=== PATIENT | male | born 1970 | race African-American/Black ===

== ENCOUNTER 2023-08-22 09:14 | Outpatient (CLI) | payer OTHER, SELFPAY ==
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
== END 2023-08-22 09:15 | disposition home or self-care (01) ==
DX: M86.8X6 Other osteomyelitis, lower leg (principal)
CPT/HCPCS: 73590

== ENCOUNTER 2023-09-18 08:26 | Outpatient (CLI) | payer OTHER, SELFPAY ==
[2023-09-20 14:11] VITALS: BMI 37.2
--- NOTE | 2023-09-20 14:11 | WPDHOMESLEEP ---
Sleep Study - Home Unattended Date of Study: 09/18/23 Ordering Provider: Enedina Chow NP Interpreting Provider: Chloe Arellano MD Home Sleep Study Type: Watch PAT Height: 1.91 m Weight: 135.171 kg Body Mass Index: 37.2 Neck Circumference (inches): 18.5 [place]: 12 Reason for Sleep Study Hypersomnolence Sleep History Carlitos Melendez is a 53-year-old male with snoring, deviated septum, hypertrophy of the nasal turbinates and allergic rhinitis. He complains of excessive daytime fatigue and non-restorative sleep. He has had COVID about 5 times and has lost his sense of taste and smell. He rarely awakens from sleep feeling short of breath or awakens at night with heartburn, belching or coughing. He frequently snores, rarely loudly enough that others complain about it. He occasionally has difficulty sleeping with a cold. He rarely wakes up gasping for breath at night. He rarely sweats excessively at night. He frequently notices his heart pounding or beating irregularly at night. He does not fall asleep during the day, does not fall asleep involuntarily or while driving. He does not have loss of muscle tone with strong emotion. He rarely has daytime difficulties due to excessive sleepiness he rarely feels paralyzed on waking or falling asleep. He does not have vivid dreamlike scenes upon awakening or falling asleep. He occasionally feels afraid to go to sleep. He does not have nightmares. He occasionally remembers his dreams. He never has racing thoughts. He rarely feels sad or depressed. He occasionally worries and has anxiety. He rarely has muscular tension. He rarely notices parts of his body jerking. He rarely kicks at night. He rarely has crawling or aching feelings in his legs, occasionally has leg pain at night. He rarely has morning jaw pain. He does not grind his teeth at night. He occasionally is bothered by pain during the day. He never is awakened by pain at night. He never wakes up feeling stiff in the morning. He rarely wakes up with sore achy muscles. He does not wake up with pain in the neck and spine. Normal bedtime is 8:00 p.m. falling asleep within 15 minutes, waking up twice at night, will go get something to eat and then return to sleep within 10 minutes. He estimates getting 5 hours of sleep at night. His morning wake time is 5:00 a.m.. He takes naps in the afternoon or evening. A short nap lasting 10-15 minutes is not refreshing. He is drowsy for 2 hours after waking. He feels better in the morning compared to other times of day. Habits: none Caffeine: 1 or 2 cups per day Alcohol: none Recreational substances: none [facility] Past Medical History Medical History (Updated 09/20/23 @ 14:25 by Chloe Arellano MD) Acid reflux Allergic rhinitis Asthma Deviated nasal septum Diabetes Fatigue Hyperlipidemia Hypertension Family History Family History (Updated 09/20/23 @ 14:19 by Chloe Arellano MD) Other Asthma Hypertension Social History Social History (Updated 09/20/23 @ 14:20 by Chloe Arellano MD) Smoking status: Never smoker Medications Medications: Glipizide 5 mg Lisinopril 40 mg Rybelsus 7 mg Amlodipine besylate 10 mg Metformin HCL ER 500 mg extended release, 2 tablets b.i.d. Rosuvastatin calcium 10 mg daily Fingersticks to check glucose Sleep Procedure The sleep study was completed using [employer] a technically adequate device with seven channels: peripheral arterial tone, actigraphy, body position, snore, respiratory movement, pulse oximetry, sleep staging, and heart rate. Prior to using the device, the patient received verbal and written instructions for its application and was provided with the help desk phone number for additional telephonic instruction with 24-hour availability of qualified personnel to answer questions. Sleep Architecture The total recording time is 6 hours 9 minutes. The total sleep time is 5 hours 51 minutes. Sleep la
== END 2023-09-19 12:55 | disposition home or self-care (01) ==
LOC: ANHCSM 08:27
DX: G47.33 Obstructive sleep apnea (adult) (pediatric) (principal)
CPT/HCPCS: 95800

== ENCOUNTER 2023-10-16 08:50 | Outpatient (CLI) | payer OTHER, SELFPAY ==
--- NOTE | 2023-11-07 10:26 | WPDSLEEPSTUD ---
Sleep Study Date of Study: 10/16/23 Ordering Provider: Enedina Chow Interpreting Physician: Chloe Arellano MD Sleep Study Type: BiPAP Titration Height: 1.91 m Weight: 138.346 kg Body Mass Index: 38.1 Neck Circumference (inches): 19 [place]: 12 Reason for Sleep Study * 09/18/2023 WatchPat home sleep test = extremely severe obstructive sleep apnea with an overall apnea-hypopnea index 69, and a central apnea index of 6.1, desaturation to 68% and over 2 hours spent below 88% He returns for a titration Sleep History Carlitos Melendez is a 53-year-old male with snoring, deviated septum, hypertrophy of the nasal turbinates and allergic rhinitis. He complains of excessive daytime fatigue and non-restorative sleep. He has had COVID about 5 times and has lost his sense of taste and smell. He rarely awakens from sleep feeling short of breath or awakens at night with heartburn, belching or coughing. He frequently snores, rarely loudly enough that others complain about it. He occasionally has difficulty sleeping with a cold. He rarely wakes up gasping for breath at night. He rarely sweats excessively at night. He frequently notices his heart pounding or beating irregularly at night. He does not fall asleep during the day, does not fall asleep involuntarily or while driving. He does not have loss of muscle tone with strong emotion. He rarely has daytime difficulties due to excessive sleepiness he rarely feels paralyzed on waking or falling asleep. He does not have vivid dreamlike scenes upon awakening or falling asleep. He occasionally feels afraid to go to sleep. He does not have nightmares. He occasionally remembers his dreams. He never has racing thoughts. He rarely feels sad or depressed. He occasionally worries and has anxiety. He rarely has muscular tension. He rarely notices parts of his body jerking. He rarely kicks at night. He rarely has crawling or aching feelings in his legs, occasionally has leg pain at night. He rarely has morning jaw pain. He does not grind his teeth at night. He occasionally is bothered by pain during the day. He never is awakened by pain at night. He never wakes up feeling stiff in the morning. He rarely wakes up with sore achy muscles. He does not wake up with pain in the neck and spine. Normal bedtime is 8:00 p.m. falling asleep within 15 minutes, waking up twice at night, will go get something to eat and then return to sleep within 10 minutes. He estimates getting 5 hours of sleep at night. His morning wake time is 5:00 a.m.. He takes naps in the afternoon or evening. A short nap lasting 10-15 minutes is not refreshing. He is drowsy for 2 hours after waking. He feels better in the morning compared to other times of day. Habits: none Caffeine: 1 or 2 cups per day Alcohol: none Recreational substances: none [facility] Past Medical History Medical History Acid reflux Allergic rhinitis Asthma Deviated nasal septum Diabetes Fatigue Hyperlipidemia Hypertension Family History Family History Other Asthma Hypertension Social History Social History Smoking status: Never smoker Medications Medications: Glipizide 5 mg Lisinopril 40 mg Rybelsus 7 mg Amlodipine besylate 10 mg Metformin HCL ER 500 mg extended release, 2 tablets b.i.d. Rosuvastatin calcium 10 mg daily Fingersticks to check glucose Sleep Procedure A full CPAP/BiPAP polysomnogram using the [employer] multi-channel system recorded the standard physiologic parameters including EEG, EOG, submentalis EMG, anterior tibialis EMG, EKG, body position, nasal and oral airflow using nasal pressure sensor and thermistor. Respiratory parameters of chest and abdominal movements were recorded with Respiratory Inductance Plethysmography belts. Oxygen saturat
[2023-11-07 11:23] VITALS: BMI 38.1
== END 2023-10-17 07:16 | disposition home or self-care (01) ==
LOC: ANHCSM 08:51
DX: G47.33 Obstructive sleep apnea (adult) (pediatric) (principal); Z68.38 Body mass index [BMI] 38.0-38.9, adult
CPT/HCPCS: 95811

== ENCOUNTER 2023-10-17 13:46 | Outpatient (CLI) | payer OTHER, SELFPAY ==
--- NOTE | ~2023-10-17 | XR_ITS ---
XR chest 2V DATE: 10/17/2023 14:02 INDICATION: Cough for 2 weeks TECHNIQUE: PA and lateral views COMPARISON: None FINDINGS: No pulmonary infiltrate or consolidation, pleural effusion or pulmonary vascular congestion or pneumothorax. The cardiac and is also 3 unremarkable. IMPRESSION: No active cardiopulmonary disease Reviewed, dictated and finalized at location B.
--- NOTE | 2023-11-01 18:59 | P.SLEEP_ITS ---
Sleep Study Date of Study: 10/16/2023 Ordering Provider: LOUISA Hamm Interpreting Physician: Chloe Arellano MD Height: 1.91 m Weight: 138.3 kg Body Mass Index: 38.1 Neck Circumference (inches): 19 [place]: 12 Reason for Sleep Study This study was opened in error. Please see completed report 11/07/23. PMFSH Past Medical History Medical History Acid reflux Allergic rhinitis Asthma Deviated nasal septum Diabetes Fatigue Hyperlipidemia Hypertension Family History Family History Other Asthma Hypertension Social History Social History Smoking status: Never smoker Assessment and Plan Assessment and Plan (1) Obstructive sleep apnea: Code(s): G47.33 - Obstructive sleep apnea (adult) (pediatric) Status: Acute
== END 2023-10-17 13:47 | disposition home or self-care (01) ==
LOC: ANHIMG 13:49
DX: R05.1 Acute cough (principal)
CPT/HCPCS: 71046

== ENCOUNTER 2024-10-13 16:47 | Inpatient (IN) | payer OTHER, SELFPAY ==
[2024-10-13] VITALS (12 sets, daily range): BP systolic 107–143; BP diastolic 73–109; PULSE 110–135; RESP 17–23; TEMP 36.5–36.8; O2SAT 95–99; BMI 33.6
--- OUTSIDE RECORDS SUMMARY | 2024-10-13 16:49 | XMS_ITS | Referral Summary ---
Author Organization [facility] Address [address] [place] [address] Care Team Providers Care Quality Compliance Consultant Name Role Phone Referral, Self Primary Care Provider Unavailabl e Encounters Date Type Department Care Team Description 07/22/2024 2:16 PM BREAST WORKER - 07/22/2024 11:59 PM BREAST WORKER Hospital Encounter [facility] [address] [place] [address] Discharge Disposition: Discharge to home or self care 07/22/2024 1:20 PM BREAST WORKER Office Visit [facility] Infectious Diseases [address] [place] [address] Yazmin Loco NP Other chronic osteomyelitis of left tibia (HCC) (Primary Dx) from Last 3 Months Allergies No known active allergies Medications amLODIPine (NORVASC) 10 mg tablet Take 1 tablet (10 mg total) by mouth daily Active metFORMIN (GLUCOPHAGE) 500 mg tablet Take 1 tablet (500 mg total) by mouth 2 (two) times a day with meals Active semaglutide (Rybelsus) 7 mg tablet Take 1 tablet (7 mg total) by mouth daily Active lisinopriL (PRINIVIL,ZESTR IL) 20 mg tablet Take 1 tablet (20 mg total) by mouth daily Active rosuvastatin (CRESTOR) 10 mg tablet Take 1 tablet (10 mg total) by mouth daily Active albuterol HFA (PROVENTIL HFA,VENTOLIN HFA,PROAIR HFA) 90 mcg/actuation inhaler Inhale 2 puffs every 6 (six) hours as needed for wheezing Active cephalexin (KEFLEX) 500 mg capsule Take 1 capsule (500 mg total) by mouth Active montelukast (SINGULAIR) 10 mg tablet Take 1 tablet (10 mg total) by mouth nightly Active OneTouch Ultra Test strip USE 1 STRIP TO CHECK GLUCOSE TWICE DAILY 30 MINUTES BEFORE AND AFTER 1ST MEAL OF THE DAY, BRING READING TO YOUR NEXT APPOINTMENT 4 Active FLUoxetine (PROzac) 20 mg capsule TAKE 1 CAPSULE BY MOUTH ONCE DAILY IN THE MORNING 4 Active cetirizine (ZyrTEC) 10 mg tablet Take 1 tablet (10 mg total) by mouth daily 4 Active polycarbophil (FIBERCON) 625 mg tablet Take 1 tablet (625 mg total) by mouth 2 (two) times a day Active OneTouch Delica Plus Lancet 33 gauge misc USE 1 TO CHECK GLUCOSE TWICE DAILY 30 MINUTES BEFORE AND AFTER 1ST MEAL OF THE DAY, BRING READING TO YOUR NEXT APPOINTMENT 4 Active risperiDONE (RisperDAL) 4 mg tablet Take 1 tablet (4 mg total) by mouth nightly 4 Active risperiDONE (RisperDAL) 3 mg tablet Take 1 tablet (3 mg total) by mouth nightly 4 Active omeprazole (PriLOSEC) 20 mg capsule Take 1 capsule (20 mg total) by mouth daily Active fluticasone propionate (FLONASE) 50 mcg/actuation nasal spray USE 1 SPRAY(S) IN EACH NOSTRIL ONCE DAILY 4 Active triamcinolone (NASACORT) 55 mcg nasal inhaler Administer 2 sprays into affected nostril(s) daily Active doxycycline 100 mg tablet Take 1 tablet (100 mg total) by mouth daily 30 tablet 5 5 01/19/20 25 Active naproxen (NAPROSYN) 500 mg tablet Take 1 tablet (500 mg total) by mouth 2 (two) times a day with meals for 10 days 20 tablet 5 Active Active Problems Problem Noted Date Diagnosed Date Osteomyelitis of left tibia 10/14/2023 Assessment & Plan (07/27/2024 12:09 PM BREAST WORKER): -Patient presents to clinic for a follow up appointment. -We will continue him on his Doxycyline for chronic suppression. -We reivewed his x-rays - We will have him reach out to ortho to reschedule his appointment. -We will repeat labs today -We reviewed his CT scan. -We will order some naproxen to help with the pain while he waits to get into Ortho. - Discussed with patient the rational for treatment, culture results, risk of recurrent infection, signs/symptoms of recurrent infection, and to contact ID clinic with any questions or concerns. Assessment & Plan (03/09/2024 3:59 PM CDT): -Patient presents to clinic for a follow up appointment. -We will continue him on his Doxycyline for chronic suppression. -We reivewed his x-rays -His swelling and pain continues. We will have him reach out to ortho to reschedule his appointment. -We will repeat labs today -We reviewed his CT scan. -We will order some naproxen to help with the pain while he waits to get into Ortho. - Discussed with patient the rational for treatment, culture results, risk of recurrent infection, signs/symptoms of recurrent infection, and to contact ID clinic with any questions or concerns. Assessment & Plan (01/27/2024 12:37 PM CDT): -Patient presents to clinic for a follow up appointment. -We will continue him on his Doxycyline and have him stop the Keflex as this has not been dosed appropriately. -We reivewed his x-rays -His swelling and pain are much worse than before. We will reach out to Ortho to see if they are able to see the patient. -We will repeat labs today -We will get a CT scan of his leg -We will get him a cane to help with walking. -We will order some naproxen to help with the pain while he waits to get into Ortho. - Discussed with patient the rational for treatment, culture results, risk of recurrent infection, signs/symptoms of recurrent infection, and to contact ID clinic with any questions or concerns. Assessment & Plan (10/16/2023 4:27 PM CDT): -Patient presents to clinic for a new patient appointment. He would like to transfer care here from a previous ID doctor. -We will continue him on his Doxycyline and Keflex for now as his wound is currently looking well. -He had an x-ray that we will get uploaded and nominated so we can see what is going on in his leg. -We will follow up after his x-ray is uploaded - Discussed with patient the rational for treatment, culture results, risk of recurrent infection, signs/symptoms of recurrent infection, and to contact ID clinic with any questions or concerns. Diabetes 10/14/2023 Hypertension 10/14/2023 Asthma 10/14/2023 High cholesterol 10/14/2023 Social History Tobacco Use Types Packs/Day Years Used Date Smoking Tobacco: Never Smokeless Tobacco: Never Tobacco Cessation:Counseling Given: Not Answered Sex and Gender Information Value Date Recorded Sex Assigned at Not on file Legal Sex Male 2:56 PM CDT Gender Identity Not on file Sexual Orientation Not on file Last Filed Vital Signs Vital Sign Reading Time Taken Comments Blood Pressure 109/70 07/22/2024 1:09 PM BREAST WORKER Pulse 93 07/22/2024 1:09 PM BREAST WORKER Temperature 36.8 C (98.3 F) 07/22/2024 1:09 PM BREAST WORKER Respiratory Rate 18 03/04/2024 1:14 PM CDT Oxygen Saturation 93% 07/22/2024 1:09 PM BREAST WORKER Inhaled Oxygen Concentration - - Weight 136.9 kg (301 lb 14.4 oz) 07/22/2024 1:09 PM BREAST WORKER Height 192 cm (6' 3.59 ) 07/22/2024 1:09 PM BREAST WORKER Body Mass Index 37.15 07/22/2024 1:09 PM BREAST WORKER Plan of Treatment Not on file Procedures Procedure Name Priority Date/Time Associated Diagnosis Comments EGFR Routine 07/22/2024 1:29 PM BREAST WORKER Other chronic osteomyelitis of left tibia (HCC) DIFFERENTIAL AUTO Routine 07/22/2024 1:2 9 PM BREAST WORKER Other chronic osteomyelitis of left tibia (HCC) GLUCOSE, RANDOM (OUTREACH) Routine 07/22/2024 1:29 PM BREAST WORKER Other chronic osteomyelitis of left tibia (HCC) COMPREHENSIVE METABOLIC PANEL WITHOUT GLUCOSE (OUTREACH) Routine 07/22/2024 1:29 PM BREAST WORKER Other chronic osteomyelitis of left tibia (HCC) CBC WITH AUTO DIFFERENTIAL Routine 07/22/2024 1:29 PM BREAST WORKER Other chronic osteomyelitis of left tibia (HCC) COMPREHENSIVE METABOLIC PANEL (OUTREACH) Routine 07/22/2024 1:29 PM BREAST WORKER Other chronic osteomyelitis of left tibia (HCC) from Last 3 Months Results * (ABNORMAL) Glucose, random (Outreach) (07/22/2024 1:29 PM BREAST WORKER) Glucose 347(H) 70 - 199 mg/dL Comment: Interpretive Data Fasting glucose >/= 126 mg/dl is diagnostic for diabetes. Fasting is defined as no caloric intake for at least 8 hours. Fasting glucose between 100 mg/dl to 125 mg/dl is diagnostic of prediabetes. In a patient with classic symptoms of hyperglycemia or hyperglycemic crisis, a random glucose >/= 200 mg/dl is diagnostic for diabetes. In the absence of unequivocal hyperglycemia, results should be confirmed by repeat testing. The classification and Diagnosis of Diabetes Diabetes Care 202; 46: S19-S40. Current interpretive data was last revised 2022. Blood 07/22/2024 1:29 PM BREAST WORKER 07/22/2024 2:35 PM BREAST WORKER Yazmin Loco NP LAB BLOOD ORDERABLES Final Result [facility] Department [place] [address] * eGFR (07/22/2024 1:29 PM BREAST WORKER) eGFR 68 >=60 mL/min/1. 73 m2 Comment: Interpretive Data Reference Interval Normal >/= 90 mL/min/1.73m2 Mildly decreased* 60 - 89 mL/min/1.73m2 Mildly to moderately decreased 45 - 59 mL/min/1.73m2 Moderately to severely decreased 30 - 44 mL/min/1.73m2 Severely decreased 15 - 29 mL/min/1.73m2 Kidney Failure < 15 mL/min/1.73m2 *Relative to young adult level Estimated glomerular filtration rate is determined by the 2020 CKD-EPI equation recommended by the National Kidney Foundation (A Unifying Approach to GFR Estimation: Recommendations of the NKF-ASK Task Force on Reassessing the Inclusion of Race in Diagnosing Kidney Disease, JASN 2020). The CKD-EPI equation should not be used for patients with unstable renal function and has not been validated in children and those over 70. Current interpretive data was last reviewed 2021. Blood 07/22/2024 1:29 PM BREAST WORKER 07/22/2024 2:50 PM BREAST WORKER us Yazmin Loco POISER BALANCE LAB BLOOD ORDERABLES Final Result [facility] Department [place] [address] * (ABNORMAL) Differential, auto (07/22/2024 1:29 PM BREAST WORKER) Neutrophil abs 5.9 1.5 - 6.5 K/cumm Imm gran abs 0.0 0.0 - 0.1 K/cumm [facility] Lymphocyte abs 2.4 0.8 - 3.3 K/cumm [facility] Monocyte abs 1.0(H) 0.2 - 0.8 K/cumm [facility] Eosinophil abs 0.0 0.0 - 0.5 K/cumm [facility] Basophil abs 0.1 0.0 - 0.1 K/cumm [facility] Neutrophil pct 63.3 % [facility] Comment: Interpretive Data Percent cell count reference ranges are not reported, since discordance with absolute values may lead to misinterpretation of CBC data. Current Interpretive Data was last revised on 2017. Imm gran pct 0.3 % [facility] Comment: Interpretive Data Percent cell count reference ranges are not reported, since discordance with absolute values may lead to misinterpretation of CBC data. Current Interpretive Data was last revised on 2017. Lymphocyte pct 25.3 % [facility] Comment: Interpretive Data Percent cell count reference ranges are not reported, since discordance with absolute values may lead to misinterpretation of CBC data. Current Interpretive Data was last revised on 2017. Monocyte pct 10.2 % [facility] Comment: Interpretive Data Percent cell count reference ranges are not reported, since discordance with absolute values may lead to misinterpretation of CBC data. Current Interpretive Data was last revised on 2017. Eosinophil pct 0.4 % [facility] Comment: Interpretive Data Percent cell count reference ranges are not reported, since discordance with absolute values may lead to misinterpretation of CBC data. Current Interpretive Data was last revised on 2017. Basophil pct 0.5 % [facility] Comment: Interpretive Data Percent cell count reference ranges are not reported, since discordance with absolute values may lead to misinterpretation of CBC data. Current Interpretive Data was last revised on 2017. Blood 07/22/2024 1:29 PM BREAST WORKER 07/22/2024 2:35 PM BREAST WORKER Yazmin Loco POISER BALANCE LAB BLOOD ORDERABLES Final Result [facility] Department [place] [address] * Comprehensive metabolic panel, without glucose (Outreach) (07/22/2024 1:29 PM BREAST WORKER) Sodium 140 135 - 145 mmol/L Potassium, pl 4.6 3.3 - 4.9 mmol/L [facility] Chloride 99 97 - 110 mmol/L [facility] CO2 28 22 - 32 mmol/L [facility] Anion gap 13 2 - 15 mmol/L [facility] BUN 16 6 - 25 mg/dL [facility] Creatinine 1.25 0.80 - 1.30 mg/dL [facility] Calcium 9.6 8.5 - 10.3 mg/dL [facility] Protein, pl 7.7 6.5 - 8.5 g/dL [facility] Albumin 4.4 3.5 - 5.0 g/dL [facility] Bilirubin, total 1.0 0.1 - 1.2 mg/dL [facility] Alk phos 109 40 - 130 Units/L [facility] AST 17 10 - 50 Units/L [facility] ALT 28 7 - 55 Units/L [facility] Blood 07/22/2024 1:29 PM BREAST WORKER 07/22/2024 2:35 PM BREAST WORKER us Yazmin Loco NP LAB BLOOD ORDERABLES Final Result [facility] [place] [address] * CBC with auto differential (07/22/2024 1:29 PM BREAST WORKER) [facility] WBC 9.3 3.8 - 9.9 K/cumm Hgb 15.6 13.0 - 17.5 g/dL [facility] Hct 47.7 38.9 - 50.3 % [facility] Plt 230 150 - 400 K/cumm [facility] MPV 11.8 9.1 - 12.3 fL [facility] RBC 5.68 4.30 - 5.80 M/cumm [facility] MCV 84.0 81.3 - 96.4 fL [facility] MCH 27.5 27.1 - 33.3 pg [facility] MCHC 32.7 32.3 - 35.7 g/dL [facility] RDW CV 12.8 11.1 - 14.9 % [facility] RDW SD 39.1 35.7 - 48.1 fL [facility] NRBC abs 0.00 0.00 - 0.01 K/cumm [facility] Blood 07/22/2024 1:29 PM BREAST WORKER 07/22/2024 2:35 PM BREAST WORKER us Yazmin Loco NP LAB BLOOD ORDERABLES Final Result [facility] [place] [address] from Last 3 Months Insurance [facility] Care Teams Quality Compliance Consultant Relationship Specialty Start Date End Date Referral, Self PCP - General 10/09/23
--- OUTSIDE RECORDS SUMMARY | 2024-10-13 16:50 | XMS_ITS | Clinical Summary ---
Author Organization [facility] Address [address] [place] [address] Phone Care Team Providers Care Supply Chain Intern Name Role Phone Provider, None Primary Care Provider Unavailabl e Provider, None Unavailable Unavailable Toni Haque MD Unavailable Allergies No known active allergies Medications albuterol 108 (90 Base) MCG/ACT Aerosol Solution take 2 Puffs by inhalation. Active amLODIPine (NORVASC) 10 MG Tablet Take 10 mg by mouth daily. Active Amoxicillin 500 MG Tablet take 1 tablet by mouth every 8 hours for 7 days 5 Active Calcium Polycarbophil (polycarbophil calcium) 625 MG Tablet Take 625 mg by mouth. Active cephALEXin (KEFLEX) 500 MG Capsule Take 500 mg by mouth. Active cetirizine (ZyrTEC) 10 MG Tablet Take 10 mg by mouth daily. 4 Active doxycycline hyclate (VIBRAMYCIN) 100 MG Capsule Take 100 mg by mouth. Active FLUoxetine (PROzac) 20 MG Capsule Take 20 mg by mouth every morning. Active Glucose Blood (OneTouch Ultra Test) Strip USE 1 STRIP TO CHECK GLUCOSE TWICE DAILY 30 MINUTES BEFORE AND AFTER 1ST MEAL OF THE DAY, BRING READING TO YOUR NEXT APPOINTMENT 4 Active Lancets (OneTouch Delica Plus [id number]) Misc USE 1 TO CHECK GLUCOSE TWICE DAILY 30 MINUTES BEFORE AND AFTER 1ST MEAL OF THE DAY, BRING READING TO YOUR NEXT APPOINTMENT Active lisinopril (PRINIVIL, ZESTRIL) 20 MG Tablet take 1 tablet by mouth once daily for high blood pressure Active naproxen 500 MG Tablet Delayed Response Take 500 mg by mouth. Active omeprazole (PriLOSEC) 20 MG CAPSULE DELAYED RELEASE Take 20 mg by mouth daily. Active phenazopyridine (PYRIDIUM) 200 MG Tablet TAKE 1 TABLET BY MOUTH THREE TIMES DAILY FOR 2 DAYS NEEDED FOR URINARY PAIN 5 Active risperiDONE (RISPERDAL) 3 MG Tablet Take 3 mg by mouth. 4 Active rosuvastatin (CRESTOR) 10 MG Tablet Take 10 mg by mouth daily. Active Semaglutide (Rybelsus) 7 MG Tablet Take 7 mg by mouth. Active Encounters Date Type Department Care Team Description 08/12/2024 8:45 AM CDT Office Visit [facility] [address] [place] [phone] Toni Haque MD Hematuria, unspecified type (Primary Dx); Prostate cancer screening Discharge Disposition: Discharged to home or Selfcare 08/12/2024 Travel from Last 3 Months Immunizations Immunization Administration Dates Next Due Covid-19, Mrna, Lnp-s, Pf, 1 00 Mcg Or 50 Mcg Dose (MODERNA) 07/12/2021 Family History Medical History Relation Name Comments Colon Cancer Sister Relation Name Status Comments Sister Other Social History Tobacco Use Types Packs/Day Years Used Date Smoking Tobacco: Former Cigarettes Smokeless Tobacco: Never Tobacco Cessation:Counseling Given: Not Answered Alcohol Use Standard Drinks/Week Comments Yes 0 (1 standard drink = 0.6 oz pur e alcohol) Rare Sexually Active Control Partners Comments Not Currently Sex and Gender Information Value Date Recorded Sex Assigned at Not on file Legal Sex 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 Gender Identity Not on file Sexual Orientation Not on file Last Filed Vital Signs Vital Sign Reading Time Taken Comments Blood Pressure 132/77 08/12/2024 9:45 AM CDT Pulse 66 08/12/2024 9:45 AM CDT Temperature - - Respiratory Rate 18 08/12/2024 9:45 AM CDT Oxygen Saturation 94% 08/12/2024 9:45 AM CDT Inhaled Oxygen Concentration - - Weight - - Height 190.5 cm (6' 3 ) 08/12/2024 9:45 AM CDT Body Mass Index - - Plan of Treatment Upcoming Encounters Date Type Department Care Team (Late st Contact Info) Description 08/18/2025 9:30 AM CDT Office Visit [facility] [address] [place] [address] Toni Haque MD [address] [place] [address] Health Maintenance Due Date Last Done Comments Hepatitis C Virus (HCV) Screening 1968 TdaP Immunization 1968 Hepatitis B Immunization (1 of 3 - 19+ 3-dose series) 1987 Colonoscopy 2013 Colorectal Cancer Screening 2013 Cologuard 2018 Immunochemical Fecal Occult Blood 2018 Pneumococcal Immunization (5 0+ years) (1 of 1 - PCV) 2018 Zoster Immunization (1 of 2) 2018 Influenza Immunization (#1) 2024 SARS-COV-2 Immunization ( - season) 2024 07/12/2021, 08/31/2020, 08/03/2020 Respiratory Syncytial Virus (RSV) Immunization (Adult) (1 - 1-dose 75+ series) 2043 PSA Discussion Completed 08/12/2024 Meningococcal Immunization (ACWY) Aged Out No longer eligible b ased on patient's age to complete this topic Rotavirus Immunization Aged Out No lo nger eligible based on patient's age to complete this topic Procedures Procedure Name Priority Date/Time Associated Diagnosis Comments PSA SCREEN Routine 08/12/2024 10:30 AM CDT Prostate cancer screening POCT UA AUTOMATED W/O MICRO Routine 08/12/2024 9:16 AM CDT Hematuria, unspecified type from Last 3 Months Results * (ABNORMAL) PSA SCREEN (08/12/2024 10:30 AM CDT) PSA SCREEN, TOTAL 4.34(H) <4.00 ng/mL 08/12/2024 12:08 PM CDT [facility] Blood Venipuncture / Unknown 08/12/2024 10:30 AM CDT 08/12/2024 11:18 AM CDT Narrative [facility] - 08/12/2024 12:08 PM CDT The ALINITY Total PSA assay is a Chemiluminescent Microparticle Immunoassay (CMIA) for the quantitative determination of total PSA (both free PSA and PSA complexed to [id number]) in human serum. Total PSA values obtained with different assay methods, including [employer] PSA assays, cannot be used interchangeably. us Toni Haque MD CHEMISTRY ORDERABLES Final Resul t [facility] [address] [place] [address] * (ABNORMAL) POCT UA AUTOMATED W/O MICRO (08/12/2024 9:16 AM CDT) POC UA SPECIFIC GRAVITY 1.010 URINE PH 5.0 5.0 - 9.0 POC URINE LEUKOCYTES Negative Negative Celso/uL POC URINE NITRITE Negative Negative POC URINE PROTEIN Negative Negative mg/dL POC URINE GLUCOSE >1000 mg/dL(A) Negative, Norm mg/dL POC URINE KETONE Negative Negative mg/dL POC URINE UROBILINOGEN Norm Norm, 0.2 E.U./dL (mg/dL), 1 E.U./dL (mg/dL) POC URINE BILIRUBIN Negative Negative mg/dL POC URINE BLOOD INSTRUMENT Negative Negative Jose/uL POC URINE COLOR Yellow POC URINE CLARITY Clear Urine 08/12/2024 9:16 AM CDT us Toni Haque MD POINT OF CARE TESTING (MANUAL) F inal Result from Last 3 Months Insurance [place]ICAID [place] Care Teams Supply Chain Intern Relationship Specialty Start Date End Date Provider, None [place] PCP - General 08/11/24 Provider, None [place] 08/12/24 Toni Haque MD [address] [facility] [address] [place] [phone] Consulting Physician Urology 08/12/24
--- OUTSIDE RECORDS SUMMARY | 2024-10-13 16:50 | XMS_ITS | Clinical Summary ---
Author Organization [facility] Address [address] [place] [address] Care Team Providers Care Machine Ii Trimmer Name Role Phone Referral, Self Primary Care Provider Unavailabl e Allergies No known active allergies Medications amLODIPine [...] 10/14/2023 Assessment & Plan (07/27/2024 12:09 PM RESEARCH STUDY ASSISTANT): -Patient presents to clinic for a follow [...] Hypertension 10/14/2023 Asthma 10/14/2023 High cholesterol 10/14/2023 Encounters Date Type Department Care Team Description 07/22/2024 2:16 PM RESEARCH STUDY ASSISTANT - 07/22/2024 11:59 PM RESEARCH STUDY ASSISTANT Hospital Encounter [facility] [address] [place] [address] Discharge Disposition: Discharge to home or self care 07/22/2024 1:20 PM RESEARCH STUDY ASSISTANT Office Visit [facility] Infectious Diseases [address] [place] [id number] Yazmin Loco NP Other chronic osteomyelitis of left tibia (HCC) (Primary Dx) from Last 3 Months Social History Tobacco Use Types Packs/Day Years Used Date Smoking Tobacco: Never Smokeless Tobacco: Never Tobacco Cessation:Counseling Given: Not Answered Sex and Gender Information Value Date Recorded Sex Assigned at Not on file Legal Sex Male 2:56 PM CDT Gender Identity Not on file Sexual Orientation Not on file Obstetrics History Last Filed Vital Signs Vital Sign Reading Time Taken Comments Blood Pressure 109/70 07/22/2024 1:09 PM RESEARCH STUDY ASSISTANT Pulse 93 07/22/2024 1:09 PM RESEARCH STUDY ASSISTANT Temperature 36.8 C (98.3 F) 07/22/2024 1:09 PM RESEARCH STUDY ASSISTANT Respiratory Rate 18 03/04/2024 1:14 PM CDT Oxygen Saturation 93% 07/22/2024 1:09 PM RESEARCH STUDY ASSISTANT Inhaled Oxygen Concentration - - Weight 136.9 kg (301 lb 14.4 oz) 07/22/2024 1:09 PM RESEARCH STUDY ASSISTANT Height 192 cm (6' 3.59 ) 07/22/2024 1:09 PM RESEARCH STUDY ASSISTANT Body Mass Index 37.15 07/22/2024 1:09 PM RESEARCH STUDY ASSISTANT Plan of Treatment Health Maintenance Due Date Last Done Comments Albumin Creatinine Ratio, Urine 1968 Colon Cancer Screening-Colonoscopy 1968 Depression Screening 1968 Hemoglobin A1C 1968 Hepatitis C Screening 1968 Prostate Cancer Screening-PSA 1968 Dilated Eye Exam 1968 Foot Exam 1968 Lipid Panel 1968 DTaP/Tdap/Td Vaccine (1 - Tdap) 1979 Hepatitis B Screening 1986 Regular Well Visit/Exam 18-64 1986 Pneumococcal vaccine <65 (1 of 2 - PCV) 1987 Zoster Vaccine (1 of 2) 2018 Covid-19 Vaccine ( season) 2024 07/12/2021, 08/31/2020, 08/03/2020 Influenza Vaccine (Season Ended) 2025 eGFR 07/22/2025 07/22/2024, 01/22/2024 Procedures Procedure Name Priority Date/Time Associated Diagnosis Comments EGFR Routine 07/22/2024 1:29 PM RESEARCH STUDY ASSISTANT Other chronic osteomyelitis of left tibia (HCC) DIFFERENTIAL AUTO Routine 07/22/2024 1:2 9 PM RESEARCH STUDY ASSISTANT Other chronic osteomyelitis of left tibia (HCC) GLUCOSE, RANDOM (OUTREACH) Routine 07/22/2024 1:29 PM RESEARCH STUDY ASSISTANT Other chronic osteomyelitis of left tibia (HCC) COMPREHENSIVE METABOLIC PANEL WITHOUT GLUCOSE (OUTREACH) Routine 07/22/2024 1:29 PM RESEARCH STUDY ASSISTANT Other chronic osteomyelitis of left tibia (HCC) CBC WITH AUTO DIFFERENTIAL Routine 07/22/2024 1:29 PM RESEARCH STUDY ASSISTANT Other chronic osteomyelitis of left tibia (HCC) COMPREHENSIVE METABOLIC PANEL (OUTREACH) Routine 07/22/2024 1:29 PM RESEARCH STUDY ASSISTANT Other chronic osteomyelitis of left tibia (HCC) from Last 3 Months Results * (ABNORMAL) Glucose, random (Outreach) (07/22/2024 1:29 PM RESEARCH STUDY ASSISTANT) Glucose 347(H) 70 - 199 mg/dL Comment: [...] classification and Diagnosis of Diabetes Diabetes Care 2021; 46: S19-S40. Current interpretive data was last revised 2022. Blood 07/22/2024 1:29 PM RESEARCH STUDY ASSISTANT 07/22/2024 2:35 PM RESEARCH STUDY ASSISTANT Yazmin Loco NP LAB BLOOD ORDERABLES Final Result Performing Organization Address [facility] Co de Phone Number [facility] [place] [address] * eGFR (07/22/2024 1:29 PM RESEARCH STUDY ASSISTANT) Pathologist [facility] eGFR 68 >=60 mL/min/1. 73 m2 Comment: [...] last reviewed 2021. Blood 07/22/2024 1:29 PM RESEARCH STUDY ASSISTANT 07/22/2024 2:50 PM RESEARCH STUDY ASSISTANT Yazmin Loco NP LAB BLOOD ORDERABLES Final Result Performing Organization Address [facility] Co de Phone Number [facility] [place] [address] * (ABNORMAL) Differential, auto (07/22/2024 1:29 PM RESEARCH STUDY ASSISTANT) Pathologist [facility] Neutrophil abs 5.9 1.5 - 6.5 K/cumm Imm gran abs 0.0 0.0 - 0.1 K/cumm [facility] Lymphocyte abs 2.4 0.8 - 3.3 K/cumm [facility] Monocyte abs 1.0(H) 0.2 - 0.8 K/cumm [facility] Eosinophil abs 0.0 0.0 - 0.5 K/cumm [facility] Basophil abs 0.1 0.0 - 0.1 K/cumm [facility] Neutrophil pct 63.3 % [facility] Comment: Interpretive Data Percent cell count reference ranges are not reported, since discordance with absolute values may lead to misinterpretation of CBC data. Current Interpretive Data was last revised on 2017. Imm gran pct 0.3 % [facility] Comment: Interpretive Data Percent cell count reference ranges are not reported, since discordance with absolute values may lead to misinterpretation of CBC data. Current Interpretive Data was last revised on 2017. Lymphocyte pct 25.3 % [facility] Comment: Interpretive Data Percent cell count reference ranges are not reported, since discordance with absolute values may lead to misinterpretation of CBC data. Current Interpretive Data was last revised on 2017. Monocyte pct 10.2 % [facility] Comment: Interpretive Data Percent cell count reference ranges are not reported, since discordance with absolute values may lead to misinterpretation of CBC data. Current Interpretive Data was last revised on 2017. Eosinophil pct 0.4 % [facility] Comment: Interpretive Data Percent cell count reference ranges are not reported, since discordance with absolute values may lead to misinterpretation of CBC data. Current Interpretive Data was last revised on 2017. Basophil pct 0.5 % [facility] Comment: Interpretive Data Percent cell count reference ranges are not reported, since discordance with absolute values may lead to misinterpretation of CBC data. Current Interpretive Data was last revised on 2017. Blood 07/22/2024 1:29 PM RESEARCH STUDY ASSISTANT 07/22/2024 2:35 PM RESEARCH STUDY ASSISTANT us Yazmin Loco NP LAB BLOOD ORDERABLES Final Result [facility] [address] [facility] [place] [address] * Comprehensive metabolic panel, without glucose (Outreach) (07/22/2024 1:29 PM RESEARCH STUDY ASSISTANT) [facility] Sodium 140 135 - 145 mmol/L Potassium, pl 4.6 3.3 - 4.9 mmol/L [facility] Chloride 99 97 - 110 mmol/L [facility] CO2 28 22 - 32 mmol/L [facility] Anion gap 13 2 - 15 mmol/L [facility] BUN 16 6 - 25 mg/dL [facility] Creatinine 1.25 0.80 - 1.30 mg/dL [facility] Calcium 9.6 8.5 - 10.3 mg/dL [facility] Protein, pl 7.7 6.5 - 8.5 g/dL [facility] Albumin 4.4 3.5 - 5.0 g/dL [facility] Bilirubin, total 1.0 0.1 - 1.2 mg/dL [facility] Alk phos 109 40 - 130 Units/L [facility] AST 17 10 - 50 Units/L [facility] ALT 28 7 - 55 Units/L [facility] Blood 07/22/2024 1:29 PM RESEARCH STUDY ASSISTANT 07/22/2024 2:35 PM RESEARCH STUDY ASSISTANT Yazmin Loco NP LAB BLOOD ORDERABLES Final Result [facility] [address] [facility] [place] [address] * CBC with auto differential (07/22/2024 1:29 PM RESEARCH STUDY ASSISTANT) [facility] WBC 9.3 3.8 - 9.9 K/cumm Hgb 15.6 13.0 - 17.5 g/dL [facility] Hct 47.7 38.9 - 50.3 % [facility] Plt 230 150 - 400 K/cumm [facility] MPV 11.8 9.1 - 12.3 fL [facility] RBC 5.68 4.30 - 5.80 M/cumm [facility] MCV 84.0 81.3 - 96.4 fL [facility] MCH 27.5 27.1 - 33.3 pg [facility] MCHC 32.7 32.3 - 35.7 g/dL [facility] RDW CV 12.8 11.1 - 14.9 % [facility] RDW SD 39.1 35.7 - 48.1 fL [facility] NRBC abs 0.00 0.00 - 0.01 K/cumm [facility] Blood 07/22/2024 1:29 PM RESEARCH STUDY ASSISTANT 07/22/2024 2:35 PM RESEARCH STUDY ASSISTANT Yazmin Loco [employer]STRUCTOR LAB BLOOD ORDERABLES Final Result [facility] [address] [facility] [place] [address] from Last 3 Months Insurance [facility] Care Teams Machine Ii Trimmer Relationship Specialty Start Date End Date Referral, Self PCP - General 10/09/23
--- NOTE | 2024-10-13 18:07 | ECG_ITS ---
Test Date: 2024-10-13 18:24:22 Measurements Intervals [place] Rate: 128 P: 0 ME: 0 QRS: -49 QRSD: 106 T: -66 QT: 284 QTc: 416 Interpretive Statements ATRIAL FLUTTER/TACHYCARDIA WITH RAPID VENTRICULAR RESPONSE WITH ABERRANT CONDUCTION OR VENTRICULAR PREMATURE COMPLEXES LEFT ANTERIOR FASCICULAR BLOCK [QRS AXIS <= -45, QR IN I, RS IN II] No previous ECG available for comparison Electronically Signed On 10-14-2024 11:50:24 CDT by Stacy Velasquez M.D.
--- NOTE | 2024-10-13 18:08 | ED.RECABL ---
HPI - Recheck/Abnormal Lab/Rx General Chief Complaint: Recheck/Abnormal Lab/Rx <Cherry Carbajal PA-C - Last Filed: 10/13/24 18:10> Stated Complaint: elevated blood sugar <Cherry Carbajal PA-C - Last Filed: 10/13/24 18:10> Time Seen by Provider: 10/13/24 18:46 <Cherry Carbajal PA-C - Last Filed: 10/13/24 18:10> Focused HPI: 54-year-old male with history of type 2 diabetes presents to emergency department for hyperglycemia. Patient states he went to his PCP today due to urinary frequency and was told his blood glucose is greater than 400 and ago to the ED. Patient denies any symptoms other than urinary frequency. Denies dysuria or hematuria, abdominal pain, nausea vomiting, chest pain or shortness of breath. States he has been taking his metformin and semaglutide as directed. Denies recent medication changes. patient is found to be tachycardic in triage. States he feels anxious being in the ER. GENERAL: Well-appearing, well-nourished, and in no acute distress. HEAD: Normocephalic, atraumatic. CHEST: Clear to auscultation. No respiratory distress. HEART: Tachycardic, regular rhythm. NEURO: Alert and oriented x3. Patient screened in triage and initial orders placed. Additional care and disposition to be based upon diagnostic testing and treatment. <Cherry Carbajal PA-C - Last Filed: 10/13/24 18:10> History of Present Illness HPI narrative: Patient is a 54-year-old gentleman presents emergency department chief hyperglycemia. Patient has prior history of diabetes reports that he uses oral agents and reports that his blood sugars have been running in the 400 the patient states he has been thirsty all the time and reports he has been urinating all the time. The patient denies chest pain denies shortness of breath. <Dada Carty MD - Last Filed: 10/13/24 19:50> Related Data Allergies/Adverse Reactions: Allergies Allergy/AdvReac Type Severity Reaction Status Date / Time No Known Allergies Allergy Verified 10/13/24 16:57 <Cherry Carbajal PA-C - Last Filed: 10/13/24 18:10> Review of Systems Review of Systems: A 10 system review of systems was completed on the patient and is negative except for what is stated in the HPI. Nursing and ancillary documentation was reviewed. <Dada Carty MD - Last Filed: 10/13/24 19:50> PMFSH Past Medical History Medical History: Medical History Hyperlipidemia Hypertension Diabetes Asthma Acid reflux Fatigue Deviated nasal septum Allergic rhinitis <Cherry Carbajal PA-C - Last Filed: 10/13/24 18:10> Family History Family History: Family History Other Asthma Hypertension <Cherry Carbajal PA-C - Last Filed: 10/13/24 18:10> Social History Social History: Social History Smoking status: Never smoker <Cherry Carbajal PA-C - Last Filed: 10/13/24 18:10> Exam Narrative: GENERAL: Well-appearing, well-nourished, and in no acute distress. HEAD: Normocephalic, atraumatic. EYES: PERRLA and EOMI. ENT: Nares clear, no rhinorrhea or epistaxis. Mucous membranes moist. NECK: Supple. CHEST: Clear to auscultation. No respiratory distress. HEART: Regular rate and rhythm. No murmur heard. Normal peripheral pulses. ABDOMEN: Soft, nontender, nondistended, normal active bowel sounds. EXTREMITIES: Normal range of motion. No edema. SKIN: Warm, dry, no rash. NEURO: No focal deficits. Alert and oriented x3. PSYCH: Normal mood and affect. <Dada Carty MD - Last Filed: 10/13/24 19:50> Course Vital Signs Vital signs: Vital Signs Temperature 36.8 C 10/13/24 16:54 Pulse Rate 120 H 10/13/24 16:54 Respiratory Rate 18 10/13/24 16:54 Blood Pressure 118/73 10/13/24 16:54 Pulse Oximetry 95 10/13/24 16:54 Oxygen Delivery Room Air 10/13/24 16:54 Temperature 36.8 C 10/13/24 16:54 Pulse Rate 120 H 10/13/24 16:54 Respiratory Rate 22 H 10/13/24 18:38 Blood Pressure 118/73 10/13/24 16:54 Pulse Oximetry 95 10/13/24 16:54 Oxygen Delivery Room Air 10/13/24 16:54 <Cherry Carbajal PA-C - Last Filed: 10/13/24 18:10> Vital Signs Temperature 36.8 C 10/13/24 16:54 Pulse Rate 120 H 10/13/24 16:54 Respiratory Rate 18 10/13/24 16:54 Blood Pressure 118/73 10/13/24 16:54 Pulse Oximetry 95 10/13/24 16:54 Oxygen Delivery Room Air 10/13/24 16:54 Temperature 36.8 C 10/13/24 16:54 Pulse Rate 120 H 10/13/24 16:54 Respiratory Rate 22 H 10/13/24 18:38 Blood Pressure 118/73 10/13/24 16:54 Pulse Oximetry 95 10/13/24 16:54 Oxygen Delivery Room Air 10/13/24 16:54 <Dada Carty MD - Last Filed: 10/13/24 19:50> MDM - Recheck/Abnormal Lab/Rx MDM Narrative Medical decision making narrative: Differential diagnosis includes HHS, DKA, dehydration, Patient was moderately tachycardic of but the patient is hyperglycemic with a blood sugar in the 400s patient only had an anion gap of 14 beta hydroxybutyrate was elevated 3.06. Blood gas showed a normal pH. Patient was given fluid boluses in the emergency department started on insulin drip <Dada Carty MD - Last Filed: 10/13/24 19:50> Lab Data Result diagrams: 10/13/24 18:31 10/13/24 18:31 <Cherry Carbajal PA-C - Last Filed: 10/13/24 18:10> Labs: Lab Results 10/13/24 10/13/24 10/13/24 Range/Units 18:30 18:31 18:31 WBC 8.4 (4.5-10.0) K/mm3 RBC 5.36 (4.6-6.20) M/mm3 Hgb 15.3 (14.0-18.0) g/dL Hct 46.6 (42.0-52.0) % MCV 86.9 (80-100) fl MCH 28.5 (26-34) pg MCHC 32.8 (32-36) g/dl RDW 12.6 (11.5-14.5) % Plt Count 230 (150-375) k/mm3 MPV 11.8 H (7.4-10.4) fl Immature Gran % (Auto) 0.2 (0-0.5) % Neut % (Auto) 64.8 (45.5-73.1) % Lymph % (Auto) 22.3 (18.3-44.2) % [place] % (Auto) 10.5 H (2.6-8.5) % Eos % (Auto) 1.6 (0-4.4) % Baso % (Auto) 0.6 (0.2-1.2) % Lymph # (Auto) 1.87 (0.9-3.2) K/mm3 [place] # (Auto) 0.9 H (0.1-0.6) K/mm3 Eos # (Auto) 0.1 (0-0.3) K/mm3 Baso # (Auto) 0.1 (0.0-0.1) K/mm3 Abs Immat Gran (auto) 0.02 (0.00-0.031) K/mm3 Absolute Neuts (auto) 5.4 (1.3-6.7) K/mm3 Absolute Nucleated RBC 0.000 (0.0-0.012) K/mm3 Nucleated RBC % 0.0 (0.0-0.2) % Sodium Cancelled 132 L Potassium Cancelled Chloride Carbon Dioxide Anion Gap BUN Creatinine Estim Creat Clear Calc Estimated GFR Glucose POC Capillary Glucose (65-105) mg/dl Hemoglobin A1c Pending Calcium Phosphorus (2.5-4.5) mg/dL Magnesium (1.6-2.3) mg/dL Total Bilirubin AST ALT Alkaline Phosphatase Total Protein Albumin Beta-Hydroxybutyrate/Acetoacetate 3.06 H (0.02-0.27) mmol/L Urine Color Urine Appearance Urine pH Ur Specific Decker Urine Protein Urine Glucose (UA) Urine Ketones Ur Blood (Man) Urine Nitrate Urine Bilirubin Urine Urobilinogen Leukocyte Esterase Rfl 10/13/24 10/13/24 10/13/24 Range/Units 18:31 18:31 18:31 WBC (4.5-10.0) K/mm3 RBC (4.6-6.20) M/mm3 Hgb (14.0-18.0) g/dL Hct (42.0-52.0) % MCV (80-100) fl MCH (26-34) pg MCHC (32-36) g/dl RDW (11.5-14.5) % Plt Count (150-375) k/mm3 MPV (7.4-10.4) fl Immature Gran % (Auto) (0-0.5) % Neut % (Auto) (45.5-73.1) % Lymph % (Auto) (18.3-44.2) % [place] % (Auto) (2.6-8.5) % Eos % (Auto) (0-4.4) % Baso % (Auto) (0.2-1.2) % Lymph # (Auto) (0.9-3.2) K/mm3 [place] # (Auto) (0.1-0.6) K/mm3 Eos # (Auto) (0-0.3) K/mm3 Baso # (Auto) (0.0-0.1) K/mm3 Abs Immat Gran (auto) (0.00-0.031) K/mm3 Absolute Neuts (auto) (1.3-6.7) K/mm3 Absolute Nucleated RBC (0.0-0.012) K/mm3 Nucleated RBC % (0.0-0.2) % Sodium Potassium 4.6 Chloride Cancelled 95 L Carbon Dioxide Cancelled 23 Anion Gap Cancelled BUN Creatinine Estim Creat Clear Calc Estimated GFR Glucose POC Capillary Glucose (65-105) mg/dl Hemoglobin A1c Calcium Phosphorus (2.5-4.5) mg/dL Magnesium (1.6-2.3) mg/dL Total Bilirubin AST ALT Alkaline Phosphatase Total Protein Albumin Beta-Hydroxybutyrate/Acetoacetate (0.02-0.27) mmol/L Urine Color Urine Appearance Urine pH Ur Specific Decker Urine Protein Urine Glucose (UA) Urine Ketones Ur Blood (Man) Urine Nitrate Urine Bilirubin Urine Urobilinogen Leukocyte Esterase Rfl 10/13/24 10/13/24 10/13/24 Range/Units 18:31 18:31 18:31 WBC (4.5-10.0) K/mm3 RBC (4.6-6.20) M/mm3 Hgb (14.0-18.0) g/dL Hct (42.0-52.0) % MCV (80-100) fl MCH (26-34) pg MCHC (32-36) g/dl RDW (11.5-14.5) % Plt Count (150-375) k/mm3 MPV (7.4-10.4) fl Immature Gran % (Auto) (0-0.5) % Neut % (Auto) (45.5-73.1) % Lymph % (Auto) (18.3-44.2) % [place] % (Auto) (2.6-8.5) % Eos % (Auto) (0-4.4) % Baso % (Auto) (0.2-1.2) % Lymph # (Auto) (0.9-3.2) K/mm3 [place] # (Auto) (0.1-0.6) K/mm3 Eos # (Auto) (0-0.3) K/mm3 Baso # (Auto) (0.0-0.1) K/mm3 Abs Immat Gran (auto) (0.00-0.031) K/mm3 Absolute Neuts (auto) (1.3-6.7) K/mm3 Absolute Nucleated RBC (0.0-0.012) K/mm3 Nucleated RBC % (0.0-0.2) % Sodium Potassium Chloride Carbon Dioxide Anion Gap 14 H BUN Cancelled 29 H D Creatinine Cancelled 1.13 Estim Creat Clear Calc Cancelled Estimated GFR Glucose POC Capillary Glucose (65-105) mg/dl Hemoglobin A1c Calcium Phosphorus (2.5-4.5) mg/dL Magnesium (1.6-2.3) mg/dL Total Bilirubin AST ALT Alkaline Phosphatase Total Protein Albumin Beta-Hydroxybutyrate/Acetoacetate (0.02-0.27) mmol/L Urine Color Urine Appearance Urine pH Ur Specific Decker Urine Protein Urine Glucose (UA) Urine Ketones Ur Blood (Man) Urine Nitrate Urine Bilirubin Urine Urobilinogen Leukocyte Esterase Rfl 10/13/24 10/13/24 10/13/24 Range/Units 18:31 18:31 18:31 WBC (4.5-10.0) K/mm3 RBC (4.6-6.20) M/mm3 Hgb (14.0-18.0) g/dL Hct (42.0-52.0) % MCV (80-100) fl MCH (26-34) pg MCHC (32-36) g/dl RDW (11.5-14.5) % Plt Count (150-375) k/mm3 MPV (7.4-10.4) fl Immature Gran % (Auto) (0-0.5) % Neut % (Auto) (45.5-73.1) % Lymph % (Auto) (18.3-44.2) % [place] % (Auto) (2.6-8.5) % Eos % (Auto) (0-4.4) % Baso % (Auto) (0.2-1.2) % Lymph # (Auto) (0.9-3.2) K/mm3 [place] # (Auto) (0.1-0.6) K/mm3 Eos # (Auto) (0-0.3) K/mm3 Baso # (Auto) (0.0-0.1) K/mm3 Abs Immat Gran (auto) (0.00-0.031) K/mm3 Absolute Neuts (auto) (1.3-6.7) K/mm3 Absolute Nucleated RBC (0.0-0.012) K/mm3 Nucleated RBC % (0.0-0.2) % Sodium Potassium Chloride Carbon Dioxide Anion Gap BUN Creatinine Estim Creat Clear Calc 91 Estimated GFR Cancelled > 60 Glucose Cancelled 403 H POC Capillary Glucose (65-105) mg/dl Hemoglobin A1c Calcium Cancelled Phosphorus (2.5-4.5) mg/dL Magnesium (1.6-2.3) mg/dL Total Bilirubin AST ALT Alkaline Phosphatase Total Protein Albumin Beta-Hydroxybutyrate/Acetoacetate (0.02-0.27) mmol/L Urine Color Urine Appearance Urine pH Ur Specific [place]cker Urine Protein Urine Glucose (UA) Urine Ketones Ur Blood (Man) Urine Nitrate Urine Bilirubin Urine Urobilinogen Leukocyte Esterase Rfl 10/13/24 10/13/24 10/13/24 Range/Units 18:31 18:31 18:31 WBC (4.5-10.0) K/mm3 RBC (4.6-6.20) M/mm3 Hgb (14.0-18.0) g/dL Hct (42.0-52.0) % MCV (80-100) fl MCH (26-34) pg MCHC (32-36) g/dl RDW (11.5-14.5) % Plt Count (150-375) k/mm3 MPV (7.4-10.4) fl Immature Gran % (Auto) (0-0.5) % Neut % (Auto) (45.5-73.1) % Lymph % (Auto) (18.3-44.2) % [place] % (Auto) (2.6-8.5) % Eos % (Auto) (0-4.4) % Baso % (Auto) (0.2-1.2) % Lymph # (Auto) (0.9-3.2) K/mm3 [place] # (Auto) (0.1-0.6) K/mm3 Eos # (Auto) (0-0.3) K/mm3 Baso # (Auto) (0.0-0.1) K/mm3 Abs Immat Gran (auto) (0.00-0.031) K/mm3 Absolute Neuts (auto) (1.3-6.7) K/mm3 Absolute Nucleated RBC (0.0-0.012) K/mm3 Nucleated RBC % (0.0-0.2) % Sodium Potassium Chloride Carbon Dioxide Anion Gap BUN Creatinine Estim Creat Clear Calc Estimated GFR Glucose POC Capillary Glucose (65-105) mg/dl Hemoglobin A1c Calcium 9.2 Phosphorus 3.8 (2.5-4.5) mg/dL Magnesium 1.8 (1.6-2.3) mg/dL Total Bilirubin Cancelled 0.8 AST Cancelled 27 ALT Cancelled Alkaline Phosphatase Total Protein Albumin Beta-Hydroxybutyrate/Acetoacetate (0.02-0.27) mmol/L Urine Color Urine Appearance Urine pH Ur Specific [place]cker Urine Protein Urine Glucose (UA) Urine Ketones Ur Blood (Man) Urine Nitrate Urine Bilirubin Urine Urobilinogen Leukocyte Esterase Rfl 10/13/24 10/13/24 10/13/24 Range/Units 18:31 18:31 18:31 WBC (4.5-10.0) K/mm3 RBC (4.6-6.20) M/mm3 Hgb (14.0-18.0) g/dL Hct (42.0-52.0) % MCV (80-100) fl MCH (26-34) pg MCHC (32-36) g/dl RDW (11.5-14.5) % Plt Count (150-375) k/mm3 MPV (7.4-10.4) fl Immature Gran % (Auto) (0-0.5) % Neut % (Auto) (45.5-73.1) % Lymph % (Auto) (18.3-44.2) % [place] % (Auto) (2.6-8.5) % Eos % (Auto) (0-4.4) % Baso % (Auto) (0.2-1.2) % Lymph # (Auto) (0.9-3.2) K/mm3 [place] # (Auto) (0.1-0.6) K/mm3 Eos # (Auto) (0-0.3) K/mm3 Baso # (Auto) (0.0-0.1) K/mm3 Abs Immat Gran (auto) (0.00-0.031) K/mm3 Absolute Neuts (auto) (1.3-6.7) K/mm3 Absolute Nucleated RBC (0.0-0.012) K/mm3 Nucleated RBC % (0.0-0.2) % Sodium Potassium Chloride Carbon Dioxide Anion Gap BUN Creatinine Estim Creat Clear Calc Estimated GFR Glucose POC Capillary Glucose (65-105) mg/dl Hemoglobin A1c Calcium Phosphorus (2.5-4.5) mg/dL Magnesium (1.6-2.3) mg/dL Total Bilirubin AST ALT 22 Alkaline Phosphatase Cancelled 103 Total Protein Cancelled 7.0 Albumin Cancelled Beta-Hydroxybutyrate/Acetoacetate (0.02-0.27) mmol/L Urine Color Urine Appearance Urine pH Ur Specific [place]cker Urine Protein Urine Glucose (UA) Urine Ketones Ur Blood (Man) Urine Nitrate Urine Bilirubin Urine Urobilinogen Leukocyte Esterase Rfl 10/13/24 10/13/24 10/13/24 Range/Units 18:31 18:37 19:36 WBC (4.5-10.0) K/mm3 RBC (4.6-6.20) M/mm3 Hgb (14.0-18.0) g/dL Hct (42.0-52.0) % MCV (80-100) fl MCH (26-34) pg MCHC (32-36) g/dl RDW (11.5-14.5) % Plt Count (150-375) k/mm3 MPV (7.4-10.4) fl Immature Gran % (Auto) (0-0.5) % Neut % (Auto) (45.5-73.1) % Lymph % (Auto) (18.3-44.2) % [place] % (Auto) (2.6-8.5) % Eos % (Auto) (0-4.4) % Baso % (Auto) (0.2-1.2) % Lymph # (Auto) (0.9-3.2) K/mm3 [place] # (Auto) (0.1-0.6) K/mm3 Eos # (Auto) (0-0.3) K/mm3 Baso # (Auto) (0.0-0.1) K/mm3 Abs Immat Gran (auto) (0.00-0.031) K/mm3 Absolute Neuts (auto) (1.3-6.7) K/mm3 Absolute Nucleated RBC (0.0-0.012) K/mm3 Nucleated RBC % (0.0-0.2) % Sodium Potassium Chloride Carbon Dioxide Anion Gap BUN Creatinine Estim Creat Clear Calc Estimated GFR Glucose POC Capillary Glucose 441 H Pending (65-105) mg/dl Hemoglobin A1c Calcium Phosphorus (2.5-4.5) mg/dL Magnesium (1.6-2.3) mg/dL Total Bilirubin AST ALT Alkaline Phosphatase Total Protein Albumin 4.3 Beta-Hydroxybutyrate/Acetoacetate (0.02-0.27) mmol/L Urine Color Pending Urine Appearance Pending Urine pH Pending Ur Specific Decker Pending Urine Protein Pending Urine Glucose (UA) Pending Urine Ketones Pending Ur Blood (Man) Pending Urine Nitrate Pending Urine Bilirubin Pending Urine Urobilinogen Pending Leukocyte Esterase Rfl Pending <Cherry J. Carbajal, PA-C - Last Filed: 10/13/24 18:10> Lab Results 10/13/24 10/13/24 10/13/24 Range/Units 18:30 18:31 18:31 WBC 8.4 (4.5-10.0) K/mm3 RBC 5.36 (4.6-6.20) M/mm3 Hgb 15.3 (14.0-18.0) g/dL Hct 46.6 (42.0-52.0) % MCV 86.9 (80-100) fl MCH 28.5 (26-34) pg MCHC 32.8 (32-36) g/dl RDW 12.6 (11.5-14.5) % Plt Count 230 (150-375) k/mm3 MPV 11.8 H (7.4-10.4) fl Immature Gran % (Auto) 0.2 (0-0.5) % Neut % (Auto) 64.8 (45.5-73.1) % Lymph % (Auto) 22.3 (18.3-44.2) % [place] % (Auto) 10.5 H (2.6-8.5) % Eos % (Auto) 1.6 (0-4.4) % Baso % (Auto) 0.6 (0.2-1.2) % Lymph # (Auto) 1.87 (0.9-3.2) K/mm3 [place] # (Auto) 0.9 H (0.1-0.6) K/mm3 Eos # (Auto) 0.1 (0-0.3) K/mm3 Baso # (Auto) 0.1 (0.0-0.1) K/mm3 Abs Immat Gran (auto) 0.02 (0.00-0.031) K/mm3 Absolute Neuts (auto) 5.4 (1.3-6.7) K/mm3 Absolute Nucleated RBC 0.000 (0.0-0.012) K/mm3 Nucleated RBC % 0.0 (0.0-0.2) % Sodium Cancelled 132 L Potassium Cancelled Chloride Carbon Dioxide Anion Gap BUN Creatinine Estim Creat Clear Calc Estimated GFR Glucose POC Capillary Glucose (65-105) mg/dl Hemoglobin A1c Pending Calcium Phosphorus (2.5-4.5) mg/dL Magnesium (1.6-2.3) mg/dL Total Bilirubin AST ALT Alkaline Phosphatase Total Protein Albumin Beta-Hydroxybutyrate/Acetoacetate 3.06 H (0.02-0.27) mmol/L Urine Color Urine Appearance Urine pH Ur Specific [place]cker Urine Protein Urine Glucose (UA) Urine Ketones Ur Blood (Man) Urine Nitrate Urine Bilirubin Urine Urobilinogen Leukocyte Esterase Rfl 10/13/24 10/13/24 10/13/24 Range/Units 18:31 18:31 18:31 WBC (4.5-10.0) K/mm3 RBC (4.6-6.20) M/mm3 Hgb (14.0-18.0) g/dL Hct (42.0-52.0) % MCV (80-100) fl MCH (26-34) pg MCHC (32-36) g/dl RDW (11.5-14.5) % Plt Count (150-375) k/mm3 MPV (7.4-10.4) fl Immature Gran % (Auto) (0-0.5) % Neut % (Auto) (45.5-73.1) % Lymph % (Auto) (18.3-44.2) % [place] % (Auto) (2.6-8.5) % Eos % (Auto) (0-4.4) % Baso % (Auto) (0.2-1.2) % Lymph # (Auto) (0.9-3.2) K/mm3 [place] # (Auto) (0.1-0.6) K/mm3 Eos # (Auto) (0-0.3) K/mm3 Baso # (Auto) (0.0-0.1) K/mm3 Abs Immat Gran (auto) (0.00-0.031) K/mm3 Absolute Neuts (auto) (1.3-6.7) K/mm3 Absolute Nucleated RBC (0.0-0.012) K/mm3 Nucleated RBC % (0.0-0.2) % Sodium Potassium 4.6 Chloride Cancelled 95 L Carbon Dioxide Cancelled 23 Anion Gap Cancelled BUN Creatinine Estim Creat Clear Calc Estimated GFR Glucose POC Capillary Glucose (65-105) mg/dl Hemoglobin A1c Calcium Phosphorus (2.5-4.5) mg/dL Magnesium (1.6-2.3) mg/dL Total Bilirubin AST ALT Alkaline Phosphatase Total Protein Albumin Beta-Hydroxybutyrate/Acetoacetate (0.02-0.27) mmol/L Urine Color Urine Appearance Urine pH Ur Specific [place]cker Urine Protein Urine Glucose (UA) Urine Ketones Ur Blood (Man) Urine Nitrate Urine Bilirubin Urine Urobilinogen Leukocyte Esterase Rfl 10/13/24 10/13/24 10/13/24 Range/Units 18:31 18:31 18:31 WBC (4.5-10.0) K/mm3 RBC (4.6-6.20) M/mm3 Hgb (14.0-18.0) g/dL Hct (42.0-52.0) % MCV (80-100) fl MCH (26-34) pg MCHC (32-36) g/dl RDW (11.5-14.5) % Plt Count (150-375) k/mm3 MPV (7.4-10.4) fl Immature Gran % (Auto) (0-0.5) % Neut % (Auto) (45.5-73.1) % Lymph % (Auto) (18.3-44.2) % [place] % (Auto) (2.6-8.5) % Eos % (Auto) (0-4.4) % Baso % (Auto) (0.2-1.2) % Lymph # (Auto) (0.9-3.2) K/mm3 [place] # (Auto) (0.1-0.6) K/mm3 Eos # (Auto) (0-0.3) K/mm3 Baso # (Auto) (0.0-0.1) K/mm3 Abs Immat Gran (auto) (0.00-0.031) K/mm3 Absolute Neuts (auto) (1.3-6.7) K/mm3 Absolute Nucleated RBC (0.0-0.012) K/mm3 Nucleated RBC % (0.0-0.2) % Sodium Potassium Chloride Carbon Dioxide Anion Gap 14 H BUN Cancelled 29 H D Creatinine Cancelled 1.13 Estim Creat Clear Calc Cancelled Estimated GFR Glucose POC Capillary Glucose (65-105) mg/dl Hemoglobin A1c Calcium Phosphorus (2.5-4.5) mg/dL Magnesium (1.6-2.3) mg/dL Total Bilirubin AST ALT Alkaline Phosphatase Total Protein Albumin Beta-Hydroxybutyrate/Acetoacetate (0.02-0.27) mmol/L Urine Color Urine Appearance Urine pH Ur Specific [place]cker Urine Protein Urine Glucose (UA) Urine Ketones Ur Blood (Man) Urine Nitrate Urine Bilirubin Urine Urobilinogen Leukocyte Esterase Rfl 10/13/24 10/13/24 10/13/24 Range/Units 18:31 18:31 18:31 WBC (4.5-10.0) K/mm3 RBC (4.6-6.20) M/mm3 Hgb (14.0-18.0) g/dL Hct (42.0-52.0) % MCV (80-100) fl MCH (26-34) pg MCHC (32-36) g/dl RDW (11.5-14.5) % Plt Count (150-375) k/mm3 MPV (7.4-10.4) fl Immature Gran % (Auto) (0-0.5) % Neut % (Auto) (45.5-73.1) % Lymph % (Auto) (18.3-44.2) % [place] % (Auto) (2.6-8.5) % Eos % (Auto) (0-4.4) % Baso % (Auto) (0.2-1.2) % Lymph # (Auto) (0.9-3.2) K/mm3 [place] # (Auto) (0.1-0.6) K/mm3 Eos # (Auto) (0-0.3) K/mm3 Baso # (Auto) (0.0-0.1) K/mm3 Abs Immat Gran (auto) (0.00-0.031) K/mm3 Absolute Neuts (auto) (1.3-6.7) K/mm3 Absolute Nucleated RBC (0.0-0.012) K/mm3 Nucleated RBC % (0.0-0.2) % Sodium Potassium Chloride Carbon Dioxide Anion Gap BUN Creatinine Estim Creat Clear Calc 91 Estimated GFR Cancelled > 60 Glucose Cancelled 403 H POC Capillary Glucose (65-105) mg/dl Hemoglobin A1c Calcium Cancelled Phosphorus (2.5-4.5) mg/dL Magnesium (1.6-2.3) mg/dL Total Bilirubin AST ALT Alkaline Phosphatase Total Protein Albumin Beta-Hydroxybutyrate/Acetoacetate (0.02-0.27) mmol/L Urine Color Urine Appearance Urine pH Ur Specific [place]cker Urine Protein Urine Glucose (UA) Urine Ketones Ur Blood (Man) Urine Nitrate Urine Bilirubin Urine Urobilinogen Leukocyte Esterase Rfl 10/13/24 10/13/24 10/13/24 Range/Units 18:31 18:31 18:31 WBC (4.5-10.0) K/mm3 RBC (4.6-6.20) M/mm3 Hgb (14.0-18.0) g/dL Hct (42.0-52.0) % MCV (80-100) fl MCH (26-34) pg MCHC (32-36) g/dl RDW (11.5-14.5) % Plt Count (150-375) k/mm3 MPV (7.4-10.4) fl Immature Gran % (Auto) (0-0.5) % Neut % (Auto) (45.5-73.1) % Lymph % (Auto) (18.3-44.2) % [place] % (Auto) (2.6-8.5) % Eos % (Auto) (0-4.4) % Baso % (Auto) (0.2-1.2) % Lymph # (Auto) (0.9-3.2) K/mm3 [place] # (Auto) (0.1-0.6) K/mm3 Eos # (Auto) (0-0.3) K/mm3 Baso # (Auto) (0.0-0.1) K/mm3 Abs Immat Gran (auto) (0.00-0.031) K/mm3 Absolute Neuts (auto) (1.3-6.7) K/mm3 Absolute Nucleated RBC (0.0-0.012) K/mm3 Nucleated RBC % (0.0-0.2) % Sodium Potassium Chloride Carbon Dioxide Anion Gap BUN Creatinine Estim Creat Clear Calc Estimated GFR Glucose POC Capillary Glucose (65-105) mg/dl Hemoglobin A1c Calcium 9.2 Phosphorus 3.8 (2.5-4.5) mg/dL Magnesium 1.8 (1.6-2.3) mg/dL Total Bilirubin Cancelled 0.8 AST Cancelled 27 ALT Cancelled Alkaline Phosphatase Total Protein Albumin Beta-Hydroxybutyrate/Acetoacetate (0.02-0.27) mmol/L Urine Color Urine Appearance Urine pH Ur Specific Decker Urine Protein Urine Glucose (UA) Urine Ketones Ur Blood (Man) Urine Nitrate Urine Bilirubin Urine Urobilinogen Leukocyte Esterase Rfl 10/13/24 10/13/24 10/13/24 Range/Units 18:31 18:31 18:31 WBC (4.5-10.0) K/mm3 RBC (4.6-6.20) M/mm3 Hgb (14.0-18.0) g/dL Hct (42.0-52.0) % MCV (80-100) fl MCH (26-34) pg MCHC (32-36) g/dl RDW (11.5-14.5) % Plt Count (150-375) k/mm3 MPV (7.4-10.4) fl Immature Gran % (Auto) (0-0.5) % Neut % (Auto) (45.5-73.1) % Lymph % (Auto) (18.3-44.2) % [place] % (Auto) (2.6-8.5) % Eos % (Auto) (0-4.4) % Baso % (Auto) (0.2-1.2) % Lymph # (Auto) (0.9-3.2) K/mm3 [place] # (Auto) (0.1-0.6) K/mm3 Eos # (Auto) (0-0.3) K/mm3 Baso # (Auto) (0.0-0.1) K/mm3 Abs Immat Gran (auto) (0.00-0.031) K/mm3 Absolute Neuts (auto) (1.3-6.7) K/mm3 Absolute Nucleated RBC (0.0-0.012) K/mm3 Nucleated RBC % (0.0-0.2) % Sodium Potassium Chloride Carbon Dioxide Anion Gap BUN Creatinine Estim Creat Clear Calc Estimated GFR Glucose POC Capillary Glucose (65-105) mg/dl Hemoglobin A1c Calcium Phosphorus (2.5-4.5) mg/dL Magnesium (1.6-2.3) mg/dL Total Bilirubin AST ALT 22 Alkaline Phosphatase Cancelled 103 Total Protein Cancelled 7.0 Albumin Cancelled Beta-Hydroxybutyrate/Acetoacetate (0.02-0.27) mmol/L Urine Color Urine Appearance Urine pH Ur Specific Decker Urine Protein Urine Glucose (UA) Urine Ketones Ur Blood (Man) Urine Nitrate Urine Bilirubin Urine Urobilinogen Leukocyte Esterase Rfl 10/13/24 10/13/24 10/13/24 Range/Units 18:31 18:37 19:36 WBC (4.5-10.0) K/mm3 RBC (4.6-6.20) M/mm3 Hgb (14.0-18.0) g/dL Hct (42.0-52.0) % MCV (80-100) fl MCH (26-34) pg MCHC (32-36) g/dl RDW (11.5-14.5) % Plt Count (150-375) k/mm3 MPV (7.4-10.4) fl Immature Gran % (Auto) (0-0.5) % Neut % (Auto) (45.5-73.1) % Lymph % (Auto) (18.3-44.2) % [place] % (Auto) (2.6-8.5) % Eos % (Auto) (0-4.4) % Baso % (Auto) (0.2-1.2) % Lymph # (Auto) (0.9-3.2) K/mm3 [place] # (Auto) (0.1-0.6) K/mm3 Eos # (Auto) (0-0.3) K/mm3 Baso # (Auto) (0.0-0.1) K/mm3 Abs Immat Gran (auto) (0.00-0.031) K/mm3 Absolute Neuts (auto) (1.3-6.7) K/mm3 Absolute Nucleated RBC (0.0-0.012) K/mm3 Nucleated RBC % (0.0-0.2) % Sodium Potassium Chloride Carbon Dioxide Anion Gap BUN Creatinine Estim Creat Clear Calc Estimated GFR Glucose POC Capillary Glucose 441 H Pending (65-105) mg/dl Hemoglobin A1c Calcium Phosphorus (2.5-4.5) mg/dL Magnesium (1.6-2.3) mg/dL Total Bilirubin AST ALT Alkaline Phosphatase Total Protein Albumin 4.3 Beta-Hydroxybutyrate/Acetoacetate (0.02-0.27) mmol/L Urine Color Pending Urine Appearance Pending Urine pH Pending Ur Specific [place]cker Pending Urine Protein Pending Urine Glucose (UA) Pending Urine Ketones Pending Ur Blood (Man) Pending Urine Nitrate Pending Urine Bilirubin Pending Urine Urobilinogen Pending Leukocyte Esterase Rfl Pending <Dada Carty MD - Last Filed: 10/13/24 19:50> ABG Data ABG results: 10/13/24 19:00 Puncture Site Left radial ABG pH 7.361 ABG pCO2 39.1 ABG pO2 70.8 L ABG PO2/FiO2 Ratio 3.37 ABG HCO3 21.6 L ABG O2 Saturation 93.7 L ABG O2 Content 20.7 ABG Base Excess -3.4 A-a Gradient 32.1 Oxyhemoglobin 91.9 Total Hemoglobin 16.0 O2 Delivery Device Room air O2 Liters/Min Not Reportable FiO2 21 <Cherry Carbajal PA-C - Last Filed: 10/13/24 18:10> 10/13/24 19:00 Puncture Site Left radial ABG pH 7.361 ABG pCO2 39.1 ABG pO2 70.8 L ABG PO2/FiO2 Ratio 3.37 ABG HCO3 21.6 L ABG O2 Saturation 93.7 L ABG O2 Content 20.7 ABG Base Excess -3.4 A-a Gradient 32.1 Oxyhemoglobin 91.9 Total Hemoglobin 16.0 O2 Delivery Device Room air O2 Liters/Min Not Reportable FiO2 21 <Dada Carty MD - Last Filed: 10/13/24 19:50> Critical Care Time Critical Care Time Critical Care Time: Yes <Dada Carty MD - Last Filed: 10/13/24 19:50> Total Critical Care Time: 30 <Dada Carty MD - Last Filed: 10/13/24 19:50> Discharge Plan Discharge Clinical Impression: Acute hyperglycemia, Ketosis <Cherry Carbajal PA-C - Last Filed: 10/13/24 18:10> Patient Disposition: Still a Patient <KATE Garrido Last Filed: 10/13/24 18:10> Condition: Stable <Cherry Carbajal PA-C - Last Filed: 10/13/24 18:10> Patient Language: Frisian <Cherry Carbajal PA-C - Last Filed: 10/13/24 18:10> Prescriptions: No Action sulfamethoxazole-trimethoprim [Bactrim DS] 800-160 mg tablet 1 tablet PO Q12H 7 Days Qty: 14 0RF <Cherry Carbajal PA-C - Last Filed: 10/13/24 18:10> Follow-up/Referrals: UNKNOWN,DOCTOR [Primary Care Provider] - <Cherry Carbajal PA-C - Last Filed: 10/13/24 18:10> Time of Disposition: 19:50 <Cherry Carbajal PA-C - Last Filed: 10/13/24 18:10> 19:50 <Dada Carty MD - Last Filed: 10/13/24 19:50>
[2024-10-13 18:37] LABS: Basophils Absolute Auto 0.1 K/mm3 (0.0-0.1); Basophils Percent Auto 0.6 % (0.2-1.2); Eosinophils Absolute Auto 0.1 K/mm3 (0-0.3); Eosinophils Percent Auto 1.6 % (0-4.4); Hematocrit 46.6 % (42.0-52.0); Hemoglobin 15.3 g/dL (14.0-18.0); Immature Granulocyte Absolute 0.02 K/mm3 (0.00-0.031); Immature Granulocyte Percent A 0.2 % (0-0.5); Lymphocytes Absolute Auto 1.87 K/mm3 (0.9-3.2); Lymphocytes Percent Auto 22.3 % (18.3-44.2); Mean Corpuscular HGB Conc 32.8 g/dl (32-36); Mean Corpuscular Hemoglobin 28.5 pg (26-34); Mean Corpuscular Volume 86.9 fl (80-100); Mean Platelet Volume 11.8 fl (7.4-10.4); Monocytes Absolute Auto 0.9 K/mm3 (0.1-0.6); Monocytes Percent Auto 10.5 % (2.6-8.5); Neutrophils Absolute Auto 5.4 K/mm3 (1.3-6.7); Neutrophils Percent Auto 64.8 % (45.5-73.1); Platelet Count Result 230 k/mm3 (150-375); Red Blood Count 5.36 M/mm3 (4.6-6.20); Red Cell Distribution Width 12.6 % (11.5-14.5); White Blood Count 8.4 K/mm3 (4.5-10.0)
[2024-10-13 18:44] LABS: Glucose Point of Care 441 mg/dl (65-105)
[2024-10-13] MEDS: SODIUM CHLORIDE 0.9% IV 1,000 ML 999 ML IV CONT ×3 (18:47→20:17)
--- OUTSIDE RECORDS SUMMARY | 2024-10-13 19:00 | XMS_ITS | Clinical Summary ---
Author Organization [facility] Address [address] [place] [address] Phone Care Team Providers Care Investment Banking Analyst Name Role Phone Provider, None Primary Care [...] APPOINTMENT 4 Active Lancets (OneTouch Delica Plus [id number]) Misc USE 1 TO CHECK GLUCOSE TWICE [...] Description 08/12/2024 8:45 AM CDT Office Visit [facility] [address] [place] [phone] Toni Haqeu MD Hematuria, unspecified type (Primary Dx); Prostate [...] on file Legal Sex Male 1:30 PM OUTSIDE CONTRACTOR SALES Gender Identity Not on file Sexual Orientation [...] PHYSICIAN GROUP UROLOGY [address] [place] [address] Toni Haque MD [address] [place] [address] Health Maintenance Due Date Last [...] 4.34(H) <4.00 ng/mL 08/12/2024 12:08 PM CDT [facility] Blood Venipuncture / Unknown 08/12/2024 10:30 AM CDT 08/12/2024 11:18 AM CDT Narrative [facility] - 08/12/2024 12:08 PM CDT The ALINITY Total PSA assay is a Chemiluminescent Microparticle Immunoassay (CMIA) for the quantitative determination of total PSA (both free PSA and PSA complexed to [id number]) in human serum. Total PSA values obtained with different assay methods, including Leggett PSA assays, cannot be used interchangeably. us Toni Haque MD CHEMISTRY ORDERABLES Final Resul t [facility] [address] [place] [address] * (ABNORMAL) POCT UA AUTOMATED W/O MICRO [...] Result from Last 3 Months Insurance [place]ICAID [place] Care Teams Investment Banking Analyst Relationship Specialty Start Date End Date Provider, None [place] PCP - General 08/11/24 Provider, None [place] 08/12/24 Toni Haque MD [address] [facility] [address] [place] [phone] Consulting Physician Urology 08/12/24
--- OUTSIDE RECORDS SUMMARY | 2024-10-13 19:00 | XMS_ITS | Referral Summary ---
Author Organization [facility] [address] [place] [address] [place] [address] Care Team Providers Care Air Quality Manager Name Role Phone Referral, Self Primary Care Provider Unavailabl e Encounters Date Type Department Care Team Description 07/22/2024 2:16 PM MACHINE FORMER - 07/22/2024 11:59 PM MACHINE FORMER Hospital Encounter [facility] [address] [place] [address] Discharge Disposition: Discharge to home or self care 07/22/2024 1:20 PM MACHINE FORMER Office Visit [facility] Infectious Diseases [address] [place] [address] Yazmin Loco NP Other chronic [...] 10/14/2023 Assessment & Plan (07/27/2024 12:09 PM MACHINE FORMER): -Patient presents to clinic for a follow [...] Comments Blood Pressure 109/70 07/22/2024 1:09 PM MACHINE FORMER Pulse 93 07/22/2024 1:09 PM MACHINE FORMER Temperature 36.8 C (98.3 F) 07/22/2024 1:09 PM MACHINE FORMER Respiratory Rate 18 03/04/2024 1:14 PM CDT Oxygen Saturation 93% 07/22/2024 1:09 PM MACHINE FORMER Inhaled Oxygen Concentration - - Weight 136.9 kg (301 lb 14.4 oz) 07/22/2024 1:09 PM MACHINE FORMER Height 192 cm (6' 3.59 ) 07/22/2024 1:09 PM MACHINE FORMER Body Mass Index 37.15 07/22/2024 1:09 PM MACHINE FORMER Plan of Treatment Not on file Procedures Procedure Name Priority Date/Time Associated Diagnosis Comments EGFR Routine 07/22/2024 1:29 PM MACHINE FORMER Other chronic osteomyelitis of left tibia (HCC) DIFFERENTIAL AUTO Routine 07/22/2024 1:2 9 PM MACHINE FORMER Other chronic osteomyelitis of left tibia (HCC) GLUCOSE, RANDOM (OUTREACH) Routine 07/22/2024 1:29 PM MACHINE FORMER Other chronic osteomyelitis of left tibia (HCC) COMPREHENSIVE METABOLIC PANEL WITHOUT GLUCOSE (OUTREACH) Routine 07/22/2024 1:29 PM MACHINE FORMER Other chronic osteomyelitis of left tibia (HCC) CBC WITH AUTO DIFFERENTIAL Routine 07/22/2024 1:29 PM MACHINE FORMER Other chronic osteomyelitis of left tibia (HCC) COMPREHENSIVE METABOLIC PANEL (OUTREACH) Routine 07/22/2024 1:29 PM MACHINE FORMER Other chronic osteomyelitis of left tibia (HCC) from Last 3 Months Results * (ABNORMAL) Glucose, random (Outreach) (07/22/2024 1:29 PM MACHINE FORMER) Glucose 347(H) 70 - 199 mg/dL Comment: [...] last revised 2022. Blood 07/22/2024 1:29 PM MACHINE FORMER 07/22/2024 2:35 PM MACHINE FORMER Yazmin Loco NP LAB BLOOD ORDERABLES Final Result [facility] [address] [facility] Department [place] [address] * eGFR (07/22/2024 1:29 PM MACHINE FORMER) eGFR 68 >=60 mL/min/1. 73 m2 Comment: [...] last reviewed 2021. Blood 07/22/2024 1:29 PM MACHINE FORMER 07/22/2024 2:50 PM MACHINE FORMER us Yazmin Loco DISPUTE SPECIALIST LAB BLOOD ORDERABLES Final Result [facility] [address] [facility] Department [place] [address] * (ABNORMAL) Differential, auto (07/22/2024 1:29 PM MACHINE FORMER) Neutrophil abs 5.9 1.5 - 6.5 K/cumm Imm gran abs 0.0 0.0 - 0.1 K/cumm [facility] Lymphocyte abs 2.4 0.8 - 3.3 K/cumm [facility] Monocyte abs 1.0(H) 0.2 - 0.8 K/cumm [facility] Eosinophil abs 0.0 0.0 - 0.5 K/cumm [facility] Basophil abs 0.1 0.0 - 0.1 K/cumm [facility] Neutrophil pct 63.3 % [facility] Comment: Interpretive Data Percent cell count reference ranges are not reported, since discordance with absolute values may lead to misinterpretation of CBC data. Current Interpretive Data was last revised on 2017. Imm gran pct 0.3 % [facility] Comment: Interpretive Data Percent cell count reference ranges are not reported, since discordance with absolute values may lead to misinterpretation of CBC data. Current Interpretive Data was last revised on 2017. Lymphocyte pct 25.3 % [facility] Comment: Interpretive Data Percent cell count reference ranges are not reported, since discordance with absolute values may lead to misinterpretation of CBC data. Current Interpretive Data was last revised on 2017. Monocyte pct 10.2 % [facility] Comment: Interpretive Data Percent cell count reference ranges are not reported, since discordance with absolute values may lead to misinterpretation of CBC data. Current Interpretive Data was last revised on 2017. Eosinophil pct 0.4 % [facility] Comment: Interpretive Data Percent cell count reference ranges are not reported, since discordance with absolute values may lead to misinterpretation of CBC data. Current Interpretive Data was last revised on 2017. Basophil pct 0.5 % [facility] Comment: Interpretive Data Percent cell count reference ranges are not reported, since discordance with absolute values may lead to misinterpretation of CBC data. Current Interpretive Data was last revised on 2017. Blood 07/22/2024 1:29 PM MACHINE FORMER 07/22/2024 2:35 PM MACHINE FORMER Yazmin Loco DISPUTE SPECIALIST LAB BLOOD ORDERABLES Final Result [facility] [address] [facility] Department [place] [address] * Comprehensive metabolic panel, without glucose (Outreach) (07/22/2024 1:29 PM MACHINE FORMER) Sodium 140 135 - 145 mmol/L Potassium, pl 4.6 3.3 - 4.9 mmol/L [facility] Chloride 99 97 - 110 mmol/L [facility] CO2 28 22 - 32 mmol/L [facility] Anion gap 13 2 - 15 mmol/L [facility] BUN 16 6 - 25 mg/dL [facility] Creatinine 1.25 0.80 - 1.30 mg/dL [facility] Calcium 9.6 8.5 - 10.3 mg/dL [facility] Protein, pl 7.7 6.5 - 8.5 g/dL [facility] Albumin 4.4 3.5 - 5.0 g/dL [facility] Bilirubin, total 1.0 0.1 - 1.2 mg/dL [facility] Alk phos 109 40 - 130 Units/L [facility] AST 17 10 - 50 Units/L [facility] ALT 28 7 - 55 Units/L [facility] Blood 07/22/2024 1:29 PM MACHINE FORMER 07/22/2024 2:35 PM MACHINE FORMER us Yazmin Loco NP LAB BLOOD ORDERABLES Final Result [facility] [place] [address] * CBC with auto differential (07/22/2024 1:29 PM MACHINE FORMER) [facility] WBC 9.3 3.8 - 9.9 K/cumm Hgb 15.6 13.0 - 17.5 g/dL [facility] Hct 47.7 38.9 - 50.3 % [facility] Plt 230 150 - 400 K/cumm [facility] MPV 11.8 9.1 - 12.3 fL [facility] RBC 5.68 4.30 - 5.80 M/cumm [facility] MCV 84.0 81.3 - 96.4 fL [facility] MCH 27.5 27.1 - 33.3 pg [facility] MCHC 32.7 32.3 - 35.7 g/dL [facility] RDW CV 12.8 11.1 - 14.9 % [facility] RDW SD 39.1 35.7 - 48.1 fL [facility] NRBC abs 0.00 0.00 - 0.01 K/cumm [facility] Blood 07/22/2024 1:29 PM MACHINE FORMER 07/22/2024 2:35 PM MACHINE FORMER us Yazmin Loco NP LAB BLOOD ORDERABLES Final Result [facility] [address] [facility] [place] [address] from Last 3 Months Insurance [facility] Care Teams Air Quality Manager Relationship Specialty Start Date End Date Referral, Self PCP - General 10/09/23
--- OUTSIDE RECORDS SUMMARY | 2024-10-13 19:00 | XMS_ITS | Clinical Summary ---
Author Organization [facility] Address [address] [place] [address] Care Team Providers Care Gem Setter Name Role Phone Referral, Self Primary Care [...] 10/14/2023 Assessment & Plan (07/27/2024 12:09 PM SUPERINTENDENT METERS): -Patient presents to clinic for a follow [...] Department Care Team Description 07/22/2024 2:16 PM SUPERINTENDENT METERS - 07/22/2024 11:59 PM SUPERINTENDENT METERS Hospital Encounter [facility] [address] [place] [address] Discharge Disposition: Discharge to home or self care 07/22/2024 1:20 PM SUPERINTENDENT METERS Office Visit [facility] Infectious Diseases [address] [place] [phone] Yazmin Loco NP Other chronic osteomyelitis of [...] Comments Blood Pressure 109/70 07/22/2024 1:09 PM SUPERINTENDENT METERS Pulse 93 07/22/2024 1:09 PM SUPERINTENDENT METERS Temperature 36.8 C (98.3 F) 07/22/2024 1:09 PM SUPERINTENDENT METERS Respiratory Rate 18 03/04/2024 1:14 PM CDT Oxygen Saturation 93% 07/22/2024 1:09 PM SUPERINTENDENT METERS Inhaled Oxygen Concentration - - Weight 136.9 kg (301 lb 14.4 oz) 07/22/2024 1:09 PM SUPERINTENDENT METERS Height 192 cm (6' 3.59 ) 07/22/2024 1:09 PM SUPERINTENDENT METERS Body Mass Index 37.15 07/22/2024 1:09 PM SUPERINTENDENT METERS Plan of Treatment Health Maintenance Due Date [...] Diagnosis Comments EGFR Routine 07/22/2024 1:29 PM SUPERINTENDENT METERS Other chronic osteomyelitis of left tibia (HCC) DIFFERENTIAL AUTO Routine 07/22/2024 1:2 9 PM SUPERINTENDENT METERS Other chronic osteomyelitis of left tibia (HCC) GLUCOSE, RANDOM (OUTREACH) Routine 07/22/2024 1:29 PM SUPERINTENDENT METERS Other chronic osteomyelitis of left tibia (HCC) COMPREHENSIVE METABOLIC PANEL WITHOUT GLUCOSE (OUTREACH) Routine 07/22/2024 1:29 PM SUPERINTENDENT METERS Other chronic osteomyelitis of left tibia (HCC) CBC WITH AUTO DIFFERENTIAL Routine 07/22/2024 1:29 PM SUPERINTENDENT METERS Other chronic osteomyelitis of left tibia (HCC) COMPREHENSIVE METABOLIC PANEL (OUTREACH) Routine 07/22/2024 1:29 PM SUPERINTENDENT METERS Other chronic osteomyelitis of left tibia (HCC) from Last 3 Months Results * (ABNORMAL) Glucose, random (Outreach) (07/22/2024 1:29 PM SUPERINTENDENT METERS) Glucose 347(H) 70 - 199 mg/dL Comment: [...] last revised 2022. Blood 07/22/2024 1:29 PM SUPERINTENDENT METERS 07/22/2024 2:35 PM SUPERINTENDENT METERS Yazmin Loco NP LAB BLOOD ORDERABLES Final Result Performing Organization Address [facility] Co de Phone Number [facility] [place] [address] * eGFR (07/22/2024 1:29 PM SUPERINTENDENT METERS) Pathologist [facility] eGFR 68 >=60 mL/min/1. 73 m2 Comment: [...] last reviewed 2021. Blood 07/22/2024 1:29 PM SUPERINTENDENT METERS 07/22/2024 2:50 PM SUPERINTENDENT METERS Yazmin Loco NP LAB BLOOD ORDERABLES Final Result Performing Organization Address City/[facility] Co de Phone Number [facility] [place] [address] * (ABNORMAL) Differential, auto (07/22/2024 1:29 PM SUPERINTENDENT METERS) Pathologist [facility] Neutrophil abs 5.9 1.5 - 6.5 K/cumm Imm gran abs 0.0 0.0 - 0.1 K/cumm [facility] Lymphocyte abs 2.4 0.8 - 3.3 K/cumm [facility] Monocyte abs 1.0(H) 0.2 - 0.8 K/cumm [facility] Eosinophil abs 0.0 0.0 - 0.5 K/cumm [facility] Basophil abs 0.1 0.0 - 0.1 K/cumm [facility] Neutrophil pct 63.3 % [facility] Comment: Interpretive Data Percent cell count reference ranges are not reported, since discordance with absolute values may lead to misinterpretation of CBC data. Current Interpretive Data was last revised on 2017. Imm gran pct 0.3 % [facility] Comment: Interpretive Data Percent cell count reference ranges are not reported, since discordance with absolute values may lead to misinterpretation of CBC data. Current Interpretive Data was last revised on 2017. Lymphocyte pct 25.3 % [facility] Comment: Interpretive Data Percent cell count reference ranges are not reported, since discordance with absolute values may lead to misinterpretation of CBC data. Current Interpretive Data was last revised on 2017. Monocyte pct 10.2 % [facility] Comment: Interpretive Data Percent cell count reference ranges are not reported, since discordance with absolute values may lead to misinterpretation of CBC data. Current Interpretive Data was last revised on 2017. Eosinophil pct 0.4 % [facility] Comment: Interpretive Data Percent cell count reference ranges are not reported, since discordance with absolute values may lead to misinterpretation of CBC data. Current Interpretive Data was last revised on 2017. Basophil pct 0.5 % [facility] Comment: Interpretive Data Percent cell count reference ranges are not reported, since discordance with absolute values may lead to misinterpretation of CBC data. Current Interpretive Data was last revised on 2017. Blood 07/22/2024 1:29 PM SUPERINTENDENT METERS 07/22/2024 2:35 PM SUPERINTENDENT METERS us Yazmin Loco NP LAB BLOOD ORDERABLES Final Result [facility] [address] [facility] [place] [address] * Comprehensive metabolic panel, without glucose (Outreach) (07/22/2024 1:29 PM SUPERINTENDENT METERS) [facility] Sodium 140 135 - 145 mmol/L Potassium, pl 4.6 3.3 - 4.9 mmol/L [facility] Chloride 99 97 - 110 mmol/L [facility] CO2 28 22 - 32 mmol/L [facility] Anion gap 13 2 - 15 mmol/L [facility] BUN 16 6 - 25 mg/dL [facility] Creatinine 1.25 0.80 - 1.30 mg/dL [facility] Calcium 9.6 8.5 - 10.3 mg/dL [facility] Protein, pl 7.7 6.5 - 8.5 g/dL [facility] Albumin 4.4 3.5 - 5.0 g/dL [facility] Bilirubin, total 1.0 0.1 - 1.2 mg/dL [facility] Alk phos 109 40 - 130 Units/L [facility] AST 17 10 - 50 Units/L [facility] ALT 28 7 - 55 Units/L [facility] Blood 07/22/2024 1:29 PM SUPERINTENDENT METERS 07/22/2024 2:35 PM SUPERINTENDENT METERS Yazmin Loco NP LAB BLOOD ORDERABLES Final Result [facility] [address] [facility] [place] [address] * CBC with auto differential (07/22/2024 1:29 PM SUPERINTENDENT METERS) [facility] WBC 9.3 3.8 - 9.9 K/cumm Hgb 15.6 13.0 - 17.5 g/dL [facility] Hct 47.7 38.9 - 50.3 % [facility] Plt 230 150 - 400 K/cumm [facility] MPV 11.8 9.1 - 12.3 fL [facility] RBC 5.68 4.30 - 5.80 M/cumm [facility] MCV 84.0 81.3 - 96.4 fL [facility] MCH 27.5 27.1 - 33.3 pg [facility] MCHC 32.7 32.3 - 35.7 g/dL [facility] RDW CV 12.8 11.1 - 14.9 % [facility] RDW SD 39.1 35.7 - 48.1 fL [facility] NRBC abs 0.00 0.00 - 0.01 K/cumm [facility] Blood 07/22/2024 1:29 PM SUPERINTENDENT METERS 07/22/2024 2:35 PM SUPERINTENDENT METERS Yazmin Loco [employer] LAB BLOOD ORDERABLES Final Result [facility] [address] [facility] [place] [address] from Last 3 Months Insurance [facility] Care Teams Gem Setter Relationship Specialty Start Date End Date Referral, Self PCP - General 10/09/23
[2024-10-13 19:01] LABS: Beta-Hydroxybutyrate/Acetoacetate 3.06 mmol/L (0.02-0.27)
[2024-10-13 19:03] LABS: Alanine Aminotransferase 22 U/L (6-50); Albumin Level 4.3 g/dL (3.5-5.1); Alkaline Phosphatase 103 U/L (38-126); Anion Gap 14 mmol/L (4-12); Aspartate Amino Transferase 27 U/L (17-59); Bilirubin,Total 0.8 mg/dL (0.2-1.3); Blood Urea Nitrogen 29 mg/dL (9-20); Calcium 9.2 mg/dL (8.4-10.2); Carbon Dioxide 23 mmol/L (22-30); Chloride 95 mmol/L (98-107); Estimated CRCL calculation 91 ml/min; Estimated Glomerular Filt Rate > 60; Glucose 403 mg/dL (65-110); Magnesium 1.8 mg/dL (1.6-2.3); Phosphorus 3.8 mg/dL (2.5-4.5); Potassium 4.6 mmol/L (3.4-5.0); Sodium 132 mmol/L (137-145)
[2024-10-13 19:07] LABS: Alveolar/Arterial O2 Gradient 32.1 mmHg; Base Excess ABG -3.4 mEq/l (+/-2.0); Fractional Inspired Oxygen 21 %; HCO3 ABG 21.6 mEq/l (22.0-26.0); Oxygen Content ABG 20.7 %vol (16.0-22.0); Oxygen Saturation ABG 93.7 % (95.0-100.0); Oxyhemoglobin 91.9 % THb (90.0-100.0); PCO2 ABG 39.1 mmHg (35.0-45.0); PO2 ABG 70.8 mmHg (80.0-100.0); PO2 FiO2 Ratio Arterial Blood 3.37 %; pH ABG 7.361 (7.350-7.450)
[2024-10-13 19:08] LABS: Device ROOM AIR; Modified Allen's Test Pass; Site Drawn LEFT RADIAL
[2024-10-13 19:32] LABS: Add Urine Microscopic? NO; Appearance Urine Clear (Clear); Bilirubin Urine Negative (Negative); Blood Urine Negative (Negative); Color Urine Yellow (Yellow); Glucose Urine UA 3+ mg/dL (Negative); Ketones Urine 2+ mg/dL (Negative); Leukocyte Esterase Ur Negative LEU/UL (Negative); Nitrate Urine Negative (Negative); Protein Urine Negative (Negative); Specific Grav Ur 1.034 (1.001-1.035); Urobilinogen Urine 0.2 mg/dL (<2.0); pH Urine 5.5 (5.0-9.0)
[2024-10-13 19:41] LABS: Glucose Point of Care 364 mg/dl (65-105)
--- NOTE | 2024-10-13 20:00 | PC.NURSE ---
pt reports unable to urinate at this time. ordered IV fluids provided.
[2024-10-13] MEDS: INSULIN HUMAN REGULAR (*BKC) 100 UNITS in SODIUM CHLORIDE 0.9% IV 99 ML 12 UNITS IV CONT (20:17)
[2024-10-13 20:31] LABS: Glucose Point of Care 333 mg/dl (65-105)
[2024-10-13 21:05] LABS: Glucose Point of Care 276 mg/dl (65-105)
[2024-10-13 21:15] LABS: Hemoglobin A1C > 14.0 % (<5.7)
[2024-10-13 21:45] LABS: Anion Gap 12 mmol/L (4-12); Blood Urea Nitrogen 25 mg/dL (9-20); Calcium 8.5 mg/dL (8.4-10.2); Carbon Dioxide 22 mmol/L (22-30); Chloride 101 mmol/L (98-107); Estimated CRCL calculation 98 ml/min; Estimated Glomerular Filt Rate > 60; Glucose 275 mg/dL (65-110); Potassium 3.9 mmol/L (3.4-5.0); Sodium 135 mmol/L (137-145)
--- NOTE | 2024-10-13 21:48 | PC.NURSE ---
This patient, Carlitos Melendez, was admitted to Intensive Care Unit-8 at 2107. Patient/family oriented to hospital policies and general routines including ID bracelet, bed and alarms, visiting hours, pain management, procedures, bathroom and other care routines, personal items, smoking policy, room service/diet, and visiting hours. Information on how to activate the Rapid Response Team has been discussed. Patient/Family are encouraged to report perceived risks to care and to ask questions if they do not understand what they are told or what they should do.
--- NOTE | 2024-10-13 21:51 | PC.NURSE ---
Left message for early childhood special educator.
[2024-10-13] MEDS: KCL 20 MEQ/D5/0.45% SOD CHL 1,000 ML 150 ML IV CONT (22:08)
[2024-10-13] MEDS: METOPROLOL TARTRATE 25 MG TABLET PO (22:29)
[2024-10-13] MEDS: KCL 20MEQ/0.9% SOD CHL 1,000 ML 100 ML IV CONT (22:34)
--- NOTE | 2024-10-13 22:43 | PC.NURSE ---
Provided patient written information on DKA, A-fib, and Metoprolol.
[2024-10-13 22:57] LABS: MRSA (PCR) NOT DETECTED (NOT DETECTE)
[2024-10-13 23:11] LABS: Glucose Point of Care 98 mg/dl (65-105)
[2024-10-13 23:11] LABS: Glucose Point of Care 197 mg/dl (65-105)
[2024-10-14] VITALS (16 sets, daily range): BP systolic 93–120; BP diastolic 50–97; PULSE 68–135; RESP 14–22; TEMP 36.4–36.7; O2SAT 93–100
--- NOTE | 2024-10-14 | ECHO_ITS ---
"Patient Info Name: Carlitos Melendez Age: 54 years : 1970 Gender: Male Ht: 75 in Wt: 269 lbs BSA: 2.58 m2 HR: 102 bpm BP: 111 / 71 mmHg Heart Rhythm: Atrial Flutter, Tachycardia Technical Quality: Good Exam Date: 10/14/2024 11:08 AM Patient Status: I Admit Date: 10/13/2024 Exam Type: CA echo dop color flow w con Complete two-dimensional, color flow and Doppler transthoracic echocardiogram is performed with contrast to opacify the left ventricle and to improve the deliniation of the left ventricle endocardial borders. Lehr Attendant: Luz Elena Mcdonnell Attending Provider: Juan C Cano Contrast/Agitated Saline Contrast/Ag. Saline: Definity Amount: 3.00 ml Existing IV Access: Yes IV Access Condition: patent with no signs of infiltration Summary 1. Left ventricular chamber dimension is normal. 2. Left ventricular systolic function is mildly reduced, estimated at 40-45. 3. Right ventricular systolic function is normal. 4. Left atrial chamber dimension is mildly enlarged. 5. Right atrial chamber dimension is mildly enlarged. 6. No significant valvular disease. Left Ventricle Left ventricular chamber dimension is normal. Left ventricular systolic function is mildly reduced, estimated at 40-45. There is no increased left ventricular wall thickness. The left ventricular diastolic function is abnormal. Right Ventricle Right ventricular chamber dimension is normal. Right ventricular systolic function is normal. Left Atria Left atrial chamber dimension is mildly enlarged. Right Atria Right atrial chamber dimension is mildly enlarged. Atrial Septum Intact interatrial septum visualized by color flow imaging. Aortic Valve The aortic valve is trileaflet. There is no aortic valve stenosis. There is no aortic valve regurgitation. Pulmonic Valve The pulmonic valve is normal. There is mild pulmonic regurgitation. Mitral Valve There is trace mitral valve regurgitation. Tricuspid Valve There is trace tricuspid valve regurgitation. Pericardium/Pleural There is no pericardial effusion. Inferior Vena Cava Normal inferior vena cava with >50% collapse upon inspiration consistent with normal right atrial pressure, 3 mmHg. Aorta The aortic root size at the sinus of Valsalva is normal. Left Ventricular Outflow Tract Name Value Normal LVOT 2D LVOT Diameter 2.3 cm LVOT Doppler LVOT Peak Velocity 73 cm/s LVOT Peak Gradient 2 mmHg LVOT Mean Gradient 1 mmHg LVOT VTI 12 cm LVOT VTI/AV VTI Ratio 0.6 LVOT Stroke Volume 53 ml LVOT CO 13.4 l/min LVOT CI 5.2 l/min/m2 Pulmonic Valve Name Value Normal PV Doppler PV Peak Velocity 86 cm/s PV Peak Gradient 3 mmHg Mitral Valve Name Value Normal MV Diastolic Function MV E Peak Velocity 62 cm/s MV Decel Time (PW) 262 ms MV Annular TDI MV E/e' (Septal) 5.2 MV E/e' (Lateral) 4.1 MV E/e' (Average) 4.7 Tricuspid Valve Name Value Normal Estimated PAP/RSVP RA Pressure 3 mmHg <=5 TV Annular TDI TV Lateral Nataly s' Velocity 7.6 cm/s >=9.5 Aorta Name Value Normal Ascending Aorta Ao Root Diameter (MM) 3.3 cm Ao Root Diam Index (MM) 1.3 cm/m2 Aortic Valve Name Value Normal AV Doppler AV Peak Velocity 113 cm/s AV Peak Gradient 5 mmHg AV Mean Gradient 3 mmHg AV VTI 20 cm AV Area (Cont Eq VTI) 2.6 cm2 >=3.0 AV Area (Cont Eq Mati) 2.8 cm2 AV DI (Mati) 0.65 AV Regurgitation 2D LVOT Area 4.3 cm2 Ventricles Name Value Normal LV Dimensions 2D/MM IVS Diastolic Thickness (2D) 1.0 cm 0.6-1.0 LVID Diastole (2D) 4.8 cm 4.2-5.8 LVIW Diastolic Thickness (2D) 1.0 cm 0.6-1.0 LVID Systole (2D) 4.2 cm 2.5-4.0 LVOT Diameter 2.3 cm LV Mass (2D Cubed) 169.72 g 88.00-224.00 LV Mass Index (2D Cubed) 66 g/m2 49-115 Relative Wall Thickness (2D) 0.41 <=0.42 LV Fractional Shortening/Ejection Fraction 2D/MM LV Fractional Shortening (2D) 13 % 25-43 LV EF (2D Teichholz) 27 % LV Diastolic Volume (4C MOD) 134 ml LV EF (4C MOD) 43 % LV Diastolic Volume (2C MOD) 89 ml LV EF (2C MOD) 36 % LV Diastolic Volume (BP MOD) 113 ml 62-150 LV Diastolic Volume Index (BP MOD) 44 ml/m2 34-74 LV Systolic Volume (BP MOD) 69 ml 21-61 LV Systolic Volume Index (BP MOD) 27 ml/m2 11-31 LV EF (BP MOD) 39 % 52-72 LV Diastolic Length (4C) 8.7 cm LV Systolic Length (4C) 7.5 cm LV Stroke Volume (4C MOD) 58 ml RV Dimensions 2D/MM RVID Diastole (2D) 4.2 cm 2.1-3.5 Atria Name Value Normal LA Dimensions LA Dimension (MM) 3.7 cm 3.0-4.0 LA Volume (4C A-L) 66 ml LA Volume (BP A-L) 59 ml RA Dimensions RA Systolic Major [place] Length (4C) 5.5 cm 2.1-2.7 RA Area (4C) 22.4 cm2 <=18.0 Report Signatures [file] [id number]|2024-11-02 12:59:49|2024-11-02 12:59:49|PCCDE||||"11/02/24 DM Educator courtesy follow up call completed initial attempt 10/22 unsuccessful. Pt reports his numbers are in the mid 100's currently on 3 orals. Has seen DM Physician and states to attend DM education by them . FJ"
[2024-10-14 00:09] LABS: Glucose Point of Care 103 mg/dl (65-105)
--- NOTE | 2024-10-14 00:32 | P.HP_ITS ---
H&P: HPI History of Present Illness Date/Time: 10/14/24 00:32 Chief Complaint: High blood glucose Narrative: The patient is a 54-year-old male with a past medical history of chronic osteomyelitis and type 2 diabetes who visited the ER due to hyperglycemia. Pertinent ED labs: WBC 8.4, hemoglobin 15.3, platelet 230, sodium 132, potassium 3.9, chloride 95, bicarb 23, BUN 29, creatinine 1.13, glucose 403, anion gap 14 HBA1c greater than 14 Hydroxybutyrate: 3.06 UA positive for ketones ABG: PH 7.3, PO2 70.8, CO2 39.1, bicarb 21.6 Patient reports he had symptoms of polyuria and went to his PCP to check his blood sugar. At the office, his HbA1c is 11, compared to the previous one performed 6 months ago (8.9), and blood glucose levels were greater than 400, and he was advised to go to the nearby ED. Patient endorses medication compliance. Patient denies any symptoms other than polyuria, including chest pain, shortness of breath, or weakness. Patient treated with metformin and semaglutide as an outpatient. He reports that his diabetes was diagnosed 3 years ago, and he has never been on insulin. Patient denies any cardiac history, CVA, or cancer. The patient also denies smoking and only occasional alcoholism. Of note is that the patient has left leg osteomyelitis, for which he takes cephalexin and doxycycline, and he follows up with Infectious Disease at [facility]. The patient is currently admitted due to DKA and is currently on an insulin drip. The patient needs to be discharged with insulin since his HbA1C is greater than 10. Of note, the patient had AFib in ICU, which is a new diagnosis for him. Cardiology will be consulted in the morning. Will order echocardiogram and TSH. The patient was given metoprolol 25 mg p.o. x1. 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 Review of Systems Review of Systems: A 10 system review of systems was completed on the patient and is negative except for what is stated in the HPI. Nursing and ancillary documentation was reviewed. [facility] Past Medical History Medical History Hyperlipidemia Hypertension Diabetes Asthma Acid reflux Fatigue Deviated nasal septum Allergic rhinitis Family History Family History (Updated 10/13/24 @ 21:28 by Marlyn Rosaroi RN) Mother Asthma Hypertension Father Diabetes mellitus Social History Social History Smoking status: Never smoker Alcohol intake: current Drinks per week: 0 Substance use: never Do You Feel Safe in your Home?: Yes Lack of Transportation: No Lack of Food: Never True Current Housing: I Have Housing Concerned About Future Housing: No Difficulty Paying Gas/Electric Bills: No Difficulty Paying for Meds: No Currently Unemployed: No Education: High School Diploma/GED Difficulty w/ Childcare or Family Care: No Spiritual care concerns: No Meds Home Medications and Allergies Home Medications Medication Instructions Recorded Confirmed Type amlodipine 10 mg tablet 10 mg PO DAILY 10/13/24 10/13/24 History cephalexin 500 mg capsule 500 mg PO DAILY 10/13/24 10/13/24 History doxycycline monohydrate 100 mg 100 mg PO DAILY 10/13/24 10/13/24 History tablet fluoxetine 20 mg capsule 20 mg PO DAILY 10/13/24 10/13/24 History fluticasone propionate 50 1 spray intranasal DAILY 10/13/24 10/13/24 History mcg/actuation nasal spray,suspension lisinopril 20 mg tablet 20 mg PO DAILY 10/13/24 10/13/24 History metformin 500 mg tablet,extended 1,000 mg PO BID 10/13/24 10/13/24 History release 24 hr montelukast 10 mg tablet 10 mg PO DAILY 10/13/24 10/13/24 History risperidone 4 mg tablet 4 mg PO HS 10/13/24 10/13/24 History rosuvastatin 10 mg tablet 10 mg PO DAILY 10/13/24 10/13/24 History semaglutide 7 mg tablet (Rybelsus) 7 mg PO DAILY 10/13/24 10/13/24 History Allergies Allergy/AdvReac Type Severity Reaction Status Date / Time No Known Allergies Allergy Verified 10/13/24 16:57 Vital Signs Vital Signs - 24 hr 10/13/24 16:54 10/13/24 18:38 10/13/24 18:46 Temperature 98.2 F Pulse Rate 120 H 129 H Respiratory Rate 18 22 H 20 Blood Pressure 118/73 121/80 Pulse Oximetry 95 96 Oxygen Delivery Room Air Fraction of Inspired Oxygen 10/13/24 19:01 10/13/24 19:30 10/13/24 20:00 Temperature Pulse Rate 129 H 132 H 135 H Respiratory Rate 21 H 20 23 H Blood Pressure 114/84 107/79 109/95 H Pulse Oximetry 97 97 97 Oxygen Delivery Fraction of Inspired Oxygen 10/13/24 20:15 10/13/24 20:30 10/13/24 20:45 Temperature Pulse Rate 126 H 122 H 121 H Respiratory Rate 22 H 17 21 H Blood Pressure 134/95 H 137/85 143/95 H Pulse Oximetry 99 97 99 Oxygen Delivery Fraction of Inspired Oxygen 10/13/24 22:00 10/13/24 22:00 10/13/24 22:29 Temperature 97.7 F Pulse Rate 126 H 126 H 117 H Respiratory Rate 19 Blood Pressure 132/109 H Pulse Oximetry 95 Oxygen Delivery Fraction of Inspired Oxygen 10/13/24 23:26 10/14/24 00:00 10/14/24 00:00 Temperature 97.7 F Pulse Rate 110 H 115 H 103 H Respiratory Rate 20 17 Blood Pressure 94/62 L Pulse Oximetry 96 93 Oxygen Delivery Room Air Fraction of Inspired Oxygen 21 Exam Narrative: GENERAL: Well-appearing, well-nourished, and in no acute distress. HEAD: Normocephalic, atraumatic. EYES: PERRLA and EOMI. ENT: Nares clear, no rhinorrhea or epistaxis. Mucous membranes moist. NECK: Supple. CHEST: Clear to auscultation. No respiratory distress. HEART: Regular rate and rhythm. No murmur heard. Normal peripheral pulses. ABDOMEN: Soft, nontender, nondistended, normal active bowel sounds. EXTREMITIES: Normal range of motion. No edema. SKIN: Warm, dry, no rash. NEURO: No focal deficits. Alert and oriented x3. PSYCH: Normal mood and affect. H&P: Results Labs Labs: Short CBC 10/13/24 Range/Units 18:31 WBC 8.4 (4.5-10.0) K/mm3 Hgb 15.3 (14.0-18.0) g/dL Hct 46.6 (42.0-52.0) % Plt Count 230 (150-375) k/mm3 [facility] 10/13/24 10/13/24 10/13/24 18:31 18:31 18:31 Sodium Cancelled 132 L Potassium Cancelled 4.6 Chloride Cancelled Carbon Dioxide BUN Creatinine Glucose Calcium 10/13/24 10/13/24 10/13/24 18:31 18:31 18:31 Sodium Potassium Chloride 95 L Carbon Dioxide Cancelled 23 BUN Cancelled 29 H D Creatinine Cancelled Glucose Calcium 10/13/24 10/13/24 10/13/24 18:31 18:31 18:31 Sodium Potassium Chloride Carbon Dioxide BUN Creatinine 1.13 Glucose Cancelled 403 H Calcium Cancelled 9.2 10/13/24 21:27 Sodium 135 L Potassium 3.9 Chloride 101 Carbon Dioxide 22 BUN 25 H Creatinine 1.04 Glucose 275 H Calcium 8.5 Liver Function 10/13/24 10/13/24 10/13/24 Range/Units 18:31 18:31 18:31 Total Bilirubin Cancelled 0.8 AST Cancelled 27 ALT Cancelled Alkaline Phosphatase Albumin 10/13/24 10/13/24 10/13/24 Range/Units 18:31 18:31 18:31 Total Bilirubin AST ALT 22 Alkaline Phosphatase Cancelled 103 Albumin Cancelled 4.3 Urine 10/13/24 Range/Units 18:31 Urine Color Yellow (Yellow) Urine Appearance Clear (Clear) Urine pH 5.5 (5.0-9.0) Ur Specific [place] 1.034 (1.001-1.035) Urine Protein Negative (Negative) mg/dL Urine Glucose (UA) 3+ H (Negative) mg/dL Assessment and Plan Assessment and plan (1) Acute hyperglycemia: Code(s): R73.9 - Hyperglycemia, unspecified Status: Acute (2) Ketosis: Code(s): E88.89 - Other specified metabolic disorders Status: Acute (3) Obstructive sleep apnea: Code(s): G47.33 - Obstructive sleep apnea (adult) (pediatric) Status: Acute (4) Atrial fibrillation: Code(s): I48.91 - Unspecified atrial fibrillation Status: Acute Plan DKA Possible non compliance Reviewed ABG DKA protocol initiated Monitor anion gap Positive for ketones in the urine and beta hydroxybutyrate ivf bolus and iv fluid infusion insulin infusion started and q1h glucose monitoring serial bmp q 4hrsordered k ,po4and mg replacement will transition to sc insulin once ag is closed link trainer mechanic consulted access coordinator consulted revenue research analyst consulted hold home meds A.Fib New onset. Order TSH Denies alcoholism, drug abuse, excessive caffeine intake Untreated DEYSI [id number] 2(DM and HTN) Order HbA1c and Lipid Panel Cardiology Consulted Hypertension Continue amlodipine and lisinopril OM left leg Chronic Follows with ID at [facility] Continue Cephalexin and Doxycycline DVT prophylaxis: lovenox 40 mg sq qd Hospitalist MIPS Advance Care Plan I have confirmed that the patient's Advanced Care Plan is present, code status is documented, or surrogate decision maker is listed in patient medical record.: Yes Medication Reconciliation I have utilized all available resources to obtain, update and review the patients current medications (includes all prescriptions, OTC, herbals, cannabis, and nutritional supplements).: Yes
[2024-10-14 01:07] LABS: Glucose Point of Care 115 mg/dl (65-105)
[2024-10-14] MEDS: risperiDONE 1 MG TABLET 4 MG PO (01:09)
[2024-10-14 01:57] LABS: Anion Gap 8 mmol/L (4-12); Blood Urea Nitrogen 22 mg/dL (9-20); Calcium 8.3 mg/dL (8.4-10.2); Carbon Dioxide 25 mmol/L (22-30); Chloride 103 mmol/L (98-107); Cholesterol 66 mg/dL (0-200); Estimated CRCL calculation 112 ml/min; Estimated Glomerular Filt Rate > 60; Glucose 115 mg/dL (65-110); HDL Direct 23 mg/dL; Potassium 3.2 mmol/L (3.4-5.0); Sodium 136 mmol/L (137-145); Triglycerides 93 mg/dL (<150)
[2024-10-14 02:36] LABS: LDL Cholesterol Direct < 30 mg/dL
[2024-10-14 03:09] LABS: Glucose Point of Care 121 mg/dl (65-105)
[2024-10-14 04:12] LABS: Glucose Point of Care 134 mg/dl (65-105)
[2024-10-14 05:08] LABS: Glucose Point of Care 150 mg/dl (65-105)
[2024-10-14 05:33] LABS: Anion Gap 4 mmol/L (4-12); Blood Urea Nitrogen 19 mg/dL (9-20); Calcium 7.8 mg/dL (8.4-10.2); Carbon Dioxide 29 mmol/L (22-30); Chloride 104 mmol/L (98-107); Estimated CRCL calculation 102 ml/min; Estimated Glomerular Filt Rate > 60; Glucose 137 mg/dL (65-110); Potassium 3.9 mmol/L (3.4-5.0); Sodium 137 mmol/L (137-145)
[2024-10-14 06:45] LABS: Glucose Point of Care 160 mg/dl (65-105)
--- NOTE | 2024-10-14 07:57 | P.CONIN_ITS ---
Assessment and Plan Assessment and plan (1) DKA (diabetic ketoacidosis): Code(s): E11.10 - Type 2 diabetes mellitus with ketoacidosis without coma Status: Acute Assessment and Plan: Patient admitted with hyperglycemia and mild DKA. Pt was given IVF bolus and started on infusion Patient was started on Insulin infusion started and Q1H glucose monitoring is being done Serial labs were performed patient asymptomatic anion gap is closed. I will transition him to subcutaneous insulin diabetic diet consult dietitian and clinical nurse educator resume metformin and rybelsus (2) Atrial fibrillation: Code(s): I48.91 - Unspecified atrial fibrillation Status: Acute Assessment and Plan: new onset AFib. Patient asymptomatic. Patient was started on p.o. metoprolol at the time of admission. Will continue p.o. metoprolol at 25 mg p.o. b.i.d. IV p.r.n. metoprolol TSH normal cardiology consult check echocardiogram start Eliquis. discussed initiation of anticoagulation with the patient. Explained risks and benefits of anticoagulation including crease bleeding in the rational behind anticoagulation. Also explained option of of DC cardioversion down the line and plan for cardiology consult today. Patient verbalized understanding and agreed to proceed with anticoagulation denies any evidence of bleeding at this time. (3) Obstructive sleep apnea: Code(s): G47.33 - Obstructive sleep apnea (adult) (pediatric) Status: Acute Assessment and Plan: patient has been diagnosed with BiPAP but has not received his BiPAP machine. I will start him on CPAP at home settings while he is in the hospital. (4) Hypertension: Code(s): I10 - Essential (primary) hypertension Status: Acute Assessment and Plan: continue lisinopril hold Norvasc started on metoprolol for AFib with RVR (5) Hyperlipidemia: Code(s): E78.5 - Hyperlipidemia, unspecified Status: Acute Assessment and Plan: Continue rosuvastatin Plan DVT prophylaxis - apixaban Nutrition - consistent carbohydrate diet Code Status - Full Code incentive spirometry transfer out of ICU today Financial Planning Analyst Consult Note Consult date: 10/14/24 Reason for consult: DKA, AFib HPI: Carlitos Melendez is a 54 year old male with a past medical history of chronic osteomyelitis,, sleep apnea, hypertension, hyperlipidemia and type 2 diabetes who presented to ER yesterday with ischemia. Patient states that for last few days he has been having increased urination. He denies any dysuria hematura or fever. he states he usually drinks lot of water and hence did not noticed any polydipsia. He checked his blood sugar at home he states it was in 190s. He states that he did not feel any symptoms and did not had any complaints. He claims compliance with medication. He ended up going to his PCP where he was found to be having blood sugar and 400s and hence was referred to ER. Patient denies fever, chest pain, shortness of breath, cough, nausea vomiting, abdominal pain,, diarrhea, headache or constipation. no Hematochezia no melena. No dizziness lightheadedness or loss of consciousness. All other systems were reviewed and were negative. He cannot see from his left eye due to traumatic injury to his left eye many years ago. Workup in the ER showed WBC 8.4, hemoglobin 15.3, platelet 230, sodium 132, potassium 3.9, chloride 95, bicarb 23, BUN 29, creatinine 1.13, glucose 403, anion gap 14 HBA1c greater than 14 Hydroxybutyrate: 3.06 UA positive for ketones ABG: PH 7.3, PO2 70.8, CO2 39.1, bicarb 21.6 patient was diagnosed with DKA and started on IV fluids and IV insulin. Patient was also found to be in AFib with mild elevated ventricular rate and was given metoprolol p.o. patient was admitted to ICU for further evaluation management. Of note is that the patient has left leg osteomyelitis, for which he takes cephalexin and doxycycline, and he follows up with Infectious Disease at [facility]. Review of Systems 2 Review of Systems: All systems reviewed & are unremarkable except as noted in HPI and below ( HPI) [facility] Past Medical History Medical History Hyperlipidemia Hypertension Diabetes Asthma Acid reflux Fatigue Deviated nasal septum Allergic rhinitis Family History Family History Mother Asthma Hypertension Father Diabetes mellitus Social History Social History Smoking status: Never smoker Alcohol intake: current Drinks per week: 0 Substance use: never Do You Feel Safe in your Home?: Yes Lack of Transportation: No Lack of Food: Never True Current Housing: I Have Housing Concerned About Future Housing: No Difficulty Paying Gas/Electric Bills: No Difficulty Paying for Meds: No Currently Unemployed: No Education: High School Diploma/GED Difficulty w/ Childcare or Family Care: No Spiritual care concerns: No Meds Home Medications and Allergies Home Medications Medication Instructions Recorded Confirmed Type amlodipine 10 mg tablet 10 mg PO DAILY 10/13/24 10/13/24 History cephalexin 500 mg capsule 500 mg PO DAILY 10/13/24 10/13/24 History doxycycline monohydrate 100 mg 100 mg PO DAILY 10/13/24 10/13/24 History tablet fluoxetine 20 mg capsule 20 mg PO DAILY 10/13/24 10/13/24 History fluticasone propionate 50 1 spray intranasal DAILY 10/13/24 10/13/24 History mcg/actuation nasal spray,suspension lisinopril 20 mg tablet 20 mg PO DAILY 10/13/24 10/13/24 History metformin 500 mg tablet,extended 1,000 mg PO BID 10/13/24 10/13/24 History release 24 hr montelukast 10 mg tablet 10 mg PO DAILY 10/13/24 10/13/24 History risperidone 4 mg tablet 4 mg PO HS 10/13/24 10/13/24 History rosuvastatin 10 mg tablet 10 mg PO DAILY 10/13/24 10/13/24 History semaglutide 7 mg tablet (Rybelsus) 7 mg PO DAILY 10/13/24 10/13/24 History Allergies Allergy/AdvReac Type Severity Reaction Status Date / Time No Known Allergies Allergy Verified 10/13/24 16:57 Vital Signs Vital Signs - 24 hr 10/13/24 16:54 10/13/24 18:38 10/13/24 18:46 Temperature 36.8 C Pulse Rate 120 H 129 H Respiratory Rate 18 22 H 20 Blood Pressure 118/73 121/80 Pulse Oximetry 95 96 Oxygen Delivery Room Air Fraction of Inspired Oxygen 10/13/24 19:01 10/13/24 19:30 10/13/24 20:00 Temperature Pulse Rate 129 H 132 H 135 H Respiratory Rate 21 H 20 23 H Blood Pressure 114/84 107/79 109/95 H Pulse Oximetry 97 97 97 Oxygen Delivery Fraction of Inspired Oxygen 10/13/24 20:15 10/13/24 20:30 10/13/24 20:45 Temperature Pulse Rate 126 H 122 H 121 H Respiratory Rate 22 H 17 21 H Blood Pressure 134/95 H 137/85 143/95 H Pulse Oximetry 99 97 99 Oxygen Delivery Fraction of Inspired Oxygen 10/13/24 22:00 10/13/24 22:00 10/13/24 22:29 Temperature 36.5 C Pulse Rate 126 H 126 H 117 H Respiratory Rate 19 Blood Pressure 132/109 H Pulse Oximetry 95 Oxygen Delivery Fraction of Inspired Oxygen 10/13/24 23:26 10/14/24 00:00 10/14/24 00:00 Temperature 36.5 C Pulse Rate 110 H 115 H 103 H Respiratory Rate 20 17 Blood Pressure 94/62 L Pulse Oximetry 96 93 Oxygen Delivery Room Air Fraction of Inspired Oxygen 21 10/14/24 02:00 10/14/24 02:00 10/14/24 04:00 Temperature 36.4 C L Pulse Rate 95 95 109 H Respiratory Rate 16 22 H Blood Pressure 112/78 120/97 H Pulse Oximetry 94 95 Oxygen Delivery Fraction of Inspired Oxygen 10/14/24 04:00 10/14/24 06:00 10/14/24 06:00 Temperature Pulse Rate 112 H 108 H 108 H Respiratory Rate 14 Blood Pressure 111/71 Pulse Oximetry 97 Oxygen Delivery Fraction of Inspired Oxygen Exam 2 Narrative: General: Pt is alert awake and in NAD Lungs/Chest: Trachea central Clear BS B/L, No crackles or wheezing. Cardiac: irregular rate and rhythm. Normal S1 S2. No murmurs Circulation: Pedal pulses are intact and symmetrical. Abdomen: Normal bowel sounds.. Soft. NT. ND. Extremities: No clubbing, cyanosis or edema. Warm : Pina in place Neurologic: Follows commands. Moves all 4 extremities PERRL AO x3 Skin: No Rash HEENT: left eye status post enucleation Results Labs 10/13/24 18:31 10/14/24 05:17 Labs: Short CBC 10/13/24 Range/Units 18:31 WBC 8.4 (4.5-10.0) K/mm3 Hgb 15.3 (14.0-18.0) g/dL Hct 46.6 (42.0-52.0) % Plt Count 230 (150-375) k/mm3 BMP 10/13/24 10/13/24 10/13/24 18:31 18:31 18:31 Sodium Cancelled 132 L Potassium Cancelled 4.6 Chloride Cancelled Carbon Dioxide BUN Creatinine Glucose Calcium 10/13/24 10/13/24 10/13/24 18:31 18:31 18:31 Sodium Potassium Chloride 95 L Carbon Dioxide Cancelled 23 BUN Cancelled 29 H D Creatinine Cancelled Glucose Calcium 10/13/24 10/13/24 10/13/24 18:31 18:31 18:31 Sodium Potassium Chloride Carbon Dioxide BUN Creatinine 1.13 Glucose Cancelled 403 H Calcium Cancelled 9.2 10/13/24 10/14/24 10/14/24 21:27 01:29 05:17 Sodium 135 L 136 L 137 Potassium 3.9 3.2 L 3.9 Chloride 101 103 104 Carbon Dioxide 22 25 29 BUN 25 H 22 H 19 Creatinine 1.04 0.91 1.01 Glucose 275 H 115 H 137 H Calcium 8.5 8.3 L 7.8 L Liver Function 10/13/24 10/13/24 10/13/24 Range/Units 18:31 18:31 18:31 Total Bilirubin Cancelled 0.8 AST Cancelled 27 ALT Cancelled Alkaline Phosphatase Albumin 10/13/24 10/13/24 10/13/24 Range/Units 18:31 18:31 18:31 Total Bilirubin AST ALT 22 Alkaline Phosphatase Cancelled 103 Albumin Cancelled 4.3 Urine 10/13/24 Range/Units 18:31 Urine Color Yellow (Yellow) Urine Appearance Clear (Clear) Urine pH 5.5 (5.0-9.0) Ur Specific [place] 1.034 (1.001-1.035) Urine Protein Negative (Negative) mg/dL Urine Glucose (UA) 3+ H (Negative) mg/dL Quality VTE Prophylaxis VTE prophylaxis: pharmacologic ordered (Eliquis) Hospitalist MIPS Advance Care Plan I have confirmed that the patient's Advanced Care Plan is present, code status is documented, or surrogate decision maker is listed in patient medical record.: Yes Medication Reconciliation I have utilized all available resources to obtain, update and review the patients current medications (includes all prescriptions, OTC, herbals, cannabis, and nutritional supplements).: Yes
[2024-10-14 07:58] LABS: Glucose Point of Care 157 mg/dl (65-105)
[2024-10-14] MEDS: CEPHALEXIN 500 MG CAPSULE PO (08:12)
[2024-10-14] MEDS: APIXABAN 5 MG TABLET PO ×2 (08:12→20:05)
[2024-10-14] MEDS: metFORMIN HCL 500 MG TABLET 1000 MG PO ×2 (08:12→16:39)
[2024-10-14] MEDS: MONTELUKAST SODIUM 10 MG TABLET PO (08:13)
[2024-10-14] MEDS: METOPROLOL TARTRATE 25 MG TABLET PO (08:13)
[2024-10-14] MEDS: ROSUVASTATIN 10 MG TABLET PO (08:13)
[2024-10-14] MEDS: lisinopriL 20 MG TABLET PO (08:13)
[2024-10-14] MEDS: INSULIN GLARGINE (*BKC) 100 UNITS/ML 20 UNITS SUB-Q (08:14)
[2024-10-14] MEDS: FLUTICASONE PROPIONATE 0.05% NA SPR 16 GM BTL (*BKC) 1 SPRAY NASAL (08:42)
--- NOTE | 2024-10-14 10:18 | P.CONCA_ITS ---
Assessment and Plan Assessment and plan (1) Atrial flutter with rapid ventricular response: Code(s): I48.92 - Unspecified atrial flutter Status: Acute Plan 1. Atrial flutter with RVR. New diagnosis for the patient. TSH level normal. 2. DKA 3. Hypertension 4. Hyperlipidemia 5. Type 2 diabetes mellitus, uncontrolled 6. Chronic osteomyelitis PLAN: -Discussed diagnosis of atrial flutter with the patient and management strategies. Will hold home Lisinopril to allow more blood pressure room for beta samantha therapy. Increase Metoprolol to 50mg BID. Discussed AB-guided DCCV with the patient. Patient agreeable. Will plan for AB-guided DCCV tomorrow. NPO at midnight. -Started on Eliquis 5mg BID. Continue. [id number] of 2 for hypertension and diabetes, recommend long-term anticoagulation for stroke risk reduction. -TTE pending, will follow up on results. -Continue statin for hyperlipidemia. -Management of diabetes per primary team. Recommendations and plan discussed with ICU Physician. History of Present Illness History of Present Illness Consult date/time: 10/14/24 10:18 Requesting physician: Breezy Barrera MD Consult reason: Other (Atrial flutter) Reason For Visit: Hyperglycemia with ketosis Narrative: We are consulted for atrial flutter with RVR. Carlitos is a 54 year old male with hypertension, hyperlipidemia, diabetes mellitus, chronic osteomyelitis who is admitted with DKA. Presented to [facility] due to blood glucose levels being greater than 400. Found to be in atrial flutter with RVR. Denies any symptoms related to the atrial flutter. Started on PO Metoprolol, remains in RVR. No prior cardiac history. No prior history of atrial arrhythmias. Review of Systems 2 Review of Systems: All systems reviewed & are unremarkable except as noted in HPI and below (HPI) [facility] Past Medical History Medical History Hyperlipidemia Hypertension Diabetes Asthma Acid reflux Fatigue Deviated nasal septum Allergic rhinitis Family History Family History Mother Asthma Hypertension Father Diabetes mellitus Social History Social History Smoking status: Never smoker Alcohol intake: current Drinks per week: 0 Substance use: never Do You Feel Safe in your Home?: Yes Lack of Transportation: No Lack of Food: Never True Current Housing: I Have Housing Concerned About Future Housing: No Difficulty Paying Gas/Electric Bills: No Difficulty Paying for Meds: No Currently Unemployed: No Education: High School Diploma/GED Difficulty w/ Childcare or Family Care: No Spiritual care concerns: No Meds Home Medications and Allergies Home Medications Medication Instructions Recorded Confirmed Type amlodipine 10 mg tablet 10 mg PO DAILY 10/13/24 10/13/24 History cephalexin 500 mg capsule 500 mg PO DAILY 10/13/24 10/13/24 History doxycycline monohydrate 100 mg 100 mg PO DAILY 10/13/24 10/13/24 History tablet fluoxetine 20 mg capsule 20 mg PO DAILY 10/13/24 10/13/24 History fluticasone propionate 50 1 spray intranasal DAILY 10/13/24 10/13/24 History mcg/actuation nasal spray,suspension lisinopril 20 mg tablet 20 mg PO DAILY 10/13/24 10/13/24 History metformin 500 mg tablet,extended 1,000 mg PO BID 10/13/24 10/13/24 History release 24 hr montelukast 10 mg tablet 10 mg PO DAILY 10/13/24 10/13/24 History risperidone 4 mg tablet 4 mg PO HS 10/13/24 10/13/24 History rosuvastatin 10 mg tablet 10 mg PO DAILY 10/13/24 10/13/24 History semaglutide 7 mg tablet (Rybelsus) 7 mg PO DAILY 10/13/24 10/13/24 History Allergies Allergy/AdvReac Type Severity Reaction Status Date / Time No Known Allergies Allergy Verified 10/13/24 16:57 Vital Signs Vital Signs - 24 hr 10/13/24 16:54 10/13/24 18:38 10/13/24 18:46 Temperature 36.8 C Pulse Rate 120 H 129 H Respiratory Rate 18 22 H 20 Blood Pressure 118/73 121/80 Pulse Oximetry 95 96 Oxygen Delivery Room Air Fraction of Inspired Oxygen 10/13/24 19:01 10/13/24 19:30 10/13/24 20:00 Temperature Pulse Rate 129 H 132 H 135 H Respiratory Rate 21 H 20 23 H Blood Pressure 114/84 107/79 109/95 H Pulse Oximetry 97 97 97 Oxygen Delivery Fraction of Inspired Oxygen 10/13/24 20:15 10/13/24 20:30 10/13/24 20:45 Temperature Pulse Rate 126 H 122 H 121 H Respiratory Rate 22 H 17 21 H Blood Pressure 134/95 H 137/85 143/95 H Pulse Oximetry 99 97 99 Oxygen Delivery Fraction of Inspired Oxygen 10/13/24 22:00 10/13/24 22:00 10/13/24 22:29 Temperature 36.5 C Pulse Rate 126 H 126 H 117 H Respiratory Rate 19 Blood Pressure 132/109 H Pulse Oximetry 95 Oxygen Delivery Fraction of Inspired Oxygen 10/13/24 23:26 10/14/24 00:00 10/14/24 00:00 Temperature 36.5 C Pulse Rate 110 H 115 H 103 H Respiratory Rate 20 17 Blood Pressure 94/62 L Pulse Oximetry 96 93 Oxygen Delivery Room Air Fraction of Inspired Oxygen 21 10/14/24 02:00 10/14/24 02:00 10/14/24 04:00 Temperature 36.4 C L Pulse Rate 95 95 109 H Respiratory Rate 16 22 H Blood Pressure 112/78 120/97 H Pulse Oximetry 94 95 Oxygen Delivery Fraction of Inspired Oxygen 10/14/24 04:00 10/14/24 06:00 10/14/24 06:00 Temperature Pulse Rate 112 H 108 H 108 H Respiratory Rate 14 Blood Pressure 111/71 Pulse Oximetry 97 Oxygen Delivery Fraction of Inspired Oxygen 10/14/24 08:00 10/14/24 08:00 10/14/24 08:00 Temperature 36.5 C Pulse Rate 119 H 125 H Respiratory Rate 20 Blood Pressure 109/90 Pulse Oximetry 96 Oxygen Delivery Room Air Fraction of Inspired Oxygen 10/14/24 08:13 10/14/24 10:00 Temperature Pulse Rate 123 H 121 H Respiratory Rate Blood Pressure Pulse Oximetry Oxygen Delivery Fraction of Inspired Oxygen Exam 2 Const: General: comfortable and no acute distress HENMT: Mouth: Yes moist mucous membranes Eyes: General: appearance normal, both eyes and all related structures S clera: sclerae normal Resp: Effort & Inspection: normal respiratory effort Cardio: Rate: tachycardic Rhythm: regular rhythm Heart sounds: no murmurs Neuro: Speech: normal speech Psych: Mental Status: mental status grossly normal Affect: normal affect Results Labs and Meds 10/13/24 18:31 10/14/24 05:17 Lab results: Cardiac Enzymes 10/13/24 10/13/24 Range/Units 18:31 18:31 AST Cancelled 27 Lipids 10/14/24 Range/Units 01:29 Triglycerides 93 (<150) mg/dL Cholesterol 66 (0-200) mg/dL CBC 10/13/24 Range/Units 18:31 WBC 8.4 (4.5-10.0) K/mm3 RBC 5.36 (4.6-6.20) M/mm3 Hgb 15.3 (14.0-18.0) g/dL Hct 46.6 (42.0-52.0) % Plt Count 230 (150-375) k/mm3 Lymph # (Auto) 1.87 (0.9-3.2) K/mm3 [place] # (Auto) 0.9 H (0.1-0.6) K/mm3 Eos # (Auto) 0.1 (0-0.3) K/mm3 Baso # (Auto) 0.1 (0.0-0.1) K/mm3 Comprehensive Metabolic Panel 10/13/24 10/13/24 10/13/24 Range/Units 18:31 18:31 18:31 Sodium Cancelled 132 L Potassium Cancelled 4.6 Chloride Cancelled Carbon Dioxide BUN Creatinine Glucose Calcium AST ALT Alkaline Phosphatase Total Protein Albumin 10/13/24 10/13/24 10/13/24 Range/Units 18:31 18:31 18:31 Sodium Potassium Chloride 95 L Carbon Dioxide Cancelled 23 BUN Cancelled 29 H D Creatinine Cancelled Glucose Calcium AST ALT Alkaline Phosphatase Total Protein Albumin 10/13/24 10/13/24 10/13/24 Range/Units 18:31 18:31 18:31 Sodium Potassium Chloride Carbon Dioxide BUN Creatinine 1.13 Glucose Cancelled 403 H Calcium Cancelled 9.2 AST Cancelled ALT Alkaline Phosphatase Total Protein Albumin 10/13/24 10/13/24 10/13/24 Range/Units 18:31 18:31 18:31 Sodium Potassium Chloride Carbon Dioxide BUN Creatinine Glucose Calcium AST 27 ALT Cancelled 22 Alkaline Phosphatase Cancelled 103 Total Protein Cancelled Albumin 10/13/24 10/13/24 10/13/24 Range/Units 18:31 18:31 21:27 Sodium 135 L Potassium 3.9 Chloride 101 Carbon Dioxide 22 BUN 25 H Creatinine 1.04 Glucose 275 H Calcium 8.5 AST ALT Alkaline Phosphatase Total Protein 7.0 Albumin Cancelled 4.3 10/14/24 10/14/24 Range/Units 01:29 05:17 Sodium 136 L 137 Potassium 3.2 L 3.9 Chloride 103 104 Carbon Dioxide 25 29 BUN 22 H 19 Creatinine 0.91 1.01 Glucose 115 H 137 H Calcium 8.3 L 7.8 L AST ALT Alkaline Phosphatase Total Protein Albumin Intake and Output 10/13/24 10/14/24 10/14/24 23:59 07:59 15:59 Intake Total 1396.4 127.6 1089.8 Output Total 350 450 Balance 1396.4 -222.4 639.8 Intake: IV 1396.4 7.6 969.8 Insulin Human Regular (*Bkc) 28.9 7.6 1.5 100 units In Sodium Chloride 0. 9% IV 99 ml @ 1 UNITS/HR 1 mls/ hr IV CONT .Q24H EMA Rx#: [id number] KCl 20 Meq/D5/0.45% Sod Chl 1, 67.5 000 ml @ 150 mls/hr IV CONT . Q6H40M EMA Rx#:[id number] KCl 20Meq/0.9% Sod Chl 1,000 ml 968.3 @ 100 mls/hr IV CONT .Q10H EMA Rx#:[id number] Sodium Chloride 0.9% IV 1,000 1300 ml @ 999 mls/hr IV CONT .Q1H1M STA Rx#:[id number] Oral 120 120 Output: Urine 350 450 Patient Weight 10/14/24 23:59 Weight 122.2 kg
[2024-10-14] MEDS: PERFLUTREN LIPID MICROSPHERES 1.5 ML VIAL DILUTED TO 10 ML TOTAL VOLUME IV PUSH (11:30)
--- NOTE | 2024-10-14 11:49 | IVDEFINITY ---
Prior to administration of IV Definity the patient was educated on the risks and benefits of the imaging enhancing agent including potential adverse side effects. The patient verbalized understanding. Allergies were verified. No exclusion criteria were identified and at least one of the following inclusion criteria were met: 1) physician request, 2) patient technically difficult to image (per the [place] [employer] guidelines of two or more segments not discernable within the apical view), or 3) questionable left ventricular function.
[2024-10-14] MEDS: DOXYCYCLINE HYCLATE 100 MG TABLET PO (11:55)
[2024-10-14] MEDS: INSULIN ASPART (*BKC) 100 UNITS/ML SUB-Q ×3 (11:56→20:35)
[2024-10-14 12:02] LABS: Glucose Point of Care 283 mg/dl (65-105)
[2024-10-14 16:45] LABS: Glucose Point of Care 248 mg/dl (65-105)
--- NOTE | 2024-10-14 17:34 | PHAR ---
*HOME MED* RYBELSUS 7 MG TAB; TAKE 1 TABLET BY MOUTH ONCE DAILY FOR TYPE 2 DIABETES. VERIFIED BY PHARMACY.
[2024-10-14] MEDS: METOPROLOL TARTRATE 50 MG TAB PO (20:05)
[2024-10-14 20:32] LABS: Glucose Point of Care 356 mg/dl (65-105)
[2024-10-15] VITALS (20 sets, daily range): BP systolic 95–149; BP diastolic 51–89; PULSE 58–113; RESP 14–20; TEMP 36.4–36.8; O2SAT 92–99
--- NOTE | 2024-10-15 | ECHO_ITS ---
Patient Info Name: Carlitos Melendez Age: 54 years : 1970 Gender: Male Ht: 75 in Wt: 269 lbs BSA: 2.58 m2 Exam Date: 10/15/2024 7:59 AM Patient Status: I Admit Date: 10/15/2024 Exam Type: CA echo transesophageal Staff Attending Provider: Juan C Cano Summary 1. The left ventricular systolic function is mildly reduced. 2. The left atrial appendage is free of thrombus. 3. There are no significant valvular abnormalities. Complications There were no complication prior to, during or in recovery from the transesophageal echocardiogram. Medications See medication record for details. The posterior pharynx was sprayed with Cetacaine spray. Procedure Details The patient arrived in a fasting state after obtaining informed consent. The transesophageal probe was passed into the posterior pharynx, mid-esophagus, distal esophagus, and gastric fundus. Imaging was performed at multiple levels. The patient tolerated the procedure well and there were no complications. The patient was transferred out of the examination area in satisfactory condition. Sedation provided by anesthesia team. Left Ventricle The left ventricular systolic function is mildly reduced. Right Ventricle The right ventricular systolic function is normal. Left Atria The left atrium is mildly dilated. Right Atria The right atrium is normal size. Atrial Septum The atrial septum is intact by color Doppler. Atrial Appendage The atrial appendage is free of thrombus. Aortic Valve The aortic valve is trileaflet and opens well. There is no aortic regurgitation. Pulmonic Valve The pulmonic valve is grossly normal. There is no pulmonic valve regurgitation. Mitral Valve The mitral valve leaflets are thin and pliable. There is trace mitral regurgitation. Tricuspid Valve The tricuspid valve is normal. Pericardium/Pleural Pericardium is normal in appearance with no evidence for significant pericardial effusion. Aorta The visualized portions of the descending aorta and aortic arch are free of significant atherosclerotic plaque. Report Signatures
[2024-10-15 03:33] LABS: Hematocrit 43.3 % (42.0-52.0); Mean Corpuscular HGB Conc 32.3 g/dl (32-36); Mean Corpuscular Hemoglobin 28.6 pg (26-34); Mean Corpuscular Volume 88.5 fl (80-100); Mean Platelet Volume 11.9 fl (7.4-10.4); Platelet Count Result 195 k/mm3 (150-375); Red Blood Count 4.89 M/mm3 (4.6-6.20); Red Cell Distribution Width 12.7 % (11.5-14.5); White Blood Count 7.5 K/mm3 (4.5-10.0)
[2024-10-15 03:57] LABS: Alanine Aminotransferase 19 U/L (6-50); Albumin Level 3.4 g/dL (3.5-5.1); Alkaline Phosphatase 94 U/L (38-126); Anion Gap 9 mmol/L (4-12); Aspartate Amino Transferase 19 U/L (17-59); Bilirubin,Total 0.5 mg/dL (0.2-1.3); Blood Urea Nitrogen 15 mg/dL (9-20); Calcium 8.5 mg/dL (8.4-10.2); Carbon Dioxide 23 mmol/L (22-30); Chloride 103 mmol/L (98-107); Estimated CRCL calculation 126 ml/min; Estimated Glomerular Filt Rate > 60; Glucose 308 mg/dL (65-110); Magnesium 1.8 mg/dL (1.6-2.3); Potassium 4.1 mmol/L (3.4-5.0); Sodium 135 mmol/L (137-145)
[2024-10-15 07:10] LABS: Glucose Point of Care 275 mg/dl (65-105)
--- NOTE | 2024-10-15 07:15 | ECG_ITS ---
Test Date: 2024-10-15 08:13:42 Measurements Intervals [place] Rate: 76 P: 72 [place]: 169 QRS: 35 QRSD: 121 T: 26 QT: 372 QTc: 420 Interpretive Statements SINUS RHYTHM MODERATE INTRAVENTRICULAR CONDUCTION DELAY [110+ ms QRS DURATION] ABNORMAL ECG Compared to ECG 10/15/2024 07:23:42 Intraventricular conduction delay now present Atrial flutter no longer present Electronically Signed On 10-16-2024 09:33:35 CDT by Reinaldo Oscar M.D.
--- NOTE | 2024-10-15 08:20 | WPDHPUPDATE1 ---
History and Physical Update Update Date/Time: 10/15/24 08:00 History and Physical has been reviewed, including an updated exam of the patient. There are NO changes in the patient's condition. Risks, benefits, and alternatives have been discussed and questions answered. Patient agrees to proceed with procedure.
--- NOTE | 2024-10-15 08:30 | ECG_ITS ---
Test Date: 2024-10-15 07:23:42 Measurements Intervals [place] Rate: 83 P: 0 [place]: 0 QRS: 34 QRSD: 110 T: 17 QT: 337 QTc: 397 Interpretive Statements ATRIAL FLUTTER WITH RAPID VENTRICULAR RATES Compared to ECG 10/13/2024 18:24:22 NO SIGNIFICANT CHANGE Electronically Signed On 10-15-2024 16:02:31 CDT by Aidan Tadeo M.D.
--- NOTE | 2024-10-15 08:40 | SUR.PHASEII ---
Recovered pt in pt's room. Last dose of sedation given at 0805. Pt recovered to 0835 by this RN.
--- NOTE | 2024-10-15 08:54 | WPDANESEPPF ---
Anes - Initial Pre Proc Eval Procedure: Operation Date: 10/15/24 08:00 Proposed Procedures p Trans Esophageal Echo AB - Aidan Tadeo MD s Electrical Cardioversion - Aidan Tadeo MD Date/Time: 10/15/24 08:54 Surgeon: Juan C Cano MD Pre Op Diagnosis: Hyperglycemia with ketosis Patient Data Age: 54 Gender: M Height: 1.91 m Weight: 119.4 kg Last Vital Signs Temp 36.4 C 10/15/24 07:05 Pulse 64 10/15/24 08:35 Resp 18 10/15/24 08:35 BP 106/78 10/15/24 08:35 Pulse Ox 94 10/15/24 08:35 O2 Del Method Room Air 10/15/24 08:35 FiO2 21 10/14/24 20:27 Allergies Allergy/AdvReac Type Severity Reaction Status Date / Time No Known Allergies Allergy Verified 10/13/24 16:57 Home Medications Medication Instructions Recorded Confirmed Type amlodipine 10 mg tablet 10 mg PO DAILY 10/13/24 10/13/24 History cephalexin 500 mg capsule 500 mg PO DAILY 10/13/24 10/13/24 History doxycycline monohydrate 100 mg 100 mg PO DAILY 10/13/24 10/13/24 History tablet fluoxetine 20 mg capsule 20 mg PO DAILY 10/13/24 10/13/24 History fluticasone propionate 50 1 spray intranasal DAILY 10/13/24 10/13/24 History mcg/actuation nasal spray,suspension lisinopril 20 mg tablet 20 mg PO DAILY 10/13/24 10/13/24 History metformin 500 mg tablet,extended 1,000 mg PO BID 10/13/24 10/13/24 History release 24 hr montelukast 10 mg tablet 10 mg PO DAILY 10/13/24 10/13/24 History risperidone 4 mg tablet 4 mg PO HS 10/13/24 10/13/24 History rosuvastatin 10 mg tablet 10 mg PO DAILY 10/13/24 10/13/24 History semaglutide 7 mg tablet (Rybelsus) 7 mg PO DAILY 10/13/24 10/13/24 History Laboratory Tests 10/14/24 10/14/24 10/14/24 11:54 16:37 20:12 WBC RBC Hgb Hct MCV MCH MCHC RDW Plt Count MPV Sodium Potassium Chloride Carbon Dioxide Anion Gap BUN Creatinine Estim Creat Clear Calc Estimated GFR Glucose POC Capillary Glucose 283 H mg/dl 248 H mg/dl 356 H mg/dl (65-105) (65-105) (65-105) Calcium Magnesium Total Bilirubin AST ALT Alkaline Phosphatase Total Protein Albumin 10/15/24 10/15/24 03:29 07:07 WBC 7.5 K/mm3 (4.5-10.0) RBC 4.89 M/mm3 (4.6-6.20) Hgb 14.0 g/dL (14.0-18.0) Hct 43.3 % (42.0-52.0) MCV 88.5 fl (80-100) MCH 28.6 pg (26-34) MCHC 32.3 g/dl (32-36) RDW 12.7 % (11.5-14.5) Plt Count 195 k/mm3 (150-375) MPV 11.9 H fl (7.4-10.4) Sodium 135 L mmol/L (137-145) Potassium 4.1 mmol/L (3.4-5.0) Chloride 103 mmol/L (98-107) Carbon Dioxide 23 mmol/L (22-30) Anion Gap 9 mmol/L (4-12) BUN 15 mg/dL (9-20) Creatinine 0.80 mg/dL (0.7-1.3) Estim Creat Clear Calc 126 ml/min Estimated GFR > 60 (59 - ) Glucose 308 H mg/dL (65-110) POC Capillary Glucose 275 H mg/dl (65-105) Calcium 8.5 mg/dL (8.4-10.2) Magnesium 1.8 mg/dL (1.6-2.3) Total Bilirubin 0.5 mg/dL (0.2-1.3) AST 19 U/L (17-59) ALT 19 U/L (6-50) Alkaline Phosphatase 94 U/L (38-126) Total Protein 6.0 L g/dL (6.3-8.2) Albumin 3.4 L g/dL (3.5-5.1) Patient hx anesthesia problems: none Family hx anesthesia problems: none Results Review: All pre-operative results and documents have been reviewed as part of the pre-operative evaluation. [facility] Past Medical History Medical History Hyperlipidemia Hypertension Diabetes Asthma Acid reflux Fatigue Deviated nasal septum Allergic rhinitis Family History Family History Mother Asthma Hypertension Father Diabetes mellitus Social History Social History Smoking status: Never smoker Alcohol intake: current Drinks per week: 0 Substance use: never Do You Feel Safe in your Home?: Yes Lack of Transportation: No Lack of Food: Never True Current Housing: I Have Housing Concerned About Future Housing: No Difficulty Paying Gas/Electric Bills: No Difficulty Paying for Meds: No Currently Unemployed: No Education: High School Diploma/GED Difficulty w/ Childcare or Family Care: No Spiritual care concerns: No Anes - Eval Final PreProcedure Day of Procedure 10/15/24 08:54 Patient weight: obese Heart: regular rate and rhythm Lungs: clear to auscultation Airway: Mallampati scale class III Neurological: alert and oriented Last oral intake: >/= 8 hours ASA classification: IV Emergent: no Anesthetic plan: proceed Anesthesia type and monitoring: general GIVS and standard monitoring Results Review: All pre-operative results and documents have been reviewed as part of the pre-operative evaluation. Informed Consent: The patient's anesthetic plan and its attendant risks and benefits were discussed with the patient/family/POA. Questions were solicited and answers provided to the satisfaction of the patient/family/POA.
[2024-10-15 09:35] LABS: Glucose Point of Care 260 mg/dl (65-105)
[2024-10-15] MEDS: metFORMIN HCL 500 MG TABLET 1000 MG PO ×2 (09:47→17:02)
[2024-10-15] MEDS: METOPROLOL SUCCINATE EXT REL 50 MG TABCR PO (09:48)
[2024-10-15] MEDS: ROSUVASTATIN 10 MG TABLET PO (09:48)
[2024-10-15] MEDS: MONTELUKAST SODIUM 10 MG TABLET PO (09:48)
[2024-10-15] MEDS: APIXABAN 5 MG TABLET PO ×2 (09:50→20:46)
[2024-10-15] MEDS: FLUTICASONE PROPIONATE 0.05% NA SPR 16 GM BTL (*BKC) 1 SPRAY NASAL (09:50)
[2024-10-15] MEDS: CEPHALEXIN 500 MG CAPSULE PO (09:50)
[2024-10-15] MEDS: INSULIN GLARGINE (*BKC) 100 UNITS/ML 20 UNITS SUB-Q (09:50)
[2024-10-15] MEDS: RYBELSUS 7 MG 7 EACH BY MOUTH (09:54)
[2024-10-15] MEDS: INSULIN ASPART (*BKC) 100 UNITS/ML SUB-Q ×4 (09:54→20:46)
--- NOTE | 2024-10-15 10:39 | P.PCNTEECA_ITS ---
AB with Cardioversion Date of procedure: 10/15/24 Procedure Type: Transesophageal echocardiogram with synchronized cardioversion Diagnosis: Paroxysmal atrial fibrillation/flutter with rapid ventricular rates Indications: Paroxysmal atrial fibrillation/flutter with rapid ventricular rates Description of Procedure: After verbal and written informed consent was obtained, the patient risks, benefits, and alternatives explained in detail. The patient agreed to proceed with the plan of care as outlined above. The patient was evaluated at bedside in the [facility] procedure room. The posterior oropharynx, neck, and jaw angle all within normal limits on examination. Lungs were clear to auscultation. The patient was then placed in the appropriate 30 to 45 degree angle supine position at a slight left lateral decubitus position. Patient was monitored throughout the study with telemetry, oxygen saturation, end-tidal CO2 monitoring, blood pressure, heart rate, and respirations. The posterior hypopharynx was then locally anesthetized using repeated administration of Hurricaine spray. Sedation and monitored anesthesia care was provided by the anesthesiology team. After confirmation of adequate sedation, the transesophageal echocardiogram probe was advanced through the oral bite block into the posterior hypopharynx and into the esophagus easily and without complication. Multiple, multiplanar echocardiographic images were obtained in multiple standard re-projections. Pulsed wave, continuous-wave, and color-flow Doppler were utilized in conjunction with this study. At the conclusion of the study, the transesophageal echocardiogram probe was removed easily and without complication. With the confirmation that left atrial appendage is clear of thr ombus, we proceeded to perform synchronized electrical cardioversion with sabianism of sinus rhythm after delivery of 200 Joules. The patient tolerated the procedure well without difficulty. Sedation: Refer to anesthesia notes Findings: Refer to echo dictation Conclusion: Successful synchronized cardioversion with sabianism of sinus rhythm.
[2024-10-15] MEDS: DOXYCYCLINE HYCLATE 100 MG TABLET PO (10:49)
--- NOTE | 2024-10-15 11:52 | P.PNIM_ITS ---
Progress Note: A&P Assessment and Plan (1) DKA (diabetic ketoacidosis): Code(s): E11.10 - Type 2 diabetes mellitus with ketoacidosis without coma Status: Acute Assessment and Plan: 10/14: Patient admitted with hyperglycemia and mild DKA. Pt was given IVF bolus and started on infusion -has been transition to long-acting insulin and sliding scale insulin 10/14 -continue metformin, semaglutide, Lantus -continue diabetic diet -personal development educator and dietitian to evaluate the -hemoglobin A1c > 14.0 this admission (2) Atrial fibrillation: Code(s): I48.91 - Unspecified atrial fibrillation Status: Deleted Assessment and Plan: new onset AFib. Patient asymptomatic. Patient was started on p.o. metoprolol at the time of admission. Will continue p.o. metoprolol at 25 mg p.o. b.i.d. IV p.r.n. metoprolol TSH normal Appreciate cardiology evaluation recommendation -09/15: Status post AB with successful cardioversion to sinus rate and rhythm, 200 joules x1 - continue Eliquis ( discussed with pts initiation of anticoagulation with the patient. Explained risks and benefits of anticoagulation including crease bleeding in the rational behind anticoagulation ) (3) Obstructive sleep apnea: Code(s): G47.33 - Obstructive sleep apnea (adult) (pediatric) Status: Acute Assessment and Plan: patient has been diagnosed with BiPAP, but has not received his BiPAP machine. - continue CPAP at home settings while he is in the hospital. (4) Hypertension: Code(s): I10 - Essential (primary) hypertension Status: Acute Assessment and Plan: continue lisinopril, metoprolol (5) Hyperlipidemia: Code(s): E78.5 - Hyperlipidemia, unspecified Status: Acute Assessment and Plan: Continue rosuvastatin Plan DVT prophylaxis - apixaban Nutrition - consistent carbohydrate diet Code Status - Full Code Subjective Date/time seen: 10/15/24 11:52 Interval history: Reason for consult: Diabetic ketoacidosis, atrial fibrillation/flutter 10/15/2024: Patient being seen for hospitalist team Patient seen and examined, pleasant gentleman in no acute distress, status post AB with cardioversion this morning, currently in sinus rhythm, rate control. Denies any shortness of breath, chest pain, abdominal pain, nausea, vomiting. When I told him his hemoglobin A1c was > 14.0, he stated that he has been having a lot of candies recently, they had also taken a off for some diabetes medications Review of Systems Review of Systems: All systems reviewed & are unremarkable except as noted in HPI and below ( HPI) Exam Narrative: General: Pt is alert awake and in NAD HEENT: Right eye pupil is equal and reactive, left eye status post enucleation Lungs/Chest: Trachea central Clear BS B/L, No crackles or wheezing. Cardiac:, sinus rhythm regular rate, no murmur Circulation: Pedal pulses are intact and symmetrical. Abdomen: Normal bowel sounds.. Soft. NT. ND. Extremities: No clubbing, cyanosis or edema. Warm : Pina in place Neurologic: Follows commands. Moves all 4 extremities PERRL AO x3 Skin: No Rash Objective Data Vital Signs Vital Signs: Vital Signs - 24 hr 10/14/24 12:00 10/14/24 12:00 10/14/24 12:00 Temperature 98.0 F Pulse Rate 128 H 112 H Respiratory Rate 18 Blood Pressure 93/50 L Pulse Oximetry 100 Oxygen Delivery Room Air Fraction of Inspired Oxygen 10/14/24 12:45 10/14/24 14:00 10/14/24 16:00 Temperature Pulse Rate 107 H Respiratory Rate Blood Pressure 99/65 L Pulse Oximetry Oxygen Delivery Room Air Fraction of Inspired Oxygen 10/14/24 16:00 10/14/24 16:00 10/14/24 18:00 Temperature 98.0 F Pulse Rate 77 116 H 115 H Respiratory Rate 20 Blood Pressure 116/80 Pulse Oximetry 98 Oxygen Delivery Fraction of Inspired Oxygen 10/14/24 20:00 10/14/24 20:00 10/14/24 20:00 Temperature 97.8 F Pulse Rate 127 H 135 H Respiratory Rate 18 Blood Pressure 116/89 Pulse Oximetry 96 Oxygen Delivery Room Air Fraction of Inspired Oxygen 10/14/24 20:05 10/14/24 20:27 10/14/24 22:00 Temperature Pulse Rate 130 H 68 116 H Respiratory Rate 16 Blood Pressure Pulse Oximetry 94 Oxygen Delivery Room Air Fraction of Inspired Oxygen 21 10/14/24 22:55 10/15/24 00:00 10/15/24 00:00 Temperature 98.1 F Pulse Rate 104 H Respiratory Rate 17 Blood Pressure 100/82 Pulse Oximetry 98 Oxygen Delivery Autopap CPAP Fraction of Inspired Oxygen 10/15/24 00:00 10/15/24 02:00 10/15/24 04:00 Temperature Pulse Rate 97 105 H Respiratory Rate Blood Pressure Pulse Oximetry Oxygen Delivery CPAP Fraction of Inspired Oxygen 10/15/24 04:00 10/15/24 04:00 10/15/24 06:00 Temperature 97.8 F Pulse Rate 94 84 113 H Respiratory Rate 14 Blood Pressure 95/67 L Pulse Oximetry 92 Oxygen Delivery Fraction of Inspired Oxygen 10/15/24 07:05 10/15/24 08:20 10/15/24 08:35 Temperature 97.6 F Pulse Rate 69 64 Respiratory Rate 14 18 Blood Pressure 112/89 106/78 Pulse Oximetry 92 94 Oxygen Delivery Room Air Room Air Fraction of Inspired Oxygen 10/15/24 09:12 10/15/24 09:48 Temperature Pulse Rate 68 Respiratory Rate Blood Pressure Pulse Oximetry 95 Oxygen Delivery Room Air Fraction of Inspired Oxygen Intake/Output Intake/Output: Intake & Output 10/12/24 10/13/24 10/14/24 10/15/24 23:59 23:59 23:59 23:59 Intake Total 1396.4 2597.4 450 Output Total 2620 2125 Balance 1396.4 -22.6 -1675 Meds/Results Medications: Active Medications Generic Name Dose Route Start Last Admin Trade Name Freq PRN Reason Stop Dose Admin Apixaban 5 mg 10/14/24 09:00 10/15/24 09:50 Apixaban 5 Mg Tablet PO 5 mg Q12HR EMA Administration Cephalexin HCl 500 mg 10/14/24 09:00 10/15/24 09:50 Cephalexin 500 Mg Capsule PO 500 mg DAILY EMA Administration Dextrose 12.5 gm 10/13/24 19:42 Dextrose 50% 25 Gm/50 Ml Syringe IV PUSH PRN PRN Hypoglycemia Protocol Doxycycline Hyclate 100 mg 10/14/24 11:00 10/15/24 10:49 Doxycycline Hyclate 100 Mg Tablet PO 100 mg DAILY@1100 EMA Administration Fluoxetine HCl 20 mg 10/14/24 09:00 10/15/24 09:49 Fluoxetine Hcl 20 Mg Capsule PO Not Given DAILY EMA Fluticasone Propionate 1 spray 10/14/24 09:00 10/15/24 09:50 Fluticasone Propionate 0.05% Na Spr 16 Gm Btl (*Bkc) NASAL 1 spray DAILY EMA Administration Glucagon 1 mg 10/13/24 19:42 Glucagon For Inj 1 Mg Vial IM PRN PRN Hypoglycemia Protocol Glucose 15 gm 10/13/24 19:42 Glucose Oral Gel 15 Gm Of Glucse In 37.5 Gm Tube PO PRN PRN Hypoglycemia Protocol Dextrose 1,000 mls @ 100 mls/hr 10/13/24 19:42 Dextrose 5% 1,000 Ml IVPB PRN PRN Hypoglycemia Protocol Insulin Aspart 3 - 6 units 10/14/24 08:00 10/15/24 09:54 Insulin Aspart (*Bkc) 100 Units/Ml SUB-Q 4 units TIDWM EMA Administration Protocol Insulin Aspart 1 - 3 units 10/14/24 21:00 10/14/24 20:35 Insulin Aspart (*Bkc) 100 Units/Ml SUB-Q 3 units HS EMA Administration Protocol Insulin Glargine 20 units 10/14/24 08:00 10/15/24 09:50 Insulin Glargine (*Bkc) 100 Units/Ml SUB-Q 20 units QAM EMA Administration Lisinopril 20 mg 10/14/24 09:00 10/14/24 08:13 Lisinopril 20 Mg Tablet PO 20 mg DAILY EMA Administration Metformin HCl 1,000 mg 10/14/24 08:00 10/15/24 09:47 Metformin Hcl 500 Mg Tablet PO 1,000 mg BIDWM EMA Administration Metoprolol Succinate 50 mg 10/15/24 09:00 10/15/24 09:48 Metoprolol Succinate Ext Rel 50 Mg Tabcr PO 50 mg QAM EMA Administration Metoprolol Tartrate 5 mg 10/13/24 22:19 Metoprolol Tartrate Inj 5 Mg/5 Ml Vial IV PUSH Q4HR PRN Heart Rate- High Montelukast Sodium 10 mg 10/14/24 09:00 10/15/24 09:48 Montelukast Sodium 10 Mg Tablet PO 10 mg DAILY EMA Administration Rybelsus 7 Mg *Home 7 mg 10/15/24 09:00 10/15/24 09:54 Med* BY MOUTH 11/14/24 08:59 7 mg DAILY EMA Administration Risperidone 4 mg 10/14/24 01:00 10/14/24 20:05 Risperidone 1 Mg Tablet PO Not Given HS PENDING SALE TO [facility] Rosuvastatin Calcium 10 mg 10/14/24 09:00 10/15/24 09:48 Rosuvastatin 10 Mg Tablet PO 10 mg DAILY EMA Administration Labs Labs: Laboratory Results - last 24 hr 10/14/24 10/14/24 10/14/24 11:54 16:37 20:12 WBC RBC Hgb Hct MCV MCH MCHC RDW Plt Count MPV Sodium Potassium Chloride Carbon Dioxide Anion Gap BUN Creatinine Estim Creat Clear Calc Estimated GFR Glucose POC Capillary Glucose 283 H 248 H 356 H Calcium Magnesium Total Bilirubin AST ALT Alkaline Phosphatase Total Protein Albumin 10/15/24 10/15/24 10/15/24 03:29 07:07 09:32 WBC 7.5 RBC 4.89 Hgb 14.0 Hct 43.3 MCV 88.5 MCH 28.6 MCHC 32.3 RDW 12.7 Plt Count 195 MPV 11.9 H Sodium 135 L Potassium 4.1 Chloride 103 Carbon Dioxide 23 Anion Gap 9 BUN 15 Creatinine 0.80 Estim Creat Clear Calc 126 Estimated GFR > 60 Glucose 308 H POC Capillary Glucose 275 H 260 H Calcium 8.5 Magnesium 1.8 Total Bilirubin 0.5 AST 19 ALT 19 Alkaline Phosphatase 94 Total Protein 6.0 L Albumin 3.4 L Quality VTE Prophylaxis VTE prophylaxis: pharmacologic ordered (Eliquis)
[2024-10-15 12:02] LABS: Glucose Point of Care 292 mg/dl (65-105)
--- NOTE | 2024-10-15 12:12 | PM.PNCARD ---
Progress Note: A&P Assessment and Plan (1) Atrial flutter with rapid ventricular response: Code(s): I48.92 - Unspecified atrial flutter Status: Acute (2) Cardiomyopathy: Code(s): I42.9 - Cardiomyopathy, unspecified Status: Acute (3) Hyperlipidemia: Code(s): E78.5 - Hyperlipidemia, unspecified Status: Acute Plan 54 year old male with hypertension, hyperlipidemia, diabetes mellitus, chronic osteomyelitis who is admitted with DKA found have atrial flutter with rapid ventricular rates Atrial flutter with rapid ventricular rates -status post successful AB cardioversion -consolidate his metoprolol to Toprol 50 mg p.o. daily -continue Eliquis 5 mg p.o. b.i.d. Systolic cardiomyopathy -likely new onset secondary to atrial arrhythmia -on Toprol 50 mg p.o. daily as well as lisinopril 20 mg p.o. daily -will follow up outpatient for repeat transthoracic echocardiogram in 3-6 months Hyperlipidemia -continue rosuvastatin 10 mg every evening No further inpatient cardiac workup warranted at this time. Cardiology will sign off. Please call with additional questions. Subjective Date/time seen: 10/15/24 12:12 Interval history: He is doing well status post AB cardioversion. Denies any chest pain or shortness of breath. No difficulty eating and speaking Review of Systems Cardiovascular: Cardiovascular: Reports as per HPI Respiratory: Respiratory: Reports as per HPI Exam Const: General: comfortable HENMT: Mouth: Yes moist mucous membranes Eyes: Other: Left eye blind Neck: Neck: no JVD Resp: Effort & Inspection: normal respiratory effort Auscultation: clear to auscultation bilaterally Cardio: Rate: regular rate Rhythm: regular rhythm Extrem: General: no pedal edema Objective Data Vital Signs Vital Signs: Vital Signs - 24 hr 10/14/24 12:45 10/14/24 14:00 10/14/24 16:00 Temperature Pulse Rate 107 H Respiratory Rate Blood Pressure 99/65 L Pulse Oximetry Oxygen Delivery Room Air Fraction of Inspired Oxygen 10/14/24 16:00 10/14/24 16:00 10/14/24 18:00 Temperature 36.7 C Pulse Rate 77 116 H 115 H Respiratory Rate 20 Blood Pressure 116/80 Pulse Oximetry 98 Oxygen Delivery Fraction of Inspired Oxygen 10/14/24 20:00 10/14/24 20:00 10/14/24 20:00 Temperature 36.6 C Pulse Rate 127 H 135 H Respiratory Rate 18 Blood Pressure 116/89 Pulse Oximetry 96 Oxygen Delivery Room Air Fraction of Inspired Oxygen 10/14/24 20:05 10/14/24 20:27 10/14/24 22:00 Temperature Pulse Rate 130 H 68 116 H Respiratory Rate 16 Blood Pressure Pulse Oximetry 94 Oxygen Delivery Room Air Fraction of Inspired Oxygen 21 10/14/24 22:55 10/15/24 00:00 10/15/24 00:00 Temperature 36.7 C Pulse Rate 104 H Respiratory Rate 17 Blood Pressure 100/82 Pulse Oximetry 98 Oxygen Delivery Autopap CPAP Fraction of Inspired Oxygen 10/15/24 00:00 10/15/24 02:00 10/15/24 04:00 Temperature Pulse Rate 97 105 H Respiratory Rate Blood Pressure Pulse Oximetry Oxygen Delivery CPAP Fraction of Inspired Oxygen 10/15/24 04:00 10/15/24 04:00 10/15/24 06:00 Temperature 36.6 C Pulse Rate 94 84 113 H Respiratory Rate 14 Blood Pressure 95/67 L Pulse Oximetry 92 Oxygen Delivery Fraction of Inspired Oxygen 10/15/24 07:05 10/15/24 08:20 10/15/24 08:35 Temperature 36.4 C Pulse Rate 69 64 Respiratory Rate 14 18 Blood Pressure 112/89 106/78 Pulse Oximetry 92 94 Oxygen Delivery Room Air Room Air Fraction of Inspired Oxygen 10/15/24 09:12 10/15/24 09:48 10/15/24 11:57 Temperature 36.6 C Pulse Rate 68 68 Respiratory Rate 19 Blood Pressure 105/66 Pulse Oximetry 95 97 Oxygen Delivery Room Air Fraction of Inspired Oxygen Intake/Output Intake/Output: Intake & Output 10/12/24 10/13/24 10/14/24 10/15/24 23:59 23:59 23:59 23:59 Intake Total 1396.4 2597.4 450 Output Total 2620 2125 Balance 1396.4 -22.6 -1675 Meds/Results Medications: Active Medications Generic Name Dose Route Start Last Admin Trade Name Freq PRN Reason Stop Dose Admin Apixaban 5 mg 10/14/24 09:00 10/15/24 09:50 Apixaban 5 Mg Tablet PO 5 mg Q12HR EMA Administration Cephalexin HCl 500 mg 10/14/24 09:00 10/15/24 09:50 Cephalexin 500 Mg Capsule PO 500 mg DAILY EMA Administration Dextrose 12.5 gm 10/13/24 19:42 Dextrose 50% 25 Gm/50 Ml Syringe IV PUSH PRN PRN Hypoglycemia Protocol Doxycycline Hyclate 100 mg 10/14/24 11:00 10/15/24 10:49 Doxycycline Hyclate 100 Mg Tablet PO 100 mg DAILY@1100 EMA Administration Fluoxetine HCl 20 mg 10/14/24 09:00 10/15/24 09:49 Fluoxetine Hcl 20 Mg Capsule PO Not Given DAILY EMA Fluticasone Propionate 1 spray 10/14/24 09:00 10/15/24 09:50 Fluticasone Propionate 0.05% Na Spr 16 Gm Btl (*Bkc) NASAL 1 spray DAILY EMA Administration Glucagon 1 mg 10/13/24 19:42 Glucagon For Inj 1 Mg Vial IM PRN PRN Hypoglycemia Protocol Glucose 15 gm 10/13/24 19:42 Glucose Oral Gel 15 Gm Of Glucse In 37.5 Gm Tube PO PRN PRN Hypoglycemia Protocol Dextrose 1,000 mls @ 100 mls/hr 10/13/24 19:42 Dextrose 5% 1,000 Ml IVPB PRN PRN Hypoglycemia Protocol Insulin Aspart 3 - 6 units 10/14/24 08:00 10/15/24 12:03 Insulin Aspart (*Bkc) 100 Units/Ml SUB-Q 4 units TIDWM EMA Administration Protocol Insulin Aspart 1 - 3 units 10/14/24 21:00 10/14/24 20:35 Insulin Aspart (*Bkc) 100 Units/Ml SUB-Q 3 units HS EMA Administration Protocol Insulin Glargine 20 units 10/14/24 08:00 10/15/24 09:50 Insulin Glargine (*Bkc) 100 Units/Ml SUB-Q 20 units QAM EMA Administration Lisinopril 20 mg 10/14/24 09:00 10/14/24 08:13 Lisinopril 20 Mg Tablet PO 20 mg DAILY EMA Administration Metformin HCl 1,000 mg 10/14/24 08:00 10/15/24 09:47 Metformin Hcl 500 Mg Tablet PO 1,000 mg BIDWM EMA Administration Metoprolol Succinate 50 mg 10/15/24 09:00 10/15/24 09:48 Metoprolol Succinate Ext Rel 50 Mg Tabcr PO 50 mg QAM EMA Administration Metoprolol Tartrate 5 mg 10/13/24 22:19 Metoprolol Tartrate Inj 5 Mg/5 Ml Vial IV PUSH Q4HR PRN Heart Rate- High Montelukast Sodium 10 mg 10/14/24 09:00 10/15/24 09:48 Montelukast Sodium 10 Mg Tablet PO 10 mg DAILY EMA Administration Rybelsus 7 Mg *Home 7 mg 10/15/24 09:00 10/15/24 09:54 Med* BY MOUTH 11/14/24 08:59 7 mg DAILY EMA Administration Risperidone 4 mg 10/14/24 01:00 10/14/24 20:05 Risperidone 1 Mg Tablet PO Not Given HS EMA Rosuvastatin Calcium 10 mg 10/14/24 09:00 10/15/24 09:48 Rosuvastatin 10 Mg Tablet PO 10 mg DAILY EMA Administration Labs Labs: Laboratory Results - last 24 hr 10/14/24 10/14/24 10/15/24 16:37 20:12 03:29 WBC 7.5 RBC 4.89 Hgb 14.0 Hct 43.3 MCV 88.5 MCH 28.6 MCHC 32.3 RDW 12.7 Plt Count 195 MPV 11.9 H Sodium 135 L Potassium 4.1 Chloride 103 Carbon Dioxide 23 Anion Gap 9 BUN 15 Creatinine 0.80 Estim Creat Clear Calc 126 Estimated GFR > 60 Glucose 308 H POC Capillary Glucose 248 H 356 H Calcium 8.5 Magnesium 1.8 Total Bilirubin 0.5 AST 19 ALT 19 Alkaline Phosphatase 94 Total Protein 6.0 L Albumin 3.4 L 10/15/24 10/15/24 10/15/24 07:07 09:32 11:59 WBC RBC Hgb Hct MCV MCH MCHC RDW Plt Count MPV Sodium Potassium Chloride Carbon Dioxide Anion Gap BUN Creatinine Estim Creat Clear Calc Estimated GFR Glucose POC Capillary Glucose 275 H 260 H 292 H Calcium Magnesium Total Bilirubin AST ALT Alkaline Phosphatase Total Protein Albumin
[2024-10-15 16:55] LABS: Glucose Point of Care 297 mg/dl (65-105)
--- NOTE | 2024-10-15 18:26 | PC.NURSE ---
This patient, Carlitos Melendez, was transferred to [ [facility]] on 10/15/24 at 1815. Personal belongings sent with patient. Report given to [ Paulette ]. Appropriate documentation sent with patient.
[2024-10-15 20:25] LABS: Glucose Point of Care 270 mg/dl (65-105)
[2024-10-16] VITALS (7 sets, daily range): BP systolic 115–123; BP diastolic 82–83; PULSE 52–63; RESP 20; TEMP 36.6–36.7; O2SAT 96–99; BMI 33.5
[2024-10-16 04:37] LABS: Hemoglobin 12.9 g/dL (14.0-18.0); Mean Corpuscular HGB Conc 31.5 g/dl (32-36); Mean Corpuscular Hemoglobin 28.4 pg (26-34); Mean Corpuscular Volume 90.1 fl (80-100); Mean Platelet Volume 12.3 fl (7.4-10.4); Platelet Count Result 190 k/mm3 (150-375); Red Blood Count 4.55 M/mm3 (4.6-6.20); Red Cell Distribution Width 12.8 % (11.5-14.5); White Blood Count 6.7 K/mm3 (4.5-10.0)
[2024-10-16 04:48] LABS: Alanine Aminotransferase 16 U/L (6-50); Albumin Level 3.4 g/dL (3.5-5.1); Alkaline Phosphatase 62 U/L (38-126); Anion Gap 9 mmol/L (4-12); Aspartate Amino Transferase 16 U/L (17-59); Bilirubin,Total 0.8 mg/dL (0.2-1.3); Blood Urea Nitrogen 13 mg/dL (9-20); Calcium 8.7 mg/dL (8.4-10.2); Carbon Dioxide 25 mmol/L (22-30); Chloride 102 mmol/L (98-107); Estimated CRCL calculation 114 ml/min; Estimated Glomerular Filt Rate > 60; Glucose 195 mg/dL (65-110); Magnesium 1.8 mg/dL (1.6-2.3); Potassium 3.6 mmol/L (3.4-5.0); Sodium 136 mmol/L (137-145)
[2024-10-16 07:43] LABS: Glucose Point of Care 228 mg/dl (65-105)
[2024-10-16] MEDS: RYBELSUS 7 MG 7 EACH BY MOUTH (07:54)
[2024-10-16] MEDS: METOPROLOL SUCCINATE EXT REL 50 MG TABCR PO (07:55)
[2024-10-16] MEDS: CEPHALEXIN 500 MG CAPSULE PO (07:55)
[2024-10-16] MEDS: ROSUVASTATIN 10 MG TABLET PO (07:55)
[2024-10-16] MEDS: metFORMIN HCL 500 MG TABLET 1000 MG PO (07:56)
[2024-10-16] MEDS: MONTELUKAST SODIUM 10 MG TABLET PO (07:56)
[2024-10-16] MEDS: APIXABAN 5 MG TABLET PO (07:56)
[2024-10-16] MEDS: INSULIN ASPART (*BKC) 100 UNITS/ML SUB-Q (07:56)
[2024-10-16] MEDS: FLUTICASONE PROPIONATE 0.05% NA SPR 16 GM BTL (*BKC) 1 SPRAY NASAL (07:57)
[2024-10-16] MEDS: INSULIN GLARGINE (*BKC) 100 UNITS/ML 20 UNITS SUB-Q (08:06)
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
[2024-10-16] MEDS: DOXYCYCLINE HYCLATE 100 MG TABLET PO (11:47)
== END 2024-10-16 11:54 | disposition home or self-care (01) | DRG 420 ==
LOC: ANHED 19:50 → ANHICU 20:44 → ANHIMU 10-15 18:22
PROVIDERS: Internal Medicine; Physician Assistant; Admitting Provider General Practice; Emergency Provider Emergency Medicine; Visit Provider Internal Medicine
PROC: 5A2204Z Restoration of Cardiac Rhythm, Single (ICD-10-PCS; CPT 93312; principal; 2024-10-15 08:00)
PROC: 5A2204Z Restoration of Cardiac Rhythm, Single (ICD-10-PCS; 2024-10-15 08:00)
DX: E11.10 Type 2 diabetes mellitus with ketoacidosis without coma (principal); I48.0 Paroxysmal atrial fibrillation; I48.92 Unspecified atrial flutter; I42.9 Cardiomyopathy, unspecified; G47.33 Obstructive sleep apnea (adult) (pediatric); I10 Essential (primary) hypertension; E78.5 Hyperlipidemia, unspecified; M86.662 Other chronic osteomyelitis, left tibia and fibula; J45.909 Unspecified asthma, uncomplicated
CPT/HCPCS: 36415; 36600; 80048; 80053; 80061; 81003; 82010; 82805; 82948; 83036; 83735; 84100; 84443; 85018; 85025; 85027; 87641; 92960; 93005; 93312; 93320; 93325; 96361; 96365; 96366; 96367; 96368; 96375; 99285; A9270; C8929; G0378; G0379; J1815; J2003; J2704; J3480; J7030; J7040; Q9957

== ENCOUNTER 2025-06-02 13:21 | Emergency (ER) | payer OTHER, SELFPAY ==
--- NOTE | ~2025-06-02 | CT_ITS ---
EXAMINATION: CT abdomen pelvis wo con DATE: 06/02/2025 15:47 INDICATION: Left flank pain and left lower quadrant abdominal pain TECHNIQUE: Computed tomography (CT) of the abdomen and pelvis was performed with 100 mL Omnipaque-350 intravenous contrast. Automated exposure control and iterative reconstruction technique were employed. The dose-length product was 403.82 mGy-cm. COMPARISON: 06/21/2024 FINDINGS: Mild dependent atelectasis in the left lower lobe. Heart size is normal. No pericardial or pleural effusion. Liver, gallbladder, spleen, pancreas, bilateral adrenal glands and kidneys are normal. No urolithiasis or hydronephrosis. No abnormal bowel wall thickening or obstruction. Normal appendix. Bladder is normal. Prostatomegaly measuring 5.5 x 4.1 cm. No free intraperitoneal gas or fluid. No pathologically enlarged abdominal or pelvic lymphadenopathy. 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 Mild spondylosis more cephalad lumbar and lower thoracic spine. IMPRESSION: 1. No urolithiasis or other acute intra-abdominal/pelvic process. Reviewed, dictated and finalized at location A. N [employer] REPRESENTATIVE
--- OUTSIDE RECORDS SUMMARY | 2025-06-02 13:24 | XMS_ITS | Clinical Summary ---
Author Organization [facility] Address [address] [place] [address] Care Team Providers Care Counter Stacker Name Role Phone Albina Mosher GUSSET EDGER-SWITCHBOARD WIRER Primary Care Provide r Source Comments [facility],non-owned Affiliates and Associated Physician Practices is amultiple site organization consisting of ambulatory clinics and hospital sitesin [place], [place], [place] and [place]. This disclosure is being madepursuant to the Care Everywhere program and may not contain all information available regarding this patient. Last updated 18.[facility] Allergies No known active allergies Medications * Be aware that medications may not be up to date on this document. Alwaysverify current medications with the patient. acetaminophen-cod eine (Tylenol #3) 300-30 MG tablet Take 1 (one) tablet by mouth every 6 hours as needed pain 07/07/19 25 Active albuterol HFA (Proventil; Ventolin; Proair) 108 (90 Base) MCG/ACT inhaler Inhale 2 (two) puffs by mouth every 6 hours as needed for Shortness of Breath, Cough or Wheezing Active amLODIPine (Norvasc) 10 MG tablet Take 1 (one) tablet by mouth once daily Active amoxicillin (Amoxil) 500 MG tablet Take 1 (one) tablet by mouth once 07/07/19 25 Active Eliquis 5 MG tablet Take 1 (one) tablet by mouth every 12 hours 11/25/19 25 Active Calcium Polycarbophil (Fiber) 625 MG Take 1 (one) tablet by mouth once Active cephalexin (Keflex) 500 MG capsule Take 1 (one) capsule by mouth once daily Active triamcinolone (Nasacort Aq) 55 MCG/ACT nasal inhaler Brinkley 2 (two) sprays into the nose once daily Active sulfamethoxazole- trimethoprim (Bactrim DS; Septra DS) 800-160 MG tablet Take 1 (one) tablet by mouth once daily 06/11/19 25 Active Rybelsus 7 MG tablet Take 1 (one) tablet by mouth once daily Active rosuvastatin (Crestor) 10 MG tablet Take 1 (one) tablet by mouth once daily Active risperiDONE (RisperDAL) 3 MG tablet Take 1 (one) tablet by mouth once daily 03/23/20 24 Active phenazopyridine (Pyridium) 200 MG tablet Take 1 (one) tablet by mouth 3 times daily with meals 06/19/19 25 Active omeprazole (PriLOSEC) 20 MG capsule Take 1 (one) capsule by mouth once daily Active naproxen (Naprosyn) 500 MG tablet Take 1 (one) tablet by mouth 2 times daily 07/22/19 25 Active montelukast (Singulair) 10 MG tablet Take 1 (one) tablet by mouth once daily Active metoprolol succinate XL 24hr (Toprol XL) 50 MG tablet Take 1 (one) tablet by mouth every morning 11/25/19 25 Active metFORMIN ER 24hr (Glucophage XR) 500 MG tablet Take 1 (one) tablet by mouth daily with dinner 10/15/19 25 Active lisinopril (Prinivil; Zestril) 20 MG tablet Take 1 (one) tablet by mouth once daily for high blood pressure Active Lancets (ONETOUCH DELICA PLUS 33G EXTRA FINE LANCET) Inject 100 Each subcutaneously once 09/22/19 25 Active ibuprofen (Motrin) 600 MG tablet Take 1 (one) tablet by mouth every 6 hours as needed pain 07/07/19 25 Active glipiZIDE (Glucotrol) 5 MG tablet Take 1 (one) tablet by mouth once daily 11/17/19 25 Active fluticasone propionate (Flonase) 50 MCG/ACT nasal spray Brinkley 1 (one) spray into each nostril once daily Active doxycycline monohydrate 100 MG tablet Take 1 (one) tablet by mouth once daily Active doxycycline hyclate (Vibramycin) 100 MG capsule Take 1 (one) capsule by mouth once daily Active cetirizine (ZyrTEC) 10 MG tablet Take 1 (one) tablet by mouth once daily Active ciprofloxacin (Cipro) 500 MG tablet Take 1 (one) tablet by mouth 2 times daily 06/19/19 25 Active Social History Tobacco Use Types Packs/Day Years Used Date Smoking Tobacco: Never Assessed Sex and Gender Information Value Date Recorded Sex Assigned at Not on file Legal Sex Male 9:35 AM CDT Gender Identity Not on file Sexual Orientation Not on file Last Filed Vital Signs Vital Sign Reading Time Taken Comments Blood Pressure 138/70 12/09/2024 2:12 PM CDT Pulse 54 12/09/2024 2:12 PM CDT Temperature - - Respiratory Rate - - Oxygen Saturation 94% 12/09/2024 2:12 PM CDT Inhaled Oxygen Concentration - - Weight 123.8 kg (273 lb) 12/09/2024 2:12 PM CDT Height 190.5 cm (6' 3) 12/09/2024 2:12 PM CDT Body Mass Index 34.12 12/09/2024 2:12 PM CDT Plan of Treatment Upcoming Encounters Date Type Department Care Team (Late st Contact Info) Description 06/09/2025 8:00 AM LITIGATION SERVICES MANAGER Ancillary Procedure [facility] - Echosonography [address] [phone] 06/09/2025 9:00 AM LITIGATION SERVICES MANAGER Office Visit [facility] - Cardiology [address] [facility] [id number] [place] [address] Ricardo Calix MD [address] [facility] [address] [place] [address] Health Maintenance Due Date Last Done Comments COLOGUARD (AGES 45-75) - COL ON CA SCREENING 1968 COLON MONITORING 1968 COLONOSCOPY - COLON CA SCREENING 1968 CT COLONOGRAPHY - COLON CA SCREENING 1968 Colorectal Cancer Screening 1968 FIT - COLON CA SCREENING 1968 FLEX SIG - COLON CA SCREENING 1968 HIV SCREENING 1983 HEPATITIS C SCREENING 04/26/1986 DTAP/TDAP/TD VACCINES (1 - Tdap) 1987 HEPATITIS B VACCINE (1 of 3 - 19+ 3-dose series) 1987 PNEUMOCOCCAL VACCINE 50+ (1 of 1 - PCV) 2018 ZOSTER VACCINE (1 of 2) 2018 DEPRESSION SCREENING 06/03/2024 SCREENING FOR DIABETES 12/09/2024 COVID-19 VACCINE (4 - 2024-2 6 season) 2025 07/12/2021, 08/31/2020, 08/03/2020 INFLUENZA VACCINE (#1) 2025 HIB VACCINE Aged Out No longer eligi ble based on patient's age to complete this topic HPV VACCINE Aged Out No longer eligi ble based on patient's age to complete this topic MENINGOCOCCAL (Group B) VACCINE SHARED DECISION-MAKING Aged Out No longer eligible based on patient's age to complete this topic MENINGOCOCCAL GROUPS A/C/Y/W VACCINE Aged Out No longer eligible b ased on patient's age to complete this topic Insurance [facility] Care Teams Counter Stacker Relationship Specialty Start Date End Date Albina Mosher APRN-JUVE [address] [place] [phone] PCP - General Nurse Practitioner Family 10/27/24
--- OUTSIDE RECORDS SUMMARY | 2025-06-02 13:24 | XMS_ITS | Encounter Summary ---
Author Organization [facility] Address [address] [place] [address] Care Team Providers Care Rooming House Operator Name Role Phone Referral, Self Primary Care Provider Unavailabl e Encounter Details Date Type Department Care Team (Late st Contact Info) Description 10/23/2024 Orders Only [facility] Health Information Management [address] [place] [phone] Scanning, Provider Social History Tobacco Use Types Packs/Day Years Used Date Smoking Tobacco: Never Smokeless Tobacco: Never Sex and Gender Information Value Date Recorded Sex Assigned at Not on file Legal Sex Male 2:56 PM CDT Gender Identity Not on file Sexual Orientation Not on file documented as of this encounter Plan of Treatment Not on file documented as of this encounter Procedures Procedure Name Priority Date/Time Associated Diagnosis Comments CARDIOLOGY DOCUMENT SCAN 10/23/2024 9:28 PM CDT documented in this encounter Results * Cardiology Document Scan (10/23/2024 9:28 PM CDT) Anatomical Region Laterality Modality Other us Provider Scanning CV CARDIAC SERVICES PROCEDURES Final Result documented in this encounter Visit Diagnoses Not on filedocumented in this encounter Care Teams Rooming House Operator Relationship Specialty Start Date End Date Referral, Self PCP - General 10/09/23 documented as of this encounter
--- OUTSIDE RECORDS SUMMARY | 2025-06-02 13:24 | XMS_ITS | Clinical Summary ---
Author Organization [facility] Address [address] [place] [address] Phone Care Team Providers Care Maintenance Mechanic Telephone Name Role Phone Provider, None Primary Care [...] APPOINTMENT 4 Active Lancets (OneTouch Delica Plus [id number]) Misc USE 1 TO CHECK GLUCOSE TWICE [...] Tablet Take 7 mg by mouth. Active Immunizations Immunization Administration Dates Next Due Covid-19, [...] on file Legal Sex Male 1:30 PM JACQUARD CARD LACER Gender Identity Not on file Sexual Orientation Not on file Last Filed Vital Signs Vital Sign Reading Time Taken Comments Blood Pressure 132/77 08/12/2024 9:45 AM CDT Pulse 66 08/12/2024 9:45 AM CDT Temperature - - Respiratory Rate 18 08/12/2024 9:45 AM CDT Oxygen Saturation 94% 08/12/2024 9:45 AM CDT Inhaled Oxygen Concentration - - Weight - - Height 190.5 cm (6' 3) 08/12/2024 9:45 AM CDT Body Mass Index - - Plan of Treatment Upcoming Encounters Date Type Department Care Team (Late st Contact Info) Description 08/18/2025 9:30 AM CDT Office Visit [facility] [address] [place] [phone] Toni Haque MD [address], [address] [phone] Health Maintenance Due Date Last Done Comments Hepatitis C Virus (HCV) Screening 1968 TdaP Immunization 1968 Hepatitis B Immunization (1 of 3 - 19+ 3-dose series) 1987 Cologuard 2013 Colonoscopy 2013 Colorectal Cancer Screening 2013 Immunochemical Fecal Occult Blood 2013 Pneumococcal Immunization (5 0+ years) (1 of 1 - PCV) 2018 Zoster Immunization (1 of 2) 2018 Influenza Immunization (#1) 2025 SARS-COV-2 Immunization ( season) 2025 07/12/2021, 08/31/2020, 08/03/2020 Respiratory Syncytial Virus (RSV) Immunization (Adult) (1 - 1-dose 75+ series) 2043 PSA Discussion Completed 08/12/2024 Human Papillomavirus (HPV) Immunization (No Doses Required) Completed Meningococcal Immunization (ACWY) Aged Out No longer eligible b ased on patient's age to complete this topic Rotavirus Immunization Aged Out No lo nger eligible based on patient's age to complete this topic Procedures Procedure Name Priority Date/Time Associated Diagnosis Comments PSA SCREEN Routine 08/12/2024 10:30 AM CDT Prostate cancer screening from Last 3 Months or Most Recently Relevant to Health Maintenance Results * (ABNORMAL) PSA SCREEN (08/12/2024 10:30 AM CDT) PSA SCREEN, TOTAL 4.34(H) <4.00 ng/mL 08/12/2024 12:08 PM CDT [facility] Blood Venipuncture / Unknown 08/12/2024 10:30 AM CDT 08/12/2024 11:18 AM CDT Narrative [facility] - 08/12/2024 12:08 PM CDT The ALINITY Total PSA assay is a Chemiluminescent Microparticle Immunoassay (CMIA) for the quantitative determination of total PSA (both free PSA and PSA complexed to [id number]) in human serum. Total PSA values obtained with different assay methods, including Leggett PSA assays, cannot be used interchangeably. us Toni Haque MD CHEMISTRY ORDERABLES Final Resul t [facility] [address] [place] [address] from Last 3 Months or Most Recently Relevant to Health Maintenance Insurance MEDICAID [place] Care Teams Maintenance Mechanic Telephone Relationship Specialty Start Date End Date Provider, None [place] PCP - General 08/11/24 Provider, None [place] 08/12/24 Toni Haque MD [address], [facility] [address] [place] [address] Consulting Physician Urology 08/12/24
--- OUTSIDE RECORDS SUMMARY | 2025-06-02 13:24 | XMS_ITS | Clinical Summary ---
Author Organization [facility] Address [address] [place] [address] Care Team Providers Care Roll Weigher Name Role Phone Referral, Self Primary Care [...] 2 sprays into affected nostril(s) daily Active naproxen (NAPROSYN) 500 mg tablet Take 1 tablet (500 mg total) by mouth 2 (two) times a day with meals for 10 days 20 tablet 5 Active Active Problems Problem Noted Date Diagnosed Date Osteomyelitis of left tibia 10/14/2023 Assessment & Plan (07/27/2024 12:09 PM INSPECTOR CANNED FOOD RECONDITIONING): -Patient presents to clinic for a follow [...] Comments Blood Pressure 109/70 07/22/2024 1:09 PM INSPECTOR CANNED FOOD RECONDITIONING Pulse 93 07/22/2024 1:09 PM INSPECTOR CANNED FOOD RECONDITIONING Temperature 36.8 C (98.3 F) 07/22/2024 1:09 PM INSPECTOR CANNED FOOD RECONDITIONING Respiratory Rate 18 03/04/2024 1:14 PM CDT Oxygen Saturation 93% 07/22/2024 1:09 PM INSPECTOR CANNED FOOD RECONDITIONING Inhaled Oxygen Concentration - - Weight 136.9 kg (301 lb 14.4 oz) 07/22/2024 1:09 PM INSPECTOR CANNED FOOD RECONDITIONING Height 192 cm (6' 3.59) 07/22/2024 1:09 PM INSPECTOR CANNED FOOD RECONDITIONING Body Mass Index 37.15 07/22/2024 1:09 PM INSPECTOR CANNED FOOD RECONDITIONING Plan of Treatment Health Maintenance Due Date [...] (1 of 2) 2018 Covid-19 Vaccine ( - season) 2025 07/12/2021, 08/31/2020, 08/03/2020 Influenza Vaccine (#1) 2025 eGFR 07/22/2025 07/22/2024, 01/22/2024 Procedures Procedure Name Priority Date/Time Associated Diagnosis Comments EGFR Routine 07/22/2024 1:29 PM INSPECTOR CANNED FOOD RECONDITIONING Other chronic osteomyelitis of left tibia (HCC) from Last 3 Months or Most Recently Relevant to Health Maintenance Results * eGFR (07/22/2024 1:29 PM INSPECTOR CANNED FOOD RECONDITIONING) eGFR 68 >=60 mL/min/1. 73 m2 Comment: [...] last reviewed 2021. Blood 07/22/2024 1:29 PM INSPECTOR CANNED FOOD RECONDITIONING 07/22/2024 2:50 PM INSPECTOR CANNED FOOD RECONDITIONING Yazmin Loco NP LAB BLOOD ORDERABLES Final Result [facility] Department [place] [address] from Last 3 Months or Most Recently Relevant to Health Maintenance Insurance [facility] Care Teams Roll Weigher Relationship Specialty Start Date End Date Referral, Self PCP - General 10/09/23
--- OUTSIDE RECORDS SUMMARY | 2025-06-02 13:24 | XMS_ITS | Clinical Summary ---
Author Organization [facility] Address [address] [place] [phone] Care Team Providers Care Process Laboratory Specialist Name Role Phone Unavailable Primary Care Provider Unavailabl e Allergies No known active allergies Medications lisinopril (ZESTRIL) 20 MG tablet Take 1 tablet (20 mg) by mouth daily Active triamcinolone (NASACORT) nasal spray 2 sprays by Nasal route daily Active omeprazole (PRILOSEC) 20 MG capsule Take 1 capsule (20 mg) by mouth 1 (one) time each day Active naproxen (EC NAPROSYN) 500 MG EC tablet Take 1 tablet (500 mg) by mouth Active doxycycline (VIBRAMYCIN) 100 MG capsule Take 1 capsule (100 mg) by mouth 2 times daily Active polycarbophil (FIBERCON) 625 MG tablet Take 1 tablet (625 mg) by mouth 2 times daily Active cephALEXin (KEFLEX) 500 MG capsule Take 1 capsule (500 mg) by mouth 2 times daily Active montelukast (SINGULAIR) 10 MG tablet Take 1 tablet (10 mg) by mouth every evening Active Active Problems Problem Noted Date Diagnosed Date Plantar fasciitis of right foot 01/29/2023 04/16/2023 Right foot pain 01/29/2023 04/16/2023 Schizophrenia 05/08/2021 Osteomyelitis 01/03/2021 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 01/03/2021 HTN (hypertension) 01/03/2021 Type 2 diabetes mellitus 01/03/2021 Asthma 01/03/2021 GERD (gastroesophageal reflux disease) Immunizations Immunization Administration Dates Next Due Covid-19 28 Day Interval Moderna 08/31/2020,0308/2020 Family History Medical History Relation Name Comments No Known Problems Father No Known Problems Mother Relation Name Status Comments Brother Alive Father Mother Sister Alive Social History Tobacco Use Types Packs/Day Years Used Date Smoking Tobacco: Never Passive Smoke Exposure: Never Smokeless Tobacco: Never Tobacco Cessation:Counseling Given: No Alcohol Use Standard Drinks/Week Comments Not Currently 0 (1 standard drink = 0.6 oz pur e alcohol) Alcohol Use Answer Date Recorded Frequency of Alcohol Consumption Not on file 10/29/2023 Average Number of Drinks Not on file 024 Frequency of Binge Drinking Not on file 10/02 Alcohol Use Status Not Currently 10/29/2023 Average alcohol consumption Not on file 10/02 Sex and Gender Information Value Date Recorded Sex Assigned at Not on file Legal Sex Male 7:30 PM CDT Gender Identity Not on file Sexual Orientation Not on file Last Filed Vital Signs Vital Sign Reading Time Taken Comments Blood Pressure 128/80 04/16/2023 8:24 AM STRATEGIC MANAGER Pulse 59 04/16/2023 8:24 AM STRATEGIC MANAGER Temperature 35.6 C (96.1 F) 04/16/2023 8:24 AM STRATEGIC MANAGER Respiratory Rate 18 10/10/2022 10:13 AM CDT Oxygen Saturation 93% 10/10/2022 10:13 AM CDT Inhaled Oxygen Concentration - - Weight 177.8 kg (392 lb) 04/16/2023 8:24 AM STRATEGIC MANAGER Height 190.5 cm (6' 3) 10/10/2022 10:13 AM CDT Body Mass Index 49 10/10/2022 10:13 AM CDT Plan of Treatment Health Maintenance Due Date Last Done Comments DIABETIC FOOT EXAM 1968 Diabetic Eye Exam 1968 HIV Screening 1968 Hepatitis C Screening ages 1 8 to 79 once 1968 LIPID TESTING 1968 URINARY MICROALBUMIN IN DIABETES 1968 MMR VACCINES (1 of 1 - Standard series) 1969 YEARLY WELLNESS EXAM 1971 DEPRESSION SCREENING 1980 ADULT TETANUS 1987 HEPATITIS B VACCINES (1 of 3 - 19+ 3-dose series) 1987 Pneumococcal Vaccine: Peds t o 50 & At-Risk Patients (1 of 2 - PCV) 1987 Colon Cancer Screening 2013 Zoster Vaccine (Recombinant Vaccine) (1 of 2) 2018 Diabetes follow-up every 6 months by HEMOGLOBIN A1C 07/25/2021 01/22/2021 Influenza Vaccine 01/01/2025 COVID-19 Immunization ( season) 2025 08/31/2020, 08/03/2020 HEPATITIS A VACCINES Aged Out No long er eligible based on patient's age to complete this topic HIB VACCINES Aged Out No longer eligi ble based on patient's age to complete this topic HPV VACCINES Aged Out No longer eligi ble based on patient's age to complete this topic IPV VACCINES Aged Out No longer eligi ble based on patient's age to complete this topic MENINGOCOCCAL VACCINE Aged Out No jillian danielle eligible based on patient's age to complete this topic Meningococcal B Vaccine Aged Out No l onger eligible based on patient's age to complete this topic ROTAVIRUS VACCINES Aged Out No longer eligible based on patient's age to complete this topic Medical Devices Implanted Type Area Commodity Buyer Device Identifier Shelf Expiration Date Model / Serial / Lot Cement Bone Irvin R Cn [id number] - [id number] Implanted:Qty: 1 on 01/03/2021 by Issac Euceda MD at [facility] Cement Left: Tibia ZIMMMER 12/31/2024 [id number] / / [id number] Procedures Procedure Name Priority Date/Time Associated Diagnosis Comments HEMOGLOBIN A1C Routine 01/22/2021 6:00 AM CDT from Last 3 Months or Most Recently Relevant to Health Maintenance Results * (ABNORMAL) HEMOGLOBIN A1C (01/22/2021 6:00 AM CDT) Hemoglobin A1C 6.0(H) 4.0 - 5.6 % [facility] Estimated Average Glucose 126(H) 68 - 114 MG/DL [facility] Blood specimen (specimen) 01/22/2021 6:00 AM CDT 01/22/2021 6:10 AM CDT us Frederick Horton MD CHEMISTRY ORDERABLES Final Re sult [facility] [address] [place] [address] from Last 3 Months or Most Recently Relevant to Health Maintenance Insurance [place] MEDICA[place] Advance Directives * Full Code (Latest Code Status on File) Date Activated Date Inactivated Comments 01/03/2021 12:45 AM 01/25/2021 8:16 PM
[2025-06-02 13:30] VITALS: BP 154/89; PULSE 76; RESP 18; TEMP 36.6; O2SAT 96
--- NOTE | 2025-06-02 15:16 | ED_ITS ---
HPI - Back Pain/Injury General Chief Complaint: Back Pain/Injury <KATE Castrejon Last Filed: 06/02/25 18:36> Stated Complaint: left flank pain <KATE Castrejon Last Filed: 06/02/25 18:36> Time Seen by Provider: 06/02/25 15:16 <KATE Castrejon Last Filed: 06/02/25 18:36> Focused HPI: Patient is a 55 y/o male who presents to the ED with c/o L flank pain. Patient reports having pain for the past 1.5 weeks. Today, began having sharp pain radiating around to his L lower abdomen. Called his PCP and was referred to the ED for further evaluation. Denies hx of similar pain. Pain worse with movement. Tried taking Motrin w/o improvement. Denies hx of kidney stones. Denies dysuria, hematuria, N/V/D, scrotal pain, recent heavy lifting/strenuous activity. GENERAL: Well-appearing, well-nourished, and in no acute distress. HEAD: Normocephalic, atraumatic. CHEST: Clear to auscultation. ?No respiratory distress. HEART: Regular rate and rhythm.? MSK: TTP in L cva /mid back region. NEURO: ?Alert and oriented x3. Patient screened in triage and initial orders placed.? ?Additional care and disposition to be based upon?diagnostic testing and treatment. <KATE Castrejon Last Filed: 06/02/25 18:36> Source: patient <KATE Castrejon Last Filed: 06/02/25 18:36> Mode of arrival: ambulatory <KATE Castrejon Last Filed: 06/02/25 18:36> Limitations: no limitations <KATE Castrejon Last Filed: 06/02/25 18:36> Related Data Home Medications: Home Medications ?Medication ?Instructions ?Recorded ?Confirmed ?Last Taken ?Type amlodipine 10 mg tablet 10 mg PO DAILY 10/13/2410/0110/13/24 History cephalexin 500 mg capsule 500 mg PO DAILY 10/13/2410/13/24 History doxycycline monohydrate 100 mg 100 mg PO DAILY 5 10/13/24 10/13/24 History tablet fluoxetine 20 mg capsule 20 mg PO DAILY 10/13/2410/0110/13/24 History fluticasone propionate 50 1 spray intranasal DAILY 10/13/24 10/13/24 History mcg/actuation nasal spray,suspension lisinopril 20 mg tablet 20 mg PO DAILY 10/13/2410/0110/13/24 History metformin 500 mg tablet,extended 1,000 mg PO BID 10/1310/13/24 10/13/24 History release 24 hr montelukast 10 mg tablet 10 mg PO DAILY 10/13/2410/0110/13/24 History risperidone 4 mg tablet 4 mg PO HS 10/13/24 10/13/24 10/12/24 History rosuvastatin 10 mg tablet 10 mg PO DAILY 10/13/2410/0110/13/24 History semaglutide 7 mg tablet (Rybelsus) 7 mg PO DAILY 10/1310/13/24 10/13/24 History <Loretta Levy PA-C - Last Filed: 06/02/25 18:36> Allergies/Adverse Reactions: Allergies Allergy/AdvReac Type Severity Reaction Status Date / Time No Known Allergies Allergy Verified 06/02/25 13:32 <Loretta Levy PA-C - Last Filed: 06/02/25 18:36> Review of Systems 2 Review of Systems: All systems reviewed & are unremarkable except as noted in HPI and below <Franky Rosario MD - Last Filed: 06/02/25 19:51> [facility] Past Medical History Medical History: Medical History Hyperlipidemia Hypertension Diabetes Asthma Acid reflux Fatigue Deviated nasal septum Allergic rhinitis <Loretta Levy PA-C - Last Filed: 06/02/25 18:36> Family History Family History: Family History Mother Asthma Hypertension Father Diabetes mellitus <Loretta Levy PA-C - Last Filed: 06/02/25 18:36> Social History Social History: Social History Smoking status: Never smoker Alcohol intake: current Drinks per week: 0 Substance use: never Lack of Transportation: No Lack of Food: Never True Current Housing: I Have Housing Concerned About Future Housing: No Difficulty Paying Gas/Electric Bills: No Difficulty Paying for Meds: No Currently Unemployed: No Education: High School Diploma/GED Difficulty w/ Childcare or Family Care: No Spiritual care concerns: No <Loretta Levy PA-C - Last Filed: 06/02/25 18:36> Exam 2 Narrative: APPEARANCE: Well appearing, no pain, no distress, well-nourished. HEAD: normocephalic, atraumatic. EYES: PERRLA/EOMI, conjunctivae clear. NOSE: Normal no drainage EARS:TMS clear with good light reflex. THROAT: Pharynx clear, no exudate. NECK: Supple. No adenopathy, no masses. RESPIRATORY: Airway patent, respirations nonlabored. Clear to auscultation bilaterally, no rales, rhonchi, wheezing. CARDIOVASCULAR: Regular rate and rhythm without murmurs rubs or gallops. ABDOMINAL: Soft, nontender, nondistended, normal bowel sounds MUSCULOSKELETAL: Moves all extremities. Strength/ROM intact, No edema, No calf tenderness. NEURO: Alert. Cranial nerves II through XII intact. Good gait. Good coordination SKIN: Warm, dry. Normal Color PSYCHIATRIC: Normal affect/mood. <Franky Rosario MD - Last Filed: 06/02/25 19:51> Course Vital Signs Vital signs: Vital Signs Temperature 97.8 F 06/02/25 13:30 Pulse Rate 76 06/02/25 13:30 Respiratory Rate 18 06/02/25 13:30 Blood Pressure 154/89 H 06/02/25 13:30 Pulse Oximetry 96 06/02/25 13:30 Oxygen Delivery Room Air 06/02/25 13:30 Temperature 97.8 F 06/02/25 13:30 Pulse Rate 76 06/02/25 13:30 Respiratory Rate 18 06/02/25 13:30 Blood Pressure 154/89 H 06/02/25 13:30 Pulse Oximetry 96 06/02/25 13:30 Oxygen Delivery Room Air 06/02/25 13:30 <Loretta Levy PA-C - Last Filed: 06/02/25 18:36> Vital Signs Temperature 97.8 F 06/02/25 13:30 Pulse Rate 76 06/02/25 13:30 Respiratory Rate 18 06/02/25 13:30 Blood Pressure 154/89 H 06/02/25 13:30 Pulse Oximetry 96 06/02/25 13:30 Oxygen Delivery Room Air 06/02/25 13:30 Temperature 97.8 F 06/02/25 13:30 Pulse Rate 76 06/02/25 13:30 Respiratory Rate 18 06/02/25 13:30 Blood Pressure 154/89 H 06/02/25 13:30 Pulse Oximetry 96 06/02/25 13:30 Oxygen Delivery Room Air 06/02/25 13:30 <Franky Rosario MD - Last Filed: 06/02/25 19:51> [facility] Narrative Medical decision making narrative: MSE by LISET in triage <Loretta Levy PA-C - Last Filed: 06/02/25 18:36> MSE by LISET in triage 55-year-old male presents emergency department for evaluation for left-sided back pain. CT was negative for acute abnormality. UA was negative for infection. Patient's exam is consistent with musculoskeletal injury. Patient was provided outpatient medications for pain control. Patient was updated on reasons to return to the emergency department. All questions concerns were addressed patient was well-appearing at time of discharge. <Franky Rosario MD - Last Filed: 06/02/25 19:51> Differential Diagnosis Differential Diagnosis: Back strain, ureteral calculi, UTI <Franky oRsario MD - Last Filed: 06/02/25 19:51> Lab Data [facility] Lab Attestation statement: I personally reviewed the patient's lab results. <Franky Rosario MD - Last Filed: 06/02/25 19:51> Result diagrams: 06/02/25 15:21 06/02/25 15:21 <Loretta Levy PA-C - Last Filed: 06/02/25 18:36> Labs: Lab Results 06/02/25 06/02/25 Range/Units 15:21 16:13 WBC 8.6 (4.5-10.0) K/mm3 RBC 5.54 (4.6-6.20) M/mm3 Hgb 17.1 D (14.0-18.0) g/dL Hct 51.3 (42.0-52.0) % MCV 92.6 (80-100) fl MCH 30.9 (26-34) pg MCHC 33.3 (32-36) g/dl RDW 12.9 (11.5-14.5) % Plt Count 204 (150-375) k/mm3 MPV 11.0 H (7.4-10.4) fl Immature Gran % (Auto) 0.2 (0-0.5) % Neut % (Auto) 59.5 (45.5-73.1) % Lymph % (Auto) 28.7 (18.3-44.2) % Alpine % (Auto) 10.0 H (2.6-8.5) % Eos % (Auto) 0.8 (0-4.4) % Baso % (Auto) 0.8 (0.2-1.2) % Lymph # (Auto) 2.46 (0.9-3.2) K/mm3 Alpine # (Auto) 0.9 H (0.1-0.6) K/mm3 Eos # (Auto) 0.1 (0-0.3) K/mm3 Baso # (Auto) 0.1 (0.0-0.1) K/mm3 Abs Immat Gran (auto) 0.02 (0.00-0.031) K/mm3 Absolute Neuts (auto) 5.1 (1.3-6.7) K/mm3 Absolute Nucleated RBC 0.000 (0.0-0.012) K/mm3 Nucleated RBC % 0.0 (0.0-0.2) % Sodium 139 (137-145) mmol/L Potassium 4.2 (3.4-5.0) mmol/L Chloride 106 (98-107) mmol/L Carbon Dioxide 27 (22-30) mmol/L Anion Gap 6 (4-12) mmol/L BUN 17 (9-20) mg/dL Creatinine 1.18 (0.7-1.3) mg/dL Estim Creat Clear Calc 85 ml/min Estimated GFR > 60 (59 - ) Glucose 79 (65-110) mg/dL Calcium 9.5 (8.4-10.2) mg/dL Total Bilirubin 0.7 (0.2-1.3) mg/dL AST 27 (17-59) U/L ALT 15 (6-50) U/L Alkaline Phosphatase 57 (38-126) U/L Total Protein 7.7 (6.3-8.2) g/dL Albumin 4.4 (3.5-5.1) g/dL Urine Color Yellow (Yellow) Urine Appearance Clear (Clear) Urine pH 5.5 (5.0-9.0) Ur Specific Bowman 1.014 (1.001-1.035) Urine Protein Negative (Negative) mg/dL Urine Glucose (UA) Negative (Negative) mg/dL Urine Ketones Negative (Negative) mg/dL Ur Blood (Man) Negative (Negative) Urine Nitrate Negative (Negative) Urine Bilirubin Negative (Negative) Urine Urobilinogen 0.2 (<2.0) mg/dL Leukocyte Esterase Rfl Negative (Negative) CASSANDRA/UL <Loretta Levy PA-C - Last Filed: 06/02/25 18:36> Lab Results 06/02/25 06/02/25 Range/Units 15:21 16:13 WBC 8.6 (4.5-10.0) K/mm3 RBC 5.54 (4.6-6.20) M/mm3 Hgb 17.1 D (14.0-18.0) g/dL Hct 51.3 (42.0-52.0) % MCV 92.6 (80-100) fl MCH 30.9 (26-34) pg MCHC 33.3 (32-36) g/dl RDW 12.9 (11.5-14.5) % Plt Count 204 (150-375) k/mm3 MPV 11.0 H (7.4-10.4) fl Immature Gran % (Auto) 0.2 (0-0.5) % Neut % (Auto) 59.5 (45.5-73.1) % Lymph % (Auto) 28.7 (18.3-44.2) % Alpine % (Auto) 10.0 H (2.6-8.5) % Eos % (Auto) 0.8 (0-4.4) % Baso % (Auto) 0.8 (0.2-1.2) % Lymph # (Auto) 2.46 (0.9-3.2) K/mm3 Alpine # (Auto) 0.9 H (0.1-0.6) K/mm3 Eos # (Auto) 0.1 (0-0.3) K/mm3 Baso # (Auto) 0.1 (0.0-0.1) K/mm3 Abs Immat Gran (auto) 0.02 (0.00-0.031) K/mm3 Absolute Neuts (auto) 5.1 (1.3-6.7) K/mm3 Absolute Nucleated RBC 0.000 (0.0-0.012) K/mm3 Nucleated RBC % 0.0 (0.0-0.2) % Sodium 139 (137-145) mmol/L Potassium 4.2 (3.4-5.0) mmol/L Chloride 106 (98-107) mmol/L Carbon Dioxide 27 (22-30) mmol/L Anion Gap 6 (4-12) mmol/L BUN 17 (9-20) mg/dL Creatinine 1.18 (0.7-1.3) mg/dL Estim Creat Clear Calc 85 ml/min Estimated GFR > 60 (59 - ) Glucose 79 (65-110) mg/dL Calcium 9.5 (8.4-10.2) mg/dL Total Bilirubin 0.7 (0.2-1.3) mg/dL AST 27 (17-59) U/L ALT 15 (6-50) U/L Alkaline Phosphatase 57 (38-126) U/L Total Protein 7.7 (6.3-8.2) g/dL Albumin 4.4 (3.5-5.1) g/dL Urine Color Yellow (Yellow) Urine Appearance Clear (Clear) Urine pH 5.5 (5.0-9.0) Ur Specific Bowman 1.014 (1.001-1.035) Urine Protein Negative (Negative) mg/dL Urine Glucose (UA) Negative (Negative) mg/dL Urine Ketones Negative (Negative) mg/dL Ur Blood (Man) Negative (Negative) Urine Nitrate Negative (Negative) Urine Bilirubin Negative (Negative) Urine Urobilinogen 0.2 (<2.0) mg/dL Leukocyte Esterase Rfl Negative (Negative) CASSANDRA/UL <Franky Rosario MD - Last Filed: 06/02/25 19:51> Imaging Data Radiologist's impression: ITS Impressions Abdomen/Pelvis CT 06/02/25 16:13 IMPRESSION: 1. No urolithiasis or other acute intra-abdominal/pelvic process. <Loretta Levy PA-C - Last Filed: 06/02/25 18:36> ITS Impressions Abdomen/Pelvis CT 06/02/25 16:13 IMPRESSION: 1. No urolithiasis or other acute intra-abdominal/pelvic process. <Franky Rosario MD - Last Filed: 06/02/25 19:51> Discharge Plan Discharge Clinical Impression: Back pain <Loretta Levy PA-C - Last Filed: 06/02/25 18:36> Patient Disposition: Home <Loretta Levy PA-C - Last Filed: 06/02/25 18:36> Condition: Stable <Loretta Levy PA-C - Last Filed: 06/02/25 18:36> Instructions: Antibiotic Form, Acute Low Back Pain (ED) <Loretta Levy PA-C - Last Filed: 06/02/25 18:36> Additional Instructions: Avoid ibuprofen since your on Eliquis. Medrol Dosepak as directed. [place] as needed for pain control. Flexeril for muscle spasm. Have close follow-up with your primary care physician. If you have any worsening symptoms then please call or return to the emergency department. <Loretta Levy PA-C - Last Filed: 06/02/25 18:36> Patient Language: Polish <Loretta Levy PA-C - Last Filed: 06/02/25 18:36> Prescriptions: New cyclobenzaprine 10 mg tablet 10 mg PO BID PRN (Reason: muscle spasm) Qty: 14 0RF hydrocodone-acetaminophen 5-325 mg tablet 1 tablet PO Q12H PRN (Reason: pain) Qty: 14 0RF methylprednisolone [Medrol (Vinh)] 4 mg tablets,dose pack See Rx Instructions .ROUTE .COMPLEX Qty: 21 0RF Rx Instructions: for 6 days No Action risperidone 4 mg tablet 4 mg PO HS lisinopril 20 mg tablet 20 mg PO DAILY doxycycline monohydrate 100 mg tablet 100 mg PO DAILY amlodipine 10 mg tablet 10 mg PO DAILY cephalexin 500 mg capsule 500 mg PO DAILY montelukast 10 mg tablet 10 mg PO DAILY fluoxetine 20 mg capsule 20 mg PO DAILY fluticasone propionate 50 mcg/actuation spray,suspension 1 spray INTRANASAL DAILY metformin 500 mg tablet extended release 24 hr 1,000 mg PO BID rosuvastatin 10 mg tablet 10 mg PO DAILY Rybelsus 7 mg tablet 7 mg PO DAILY Eliquis 5 mg Tablet 5 mg PO Q12HR Qty: 60 0RF glipizide 5 mg tablet 5 mg PO DAILY Qty: 30 0RF metoprolol succinate 50 mg Tablet Extended Release 24 Hr 50 mg PO QAM Qty: 30 0RF <Loretta Levy PA-C - Last Filed: 06/02/25 18:36> Follow-up/Referrals: UNKNOWN,DOCTOR [Primary Care Provider] <Loretta Levy PA-C - Last Filed: 06/02/25 18:36> Stand Alone Forms: Work/School Release IP <Loretta Levy PA-C - Last Filed: 06/02/25 18:36>
[2025-06-02 15:27] LABS: Hematocrit 51.3 % (42.0-52.0); Hemoglobin 17.1 g/dL (14.0-18.0); Immature Granulocyte Percent A 0.2 % (0-0.5); Lymphocytes Absolute Auto 2.46 K/mm3 (0.9-3.2); Mean Corpuscular HGB Conc 33.3 g/dl (32-36); Mean Corpuscular Hemoglobin 30.9 pg (26-34); Mean Corpuscular Volume 92.6 fl (80-100); Nucleated Red Blood Cells Absolute Auto 0.000 K/mm3 (0.0-0.012); Nucleated Red Blood Cells Perc 0.0 % (0.0-0.2); Platelet Count Result 204 k/mm3 (150-375); Red Blood Count 5.54 M/mm3 (4.6-6.20); White Blood Count 8.6 K/mm3 (4.5-10.0)
[2025-06-02 15:39] LABS: Alanine Aminotransferase 15 U/L (6-50); Albumin Level 4.4 g/dL (3.5-5.1); Alkaline Phosphatase 57 U/L (38-126); Anion Gap 6 mmol/L (4-12); Aspartate Amino Transferase 27 U/L (17-59); Bilirubin,Total 0.7 mg/dL (0.2-1.3); Blood Urea Nitrogen 17 mg/dL (9-20); Calcium 9.5 mg/dL (8.4-10.2); Carbon Dioxide 27 mmol/L (22-30); Chloride 106 mmol/L (98-107); Estimated CRCL calculation 85 ml/min; Estimated Glomerular Filt Rate > 60; Glucose 79 mg/dL (65-110); Potassium 4.2 mmol/L (3.4-5.0); Sodium 139 mmol/L (137-145); Total Protein 7.7 g/dL (6.3-8.2)
[2025-06-02 16:19] LABS: Add Urine Microscopic? NO; Appearance Urine Clear (Clear); Glucose Urine UA Negative (Negative); Leukocyte Esterase Ur Negative LEU/UL (Negative); Nitrate Urine Negative (Negative); Specific Grav Ur 1.014 (1.001-1.035)
[2025-06-02] MEDS: dexAMETHasone SOD PHOS INJ 10 MG/ML 1 ML VIAL IM (17:28)
[2025-06-02] MEDS: CYCLOBENZAPRINE HCL 10 MG TABLET PO (17:29)
[2025-06-02] MEDS: HYDROcodone/acetaminophen (*CRX) 10-325 MG TABLET 1 TAB PO (17:29)
== END 2025-06-02 17:55 | disposition home or self-care (01) ==
PROVIDERS: Physician Assistant; Emergency Provider Emergency Medicine
DX: M54.9 Dorsalgia, unspecified (principal); R10.A2 Flank pain, left side; E78.5 Hyperlipidemia, unspecified; I10 Essential (primary) hypertension; E11.9 Type 2 diabetes mellitus without complications
CPT/HCPCS: 36415; 74176; 80053; 81003; 85025; 96372; 99284; A9270; J1100